=== PATIENT | female | born 1950 | race Caucasian/White ===

== ENCOUNTER → 2019-12-30 19:22 | Outpatient (ROUT) | payer MEDICARE, OTHER, SELFPAY ==
[2019-12-30 19:48] LABS: Add Manual Diff / Slide Review NO; Basophils Absolute Auto 100 /uL (0-100); Basophils Percent Auto 1.2 % (0-2); Eosinophils Absolute Auto 200 /uL (0-450); Eosinophils Percent Auto 2.6 % (2-4); Hematocrit 38.6 % (36-46); Hemoglobin 12.7 g/dL (12.0-16.0); Lymphocytes Absolute Auto 1100 /uL (1100-4500); Lymphocytes Percent Auto 17.7 % (25-40); Mean Corpuscular HGB Conc 32.8 % (30-36); Mean Corpuscular Hemoglobin 30.1 PG (26-34); Mean Corpuscular Volume 91.6 fL (80-100); Monocytes Absolute Auto 700 /uL (0-900); Monocytes Percent Auto 11.3 % (3-14); Neutrophils Absolute Auto 4200 /uL (1500-7000); Neutrophils Percent Auto 67.2 % (50-75); Platelet Count 306 X10^3/uL (150-400); Red Blood Cell Count 4.21 X10^6/uL (4.0-5.2); White Blood Cell Count 6.3 X10^3/uL (4.5-11.0)
[2019-12-30 20:00] LABS: Alanine Aminotransferase 31 IU/L (<35); Albumin Globulin Ratio 1.6 (1.0-2.8); Alkaline Phosphatase 112 U/L (38-126); Aspartate Aminotransferase 33 IU/L (14-36); BUN Creatinine Ratio 20.4 (6-22); Bilirubin Total 0.5 mg/dL (0.2-1.3); Blood Urea Nitrogen 10 mg/dL (7-17); Calcium 9.2 mg/dL (8.4-10.2); Carbon Dioxide 27 mmol/L (22-32); Chloride 108 mmol/L (98-107); Cholesterol 175 mg/dL (140-199); Estimated Glomerular Filt Rate > 60.0 mL/min (>60); Globulin 2.5 g/dL (1.7-4.1); Glucose 89 mg/dL (80-110); HDL Cholesterol 61 mg/dL (40-60); HEMOLYSIS 18 (0-50); LDL Cholesterol Calculated 89 mg/dL (<100); Potassium 4.4 mmol/L (3.4-5.1); Sodium 139 mmol/L (137-145); Total Protein 6.5 g/dL (6.3-8.2); Triglycerides 125 mg/dL (35-150)
[2019-12-30 20:04] LABS: Hemoglobin A1C% w Est Avg Glu 5.8 % (4.0-6.0)
[2019-12-30 20:29] LABS: TSH w/ Reflex to FT4 1.15 uIU/mL (0.47-4.68)
== END ==
PROVIDERS: Visit Provider Internal Medicine
DX: R60.9 Edema, unspecified (principal); E78.2 Mixed hyperlipidemia; E03.9 Hypothyroidism, unspecified; R73.01 Impaired fasting glucose
CPT/HCPCS: 80053; 80061; 83036; 84443; 85025

== ENCOUNTER → 2020-08-02 17:24 | Outpatient (ROUT) | payer MEDICARE, OTHER, SELFPAY ==
[2020-08-02 18:13] LABS: COVID19 -Nasal RAPID POSITIVE (Negative)
== END ==
PROVIDERS: Visit Provider Physician Assistant
DX: U07.1 COVID-19 (principal)
CPT/HCPCS: 87635

== ENCOUNTER → 2020-08-18 11:25 | Outpatient (CLI) | payer MEDICARE, OTHER, SELFPAY ==
--- NOTE | 2020-08-18 | DI.MG.S_ITS ---
BILATERAL DIGITAL SCREENING MAMMOGRAM 3D/2D WITH CAD: 08/18/2020 Comparison is made to exams dated: 09/25/2018 mammogram, 09/10/2017 mammogram, and 07/31/2016 mammogram - [facility]. The tissue of both breasts is predominantly fatty. Current study was also evaluated with a Computer Aided Detection (CAD) system. There are benign calcifications in both breasts. No significant masses, calcifications, or other findings are seen in either breast. There has been no significant interval change. IMPRESSION: BENIGN There is no mammographic evidence of malignancy. A 1 year screening mammogram is recommended. This exam was interpreted at Station ID: [id number]. NOTE: For mammograms, a report in lay terms will be sent to the patient. Approximately 15% of breast malignancies will not be visualized mammographically. In the management of a palpable breast mass, a negative mammogram must not discourage biopsy of a clinically suspicious lesion. Electronically Signed By: Raymond Wright acr/penrad:08/18/2020 13:30:03 letter sent: Normal Exam ACR BI-RADS Category 2: Benign Finding(s) 3342F
== END ==
PROVIDERS: PCP Internal Medicine; Referring Provider Internal Medicine; Visit Provider Internal Medicine
DX: Z12.31 Encounter for screening mammogram for malignant neoplasm of breast (principal)
CPT/HCPCS: 77063; 77067

== ENCOUNTER → 2021-03-08 09:48 | Outpatient (CLI) | payer MEDICARE, OTHER, SELFPAY ==
--- NOTE | 2021-03-08 | DI.RAD.S_ITS ---
PROCEDURE: XR DEXA AXIAL SKELETON INDICATIONS: asymptomatic menopausal state COMPARISON: None. FINDINGS: This blank DEXA report has been sent in error by the PACS system. The correct and complete report will be forthcoming in 1-2 days. Thank you for your patience and understanding. Dictated by: Mica Grier MD, PhD on 03/08/2021 at 15:36 Approved by: Mica Grier MD, PhD on 03/08/2021 at 15:36
== END ==
PROVIDERS: PCP Internal Medicine; Referring Provider Internal Medicine; Visit Provider Internal Medicine
DX: Z78.0 Asymptomatic menopausal state (principal); M85.88 Other specified disorders of bone density and structure, other site
CPT/HCPCS: 77080

== ENCOUNTER → 2021-04-11 10:01 | Outpatient (CLI) | payer MEDICARE, OTHER, SELFPAY ==
[2021-04-11 11:43] LABS: COVID19 -Nasal RAPID Negative (Negative)
== END ==
PROVIDERS: PCP Internal Medicine; Visit Provider Nurse Practitioner Family
DX: Z20.822 Contact with and (suspected) exposure to COVID-19 (principal); Z01.812 Encounter for preprocedural laboratory examination
CPT/HCPCS: 87635; C9803

== ENCOUNTER 2021-04-13 10:01 | Day surgery (SDC) | payer MEDICARE, OTHER, SELFPAY ==
[2021-04-13] VITALS (7 sets, daily range): BP systolic 113–150; BP diastolic 71–83; PULSE 77–88; RESP 14–18; TEMP 36.2–37.2; O2SAT 92–98; BMI 25.8
--- NOTE | 2021-04-13 | PATH_ITS ---
[facility] Accession Number: [id number] . 01 Material submitted: . colon - RANDOM COLON . 02 Diagnosis: Random Colon, Biopsies: Colonic mucosa with no diagnostic abnormality. Negative for active, chronic, and microscopic colitis. Negative for dysplasia and malignancy. . MRV 04/15/2021 1359 Local . 02 Electronically signed: . Francy Coleman MD, Pathologist NPI- [id number] . 01 Gross description: . RANDOM COLON: Received in formalin are multiple fragment(s) of gill, soft tissue measuring 1.4 x 0.3 x 0.1 cm in aggregate submitted entirely in 1 cassette(s) /NOAH 04/14/2021 0448 Local . 02 Pathologist provided ICD-10: Z12.11 . 02 CPT . 013781 Performed at: 01 [facility] [address] [facility] [address] [id number] MD Sammy Hammonds MD Phone: [phone] Performed at: 02 [facility] [address] [place], [place] [id number] MD Francy Coleman MD Phone: [phone]
[2021-04-13] MEDS: SODIUM CHLORIDE 0.9% 1,000 ML 84 ML IV (10:47)
--- NOTE | 2021-04-13 10:54 | PM.HP.1 ---
History of Present Illness History of Present Illness Date Patient Seen: 04/13/21 Chief complaint: SDC Narrative: Loose stools and family history of colon cancer need for colorectal cancer screening and biopsies to rule out microscopic colitis Patient History Medical History (Updated 08/02/20 @ 17:30 by Tessie Gonzalez PA-C) URI (upper respiratory infection) Family & Social History Social History: household members spouse Tobacco & Substance use: Smoking Status Never smoker alcohol intake current alcohol intake frequency 0-2 drinks per day Substance Use Type does not use Meds Home Medications and Allergies Home Medications Medication Instructions Recorded Confirmed Type levothyroxine 100 mcg tablet See Rx Instructions .ROUTE .COMPLEX 04/13/21 04/13/21 History simvastatin 40 mg tablet 40 mg PO BEDTIME 04/13/21 04/13/21 History Allergies Allergy/AdvReac Type Severity Reaction Status Date / Time No Known Drug Allergies Allergy Verified 04/13/21 10:27 Exam Vital Signs (past 8 hours): - 04/13/21 10:34 Temperature 99 F Pulse Rate 88 Respiratory Rate 16 Blood Pressure 141/80 H Pulse Oximetry 95 Oxygen Delivery Method Room Air Oxygen Flow Rate 0 Narrative Exam Narrative: Oropharynx free of lesion Chest clear to auscultation percussion Cardiac exam reveals no S3 or murmur Assessment & Plan Assessment & Plan narrative: Loose stools need for biopsies to rule out microscopic colitis. Also family history of colon cancer in first-degree relative need for screening. Risks benefits and alternatives have been explained. Time Spent With Patient Critical Care time: I spent a total of [] minutes of critical care time on this patient's care today; this time is exclusive of procedural time.
--- NOTE | 2021-04-13 10:55 | PM.OP.COLON ---
Operative Date/Time/Diagnoses Date of procedure: 04/13/21 Pre-op diagnosis: See indication and findings Procedure & Clinicians Study performed: Colonoscopy Indications: Loose stools and family history of colon cancer Surgeon: Aaron Davis Procedure Notes Procedure in detail: After informed consent was obtained the patient was placed in left lateral decubitus position. The video colonoscope was introduced the rectum slowly advanced cecum. On slow withdrawal mucosa was carefully examined. Preparation was good. The scope was removed. The patient tolerated procedure well. Blood loss none Complications none Sedation mac Findings 1. Normal colonoscopy to cecum. Biopsies taken to rule out microscopic colitis We will be in touch regarding biopsies. Her follow-up with a family history of colon cancer 1st degree relative should be 5 years Her issues with loose stool however probably pertain to her sugar free gum use and dairy products use. She should go off both of them though she can use gum became change sugar or NutraSweet. She should call for follow-up if she continues to have issues.
== END 2021-04-13 13:08 | disposition home or self-care (01) ==
PROVIDERS: PCP Internal Medicine; Referring Provider Internal Medicine Gastroenterology; Visit Provider Internal Medicine Gastroenterology
PROC: 0DJD8ZZ Inspection of Lower Intestinal Tract, Via Natural or Artificial Opening Endoscopic (ICD-10-PCS; CPT 45378; principal; 2021-04-13 11:00)
DX: R19.4 Change in bowel habit (principal); Z80.0 Family history of malignant neoplasm of digestive organs; K58.9 Irritable bowel syndrome, unspecified; K21.9 Gastro-esophageal reflux disease without esophagitis; E03.9 Hypothyroidism, unspecified; Z87.820 Personal history of traumatic brain injury
CPT/HCPCS: 45380; J2704

== ENCOUNTER → 2021-08-19 10:56 | Outpatient (CLI) | payer MEDICARE, SELFPAY ==
--- NOTE | 2021-08-19 | DI.MG.S_ITS ---
BILATERAL DIGITAL SCREENING MAMMOGRAM 3D/2D WITH CAD: 08/19/2021 CLINICAL: Routine screening. Family history of breast cancer. Comparison is made to exams dated: 08/18/2020 mammogram - [facility], 09/25/2018 mammogram, and 09/10/2017 mammogram - [facility]. There are scattered fibroglandular elements in both breasts. Current study was also evaluated with a Computer Aided Detection (CAD) system. There are benign calcifications in both breasts. No significant masses, calcifications, or other findings are seen in either breast. There has been no significant interval change. IMPRESSION: BENIGN There is no mammographic evidence of malignancy. A 1 year screening mammogram is recommended. This exam was interpreted at Station ID: [id number]. NOTE: For mammograms, a report in lay terms will be sent to the patient. Approximately 15% of breast malignancies will not be visualized mammographically. In the management of a palpable breast mass, a negative mammogram must not discourage biopsy of a clinically suspicious lesion. Electronically Signed By: Jimbo roberson/ulysses:08/19/2021 15:19:55 letter sent: Normal Exam ACR BI-RADS Category 2: Benign Finding(s) 3342F
== END ==
PROVIDERS: PCP Internal Medicine; Referring Provider Internal Medicine; Visit Provider Internal Medicine
DX: Z12.31 Encounter for screening mammogram for malignant neoplasm of breast (principal); Z80.3 Family history of malignant neoplasm of breast
CPT/HCPCS: 77063; 77067

== ENCOUNTER → 2022-05-02 13:22 | Outpatient (CLI) | payer OTHER, SELFPAY ==
--- NOTE | 2022-05-02 | DI.RAD.S_ITS ---
PROCEDURE: XR CHEST 2V INDICATIONS: PRURITIS TECHNIQUE: 2 views of the chest were acquired. COMPARISON: None. FINDINGS: Surgical changes and devices: None. Lungs and pleura: Lungs are clear. No pleural effusions or pneumothorax. Mediastinum: Mediastinal contours are normal. Heart size is enlarged. Bones and chest wall: No suspicious bony abnormalities. Soft tissues appear unremarkable. IMPRESSION: 1. No acute cardiopulmonary disease. 2. Mild cardiomegaly. Dictated by: Arley Syed [facility] Interpreted: Shoshana Her MD on 05/02/2022 at 13:41 Transcribed by: FRANDY on 05/02/2022 at 13:42 Approved by: Shoshana Her M.D. on 05/02/2022 at 15:39
[2022-05-02 14:25] LABS: Add Manual Diff / Slide Review NO; Basophils Absolute Auto 100 /uL (0-100); Basophils Percent Auto 0.8 % (0-2); Eosinophils Absolute Auto 100 /uL (0-450); Eosinophils Percent Auto 1.6 % (2-4); Hematocrit 37.7 % (36-46); Hemoglobin 12.5 g/dL (12.0-16.0); Lymphocytes Absolute Auto 1200 /uL (1100-4500); Lymphocytes Percent Auto 15.9 % (25-40); Mean Corpuscular HGB Conc 33.1 % (30-36); Mean Corpuscular Volume 90.7 fL (80-100); Monocytes Absolute Auto 600 /uL (0-900); Monocytes Percent Auto 8.6 % (3-14); Neutrophils Absolute Auto 5400 /uL (1500-7000); Neutrophils Percent Auto 73.1 % (50-75); Platelet Count 319 X10^3/uL (150-400); Red Blood Cell Count 4.16 X10^6/uL (4.0-5.2); Red Cell Distribution Width 16.4 % (11.6-14.8); White Blood Cell Count 7.4 X10^3/uL (4.5-11.0)
[2022-05-02 14:43] LABS: Alanine Aminotransferase 30 IU/L (<35); Albumin 4.3 g/dL (3.5-5.0); Albumin Globulin Ratio 1.3 (1.0-2.8); Alkaline Phosphatase 146 U/L (38-126); Aspartate Aminotransferase 25 IU/L (14-36); BUN Creatinine Ratio 14.8 (6-22); Bilirubin Total 0.6 mg/dL (0.2-1.3); Bilirubin Unconjugated 0.6 mg/dL (0.0-1.1); Blood Urea Nitrogen 9 mg/dL (7-17); Estimated Glomerular Filt Rate > 60 mL/min (>60); Globulin 3.3 g/dL (1.7-4.1); HEMOLYSIS < 15 (0-50); Total Protein 7.6 g/dL (6.3-8.2)
== END ==
PROVIDERS: PCP Internal Medicine; Referring Provider Physician Assistant Medical; Visit Provider Physician Assistant Medical
DX: L29.8 Other pruritus (principal); I51.7 Cardiomegaly
CPT/HCPCS: 36415; 71046; 80076; 82565; 84520; 85025

== ENCOUNTER → 2022-08-14 09:03 | Outpatient (CLI) | payer MEDICARE, SELFPAY ==
[2022-08-14 10:54] LABS: Hematocrit 36.6 % (36-46); Mean Corpuscular HGB Conc 32.8 % (30-36); Mean Corpuscular Hemoglobin 29.9 PG (26-34); Mean Corpuscular Volume 91.1 fL (80-100); Platelet Count 289 X10^3/uL (150-400); Red Blood Cell Count 4.01 X10^6/uL (4.0-5.2); Red Cell Distribution Width 16.8 % (11.6-14.8); White Blood Cell Count 5.7 X10^3/uL (4.5-11.0)
[2022-08-14 11:47] LABS: Alanine Aminotransferase 46 IU/L (<35); Albumin Globulin Ratio 1.5 (1.0-2.8); Alkaline Phosphatase 160 U/L (38-126); Aspartate Aminotransferase 34 IU/L (14-36); BUN Creatinine Ratio 21.1 (6-22); Bilirubin Total 0.8 mg/dL (0.2-1.3); Blood Urea Nitrogen 12 mg/dL (7-17); Calcium 9.1 mg/dL (8.4-10.2); Carbon Dioxide 27 mmol/L (22-32); Chloride 104 mmol/L (98-107); Cholesterol 187 mg/dL (140-199); Estimated Glomerular Filt Rate > 60 mL/min (>60); Globulin 2.7 g/dL (1.7-4.1); Glucose 91 mg/dL (80-110); HDL Cholesterol 78 mg/dL (40-60); HEMOLYSIS < 15 (0-50); LDL Cholesterol Calculated 81 mg/dL (<100); Potassium 4.4 mmol/L (3.4-5.1); Sodium 139 mmol/L (137-145); Total Protein 6.7 g/dL (6.3-8.2); Triglycerides 140 mg/dL (35-150)
[2022-08-14 12:07] LABS: Hemoglobin A1C% w Est Avg Glu 5.9 % (4.0-6.0)
[2022-08-14 12:11] LABS: TSH w/ Reflex to FT4 1.29 uIU/mL (0.47-4.68)
== END ==
PROVIDERS: PCP Internal Medicine; Referring Provider Internal Medicine; Visit Provider Internal Medicine
DX: E03.9 Hypothyroidism, unspecified (principal); R73.01 Impaired fasting glucose; E78.2 Mixed hyperlipidemia
CPT/HCPCS: 36415; 80053; 80061; 83036; 84443; 85027

== ENCOUNTER → 2022-09-07 11:01 | Outpatient (CLI) | payer MEDICARE, SELFPAY ==
--- NOTE | 2022-09-07 | DI.MG.S_ITS ---
BILATERAL DIGITAL SCREENING MAMMOGRAM 3D/2D WITH CAD: 09/07/2022 CLINICAL: Routine screening. Family history of breast cancer. Comparison is made to exams dated: 08/19/2021 mammogram, 08/18/2020 mammogram - [facility], and 09/25/2018 mammogram - [facility]. There are scattered areas of fibroglandular density in both breasts (category b / 25%-50% glandular tissue). Current study was also evaluated with a Computer Aided Detection (CAD) system. There are benign calcifications in both breasts. No significant masses, calcifications, or other findings are seen in either breast. There has been no significant interval change. IMPRESSION: BENIGN There is no mammographic evidence of malignancy. A 1 year screening mammogram is recommended. Based on the Tyrer Cuzick model (a risk assessment model) the patient's lifetime risk is 5.1% and her 10 year risk is 4.6%. According to the ACR, ACS, and NCCN guidelines, an annual breast MRI exam along with mammogram is recommended if the patient's lifetime risk is 20% or greater. This exam was interpreted at Station ID: [id number]. NOTE: For mammograms, a report in lay terms will be sent to the patient. Approximately 15% of breast malignancies will not be visualized mammographically. In the management of a palpable breast mass, a negative mammogram must not discourage biopsy of a clinically suspicious lesion. Electronically Signed By: Chance Veliz M.D., jr/ulysses:09/07/2022 15:35:06 letter sent: Normal Exam ACR BI-RADS Category 2: Benign Finding(s) 3342F
== END ==
PROVIDERS: PCP Internal Medicine; Referring Provider Internal Medicine; Visit Provider Internal Medicine
DX: Z12.31 Encounter for screening mammogram for malignant neoplasm of breast (principal); Z80.3 Family history of malignant neoplasm of breast
CPT/HCPCS: 77063; 77067

== ENCOUNTER → 2023-03-06 12:52 | Outpatient (CLI) | payer MEDICARE, SELFPAY ==
[2023-03-06 14:53] LABS: Appearance Urine UA CLEAR; Bilirubin Urine UA NEGATIVE (NEGATIVE); Color Urine UA YELLOW; Glucose Urine UA NEGATIVE (Negative); Ketones Urine UA NEGATIVE (NEGATIVE); Leukocyte Esterase Urine UA NEGATIVE (NEGATIVE); Nitrite Urine UA NEGATIVE (Negative); Occult Blood Urine UA NEGATIVE (Negative); Protein Urine UA NEGATIVE (Negative); Specific Gravity Urine UA <=1.005 (1.000-1.035); Urobilinogen Urine UA 0.2 E.U./dL (0.2)
[2023-03-06 15:03] LABS: pH Urine UA 5.5 (4.5-8.0)
[2023-03-06 15:04] LABS: Bacteria Urine Few (2-10); RBC Urine 0-1/HPF (0-5/HPF); Squamous Epithelial Cell Urine 0-1 /HPF (0-5/HPF); WBC Urine 0-1/HPF (0-5/HPF)
[2023-03-06 15:05] LABS: Culture Indicated Urine Cult Not Indicated
== END ==
PROVIDERS: PCP Internal Medicine; Referring Provider Internal Medicine; Visit Provider Internal Medicine
DX: R39.15 Urgency of urination (principal)
CPT/HCPCS: 81001

== ENCOUNTER → 2023-03-09 13:26 | Outpatient (CLI) | payer MEDICARE, SELFPAY ==
[2023-03-09 15:19] LABS: Influenza A - CEPHEID Flu A NEGATIVE (NEGATIVE); Influenza B - CEPHEID Flu B NEGATIVE (NEGATIVE); Respiratory Syncytial Virus Negative (Negative)
[2023-03-09 16:20] LABS: COVID-19 CEPHEID 4-PLEX PCR Negative (Negative)
== END ==
PROVIDERS: PCP Internal Medicine; Visit Provider Physician Assistant
DX: R50.9 Fever, unspecified (principal)
CPT/HCPCS: 0241U; 87086

== ENCOUNTER → 2023-04-27 09:20 | Outpatient (CLI) | payer MEDICARE, SELFPAY ==
--- NOTE | 2023-04-27 09:20 | DI.US.S_ITS ---
PROCEDURE: US PERIPH VENOUS LOW EXTREM RT INDICATIONS: RIGHT LOWER EXTREMITY EDEMA TECHNIQUE: Real-time imaging, as well as color and pulse Doppler interrogation, were performed of the lower extremity deep veins from the inguinal ligament to the popliteal fossa, with documentation of the visualized calf veins. COMPARISON: None. FINDINGS: There are partially occlusive deep venous thrombi involving the right mid superficial femoral vein extending through the right popliteal vein and right posterior tibial vein. The anterior tibial vein is patent. Other visualized more proximal deep venous vessels are patent. 2 Álvarez cyst noted with 1 measuring 3.7 cm in the 2nd measuring approximately 1.1 cm. IMPRESSION: Partially occlusive deep venous thrombosis involving the right mid superficial femoral vein with extension to the popliteal vein and posterior tibial vein. Findings were relayed to the ordering physician by the it project manager at time of study completion. Dictated by: Guillermo Calderon M.D. on 04/27/2023 at 10:31 Approved by: Guillermo Calderon M.D. on 04/27/2023 at 10:32
[2023-04-27 11:51] LABS: INR 1.1 (0.9-1.3); Prothrombin Time 12.1 SECONDS (10.1-12.7)
[2023-04-27 11:54] LABS: PTT Partial Thromboplastin Tim 27 SECONDS (26-36)
[2023-04-27 11:58] LABS: BUN Creatinine Ratio 16.9 (6-22); Blood Urea Nitrogen 10 mg/dL (7-17); Calcium 8.7 mg/dL (8.4-10.2); Carbon Dioxide 26 mmol/L (22-32); Chloride 104 mmol/L (98-107); Estimated Glomerular Filt Rate > 60 mL/min (>60); Glucose 141 mg/dL (80-110); HEMOLYSIS < 15 (0-50); Potassium 3.5 mmol/L (3.4-5.1); Sodium 139 mmol/L (137-145)
[2023-04-30 22:39] LABS: Cardiolipin Ab IgA <9 APL U/mL (0-11); Cardiolipin Ab IgG <9 GPL U/mL (0-14); Cardiolipin Ab IgM <9 MPL U/mL (0-12); Protein C-Functional 171 % (73-180); Protein S-Functional 66 % (63-140)
[2023-05-01 10:22] LABS: Dilute Russell Viper Venom 39.9 sec (0.0-47.0); Lupus Reflex Interpretation Comment: (.); PTT-LA 36.7 sec (0.0-43.5)
== END ==
PROVIDERS: PCP Internal Medicine; Referring Provider Internal Medicine; Visit Provider Internal Medicine
DX: I82.411 Acute embolism and thrombosis of right femoral vein (principal); I82.431 Acute embolism and thrombosis of right popliteal vein; I82.441 Acute embolism and thrombosis of right tibial vein
CPT/HCPCS: 36415; 80048; 81241; 85300; 85303; 85306; 85598; 85610; 85613; 85730; 86147; 93971

== ENCOUNTER → 2023-05-25 13:18 | Outpatient (CLI) | payer MEDICARE, SELFPAY | PROVIDERS: PCP Internal Medicine; Visit Provider Nurse Practitioner Family | DX: R30.0 Dysuria (principal) | CPT/HCPCS: 87077; 87086; 87186 ==

== ENCOUNTER → 2023-08-09 15:28 | Outpatient (CLI) | payer MEDICARE, SELFPAY ==
--- NOTE | 2023-08-09 15:31 | DI.RAD.S_ITS ---
PROCEDURE: XR CHEST 2V INDICATIONS: shortness of breath TECHNIQUE: 2 views of the chest were acquired. COMPARISON: [facility], CR, XR CHEST 2V, 05/02/2022, 13:34. FINDINGS: Surgical changes and devices: None. Lungs and pleura: Lungs are clear. No pleural effusions or pneumothorax. Mediastinum: Mediastinal contours are normal. Heart size is normal. Bones and chest wall: No suspicious bony abnormalities. Soft tissues appear unremarkable. IMPRESSION: No acute cardiopulmonary abnormality is seen. Dictated by: Yeny Moody M.D. on 08/09/2023 at 15:57 Approved by: Yeny Moody M.D. on 08/09/2023 at 15:57
[2023-08-09 16:46] LABS: Mean Corpuscular HGB Conc 32.6 % (30-36); Mean Corpuscular Hemoglobin 40.9 PG (26-34); Mean Corpuscular Volume 125.1 fL (80-100); Platelet Count 200 X10^3/uL (150-400); Red Blood Cell Count 1.31 X10^6/uL (4.0-5.2); Red Cell Distribution Width 16.9 % (11.6-14.8)
[2023-08-09 17:05] LABS: Hematocrit 16.4 % (36-46); Hemoglobin 5.4 g/dL (12.0-16.0); White Blood Cell Count 1.9 X10^3/uL (4.5-11.0)
[2023-08-09 17:18] LABS: Aspartate Aminotransferase 26 IU/L (14-36); BUN Creatinine Ratio 21.2 (6-22); Blood Urea Nitrogen 11 mg/dL (7-17); Calcium 8.9 mg/dL (8.4-10.2); Carbon Dioxide 28 mmol/L (22-32); Chloride 102 mmol/L (98-107); Cholesterol 137 mg/dL (140-199); Estimated Glomerular Filt Rate > 60 mL/min (>60); Glucose 98 mg/dL (80-110); HDL Cholesterol 36 mg/dL (40-60); HEMOLYSIS < 15 (0-50); LDL Cholesterol Calculated 68 mg/dL (<100); Potassium 3.4 mmol/L (3.4-5.1); Sodium 137 mmol/L (137-145); Triglycerides 164 mg/dL (35-150)
[2023-08-09 17:46] LABS: TSH w/ Reflex to FT4 0.56 uIU/mL (0.47-4.68)
== END ==
PROVIDERS: PCP Internal Medicine; Referring Provider Internal Medicine; Visit Provider Internal Medicine
DX: E03.9 Hypothyroidism, unspecified (principal); R73.01 Impaired fasting glucose; E78.2 Mixed hyperlipidemia; U09.9 Post COVID-19 condition, unspecified; I82.409 Acute embolism and thrombosis of unspecified deep veins of unspecified lower extremity
CPT/HCPCS: 36415; 71046; 80048; 80061; 81240; 84443; 84450; 85027

== ENCOUNTER 2023-08-09 17:36 | Inpatient (IN) | payer OTHER, SELFPAY ==
[2023-08-09] VITALS (8 sets, daily range): BP systolic 128–156; BP diastolic 62–77; PULSE 86–95; RESP 14–18; TEMP 36.6–37.2; O2SAT 95–96; BMI 25.5; BMI 25.6
--- NOTE | 2023-08-09 18:03 | ED.RECABL ---
HPI - Recheck/Abnormal Lab/Rx General Chief Complaint: Recheck/Abnormal Lab/Rx Stated Complaint: red bloo cell issue, sent by md Time Seen by Provider: 08/09/23 17:48 Source: patient Mode of arrival: Ambulatory History of Present Illness HPI narrative: 73-year-old female with previous history of DVT on Eliquis, hypothyroidism presents by private vehicle from home for abnormal labs. Patient states that since [place] she is felt progressively more fatigued and short of breath. She saw her primary care doctor earlier today who ordered labs. These labs were significant for low hemoglobin and low white blood cell count. She was referred to the emergency department for further treatment. Patient denies hematuria, vaginal bleeding, dark tarry stools, bloody bowel movements. Patient has previous remote hysterectomy from uterine prolapse Related Data Home Medications Medication Instructions Recorded Confirmed clobetasol 0.05 % scalp solution 1 applic topical QAM AND QPM 03/06/23 08/09/23 gabapentin 100 mg capsule 100 mg PO BID 03/06/23 08/09/23 Previous Rx's Medication Instructions Recorded simvastatin 40 mg tablet 40 mg PO BEDTIME #90 tabs 06/11/23 fluticasone propionate 50 1 spray intranasal Q12H #16 grams 06/30/23 mcg/actuation nasal spray,suspension (Flonase Allergy Relief) levothyroxine 100 mcg tablet 100 mcg PO DAILY #90 tabs 07/26/23 apixaban 5 mg tablet (Eliquis) 5 mg PO BID #180 tabs 08/09/23 Allergies Allergy/AdvReac Type Severity Reaction Status Date / Time bacitracin Allergy Mild Blister Verified 08/09/23 08:34 [From Polysporin(bacitracin base)] neomycin Allergy Mild Blister Verified 08/09/23 08:34 [From Neosporin ([id number])] polymyxin B Allergy Mild Blister Verified 08/09/23 08:34 [From Polysporin(bacitracin base)] Review of Systems Review of Systems Narrative: Negative except as noted above Patient History Medical History Trigger finger, right ring finger Post-COVID syndrome DVT (deep venous thrombosis) Eczematous dermatitis Overweight Osteopenia Family history of melanoma Personal history of malignant melanoma Family history of colon cancer BPPV (benign paroxysmal positional vertigo) Urinary incontinence Chronic insomnia Irritable bowel syndrome with diarrhea GERD without esophagitis Impaired fasting glucose Acquired hypothyroidism Mixed hyperlipidemia History of traumatic brain injury Actinic keratosis (~1999) Mumps Measles (~1953) Chicken pox (~1951) Tinnitus (~2007) Thyroid nodule (~1980) Skin cancer (~1999) Melanoma (~2018) Surgical History Anesthesia History of varicose vein stripping (~1985) History of thyroidectomy (~1975) History of hysterectomy (~2010) Family History Father Cancer Mother Cancer Brother Cancer Grandfather Diabetes mellitus Grandmother Cancer Social History details: (Juan), four daughters household members: spouse Smoking Status: Never smoker alcohol intake: current Smoking Status: Never smoker alcohol intake frequency: 0-2 drinks per day Substance Use Type: does not use Exam Initial Vital Signs Initial Vital Signs: Vital Signs Temperature 97.9 F 08/09/23 17:50 Pulse Rate 95 H 08/09/23 17:50 Respiratory Rate 16 08/09/23 17:50 Blood Pressure 128/64 08/09/23 17:50 Pulse Oximetry 95 08/09/23 17:50 Oxygen Delivery Method Room Air 08/09/23 17:50 Const: Awake, alert, no acute distress, nontoxic appearing Cardiac: regular rate, regular rhythm RESP: unlabored, clear bilaterally, no wheezing GI: Atraumatic, soft, nontender, nondistended : No hemorrhoids, no gross blood, no melena, normal rectal tone MSK: Atraumatic, full range of motion, pulses equal Skin: Warm, Dry, intact, no rashes Neuro: AO x3, CN II-XII grossly intact, moves all extremities Psych: affect normal, mood normal, not suicidal, not homicidal Course Orders Ordered: ED Orders 08/09/23 18:09 B12 [Vitamin B12] Stat CBC Auto Diff [Complete Blood Count AUTO DIFF] Stat CMP [Comprehensive Metabolic Panel] Stat LDH [Lactate Dehydrogenase] Stat Type and Screen Stat transfuse [Packed Cells] Stat 08/09/23 19:35 CT angio chest PE protocol Stat 08/09/23 20:21 UA Complete [Urinalysis and Microscopic] Stat Urine Culture Stat 08/09/23 22:28 HH [Hemoglobin and Hematocrit] Stat RETIC [Reticulocyte Count, Percent] Stat Vital Signs Vital signs: Vital Signs - 8 hr 08/09/23 17:50 08/09/23 18:43 08/09/23 19:24 Temperature 97.9 F 99 F Pulse Rate 95 H 89 88 Respiratory Rate 16 14 14 Blood Pressure 128/64 137/62 140/64 Pulse Oximetry 95 96 Oxygen Delivery Method Room Air Nasal Cannula Oxygen Flow Rate 2 08/09/23 19:36 08/09/23 20:57 08/09/23 20:59 Temperature 99.0 F 98.0 F 98 F Pulse Rate 90 86 86 Respiratory Rate 14 14 14 Blood Pressure 137/62 143/77 H 146/69 H Pulse Oximetry Oxygen Delivery Method Oxygen Flow Rate MDM - Recheck/Abnormal Lab/Rx Differential Diagnosis Differential diagnosis: Likely other (blood loss anemia, anemia of chronic disease, vitamin deficiency anemia) Lab Data 08/09/23 22:28 08/09/23 18:09 Labs: Lab Results 08/09/23 08/09/23 08/09/23 Range/Units 18:09 20:21 22:28 WBC 2.1 L (4.5-11.0) X10^3/uL RBC 1.37 L (4.0-5.2) X10^6/uL Hgb 5.5 L* 6.9 L* (12.0-16.0) g/dL Hct 17.1 L* 20.3 L* (36-46) % MCV 124.4 H (80-100) fL MCH 40.4 H (26-34) PG MCHC 32.5 (30-36) % RDW 17.0 H (11.6-14.8) % Plt Count 202 (150-400) X10^3/uL Neut % (Auto) Not Reportable Lymph % (Auto) Not Reportable [place] % (Auto) Not Reportable Eos % (Auto) Not Reportable Baso % (Auto) Not Reportable Lymph # (Auto) Not Reportable [place] # (Auto) Not Reportable Baso # (Auto) Not Reportable Total Counted 100 Seg Neutrophils % 29.0 L (38-70) % Band Neutrophils % 4.0 (3-7) % Lymphocytes % (Manual) 59.0 H (25-45) % Monocytes % (Manual) 7.0 (2-11) % Metamyelocytes % 1.0 H (-0) % Neutrophils # (Manual) 693 L (1898-9736) /uL RBC Morphology See below Macrocytosis 3+ H Percent Retic 1.8 (1.1-2.6) % Sodium 138 (137-145) mmol/L Potassium 3.4 (3.4-5.1) mmol/L Chloride 103 (98-107) mmol/L Carbon Dioxide 27 (22-32) mmol/L BUN 11 (7-17) mg/dL Creatinine 0.46 L (0.52-1.04) mg/dL Estimated GFR > 60 (>60) mL/min BUN/Creatinine Ratio 23.9 H (6-22) Glucose 100 (80-110) mg/dL Calcium 8.9 (8.4-10.2) mg/dL Total Bilirubin 0.8 (0.2-1.3) mg/dL AST 25 (14-36) IU/L ALT 24 (<35) IU/L Alkaline Phosphatase 154 H (38-126) U/L Lactate Dehydrogenase 370 H (120-246) U/L Total Protein 7.9 (6.3-8.2) g/dL Albumin 4.2 (3.5-5.0) g/dL Globulin 3.7 (1.7-4.1) g/dL Albumin/Globulin Ratio 1.1 (1.0-2.8) Vitamin B12 532 (239-931) pg/mL Urine Color Yellow Urine Appearance Clear Urine pH 5.5 (4.5-8.0) Ur Specific [place] 1.015 (1.000-1.035) Urine Protein Negative (Negative) Urine Glucose (UA) Negative (Negative) g/dL Urine Ketones Negative (NEGATIVE) Urine Occult Blood Negative (Negative) Urine Nitrate Positive H (Negative) Urine Bilirubin Negative (NEGATIVE) Urine Urobilinogen 0.2 (0.2) E.U./dL Ur Leukocyte Esterase Negative (NEGATIVE) Urine RBC 0-1/hpf (0-5/HPF) Urine WBC 1-5/hpf (0-5/HPF) Ur Squamous Epith Cells 0-1 /hpf (0-5/HPF) Urine Bacteria None seen (None) Ur Culture Indicated? Specimen cultured Vol Urine Centrifuged 10ml (spun) Blood Type A Positive Antibody Screen Negative Crossmatch See Detail MDM Narrative Medical decision making narrative: Patient presenting for abnormal labs. She has been short of breath and fatigued over the last several weeks, found to have hemoglobin less than 7. Hemodynamically stable, no obvious cause of bleed on review of systems, patient denies any gross blood in her urine, stool, or other recent bleeding. Laboratory work significant for hemoglobin 5.5. 2 units of packed red blood cells ordered for transfusion. Nursing reported brief episodes where patient would have drop in her pulse ox to the upper 80s with good waveform. Patient denying shortness of breath or chest pain, however given that she has had a history of DVT and now new recent leukopenia and anemia we will order CT angio. CT angio negative for acute findings, incidental findings of ground-glass nodules in the right lung, uncertain significance. Note also made of left hydronephrosis versus pelvocaliectasis. Patient denies flank pain or urinary symptoms, likely incidental at this time. Repeat H&H only 6.9 after receiving 2 units of packed red blood cells. We will admit the patient for additional transfusion and further hemodynamic monitoring. Patient and has been in agreement at this time. Critical Care Time Critical Care Time Critical Care Time: Yes Total Critical Care Time: 36 Attestation: Anemia requiring transfusion, hemodynamic reassessments, close monitoring. Discharge Plan Departure Patient Disposition: Admitted as Observation Clinical Impression: Profound anemia Qualifiers: Anemia type: unspecified type Qualified Code(s): D64.9 - Anemia, unspecified Leukocytopenia, unspecified Qualifiers: Leukopenia type: unspecified Qualified Code(s): D72.819 - Decreased white blood cell count, unspecified Admit Date/Time: 08/09/23 22:51 Admit Provider: Sedrick Morataya
--- NOTE | 2023-08-09 18:18 | PC.NURSE ---
patient is short of breathe and that her only complaint. She denies n/v/d. she denies black tarry stool or coffee ground emesis.
[2023-08-09 18:27] LABS: Mean Corpuscular HGB Conc 32.5 % (30-36); Mean Corpuscular Hemoglobin 40.4 PG (26-34); Mean Corpuscular Volume 124.4 fL (80-100); Platelet Count 202 X10^3/uL (150-400); Red Blood Cell Count 1.37 X10^6/uL (4.0-5.2); White Blood Cell Count 2.1 X10^3/uL (4.5-11.0)
[2023-08-09 18:28] LABS: Hemoglobin 5.5 g/dL (12.0-16.0)
[2023-08-09 18:29] LABS: Add Manual Diff / Slide Review YES; Hematocrit 17.1 % (36-46)
[2023-08-09 18:44] LABS: Alanine Aminotransferase 24 IU/L (<35); Albumin 4.2 g/dL (3.5-5.0); Albumin Globulin Ratio 1.1 (1.0-2.8); Alkaline Phosphatase 154 U/L (38-126); Aspartate Aminotransferase 25 IU/L (14-36); BUN Creatinine Ratio 23.9 (6-22); Bilirubin Total 0.8 mg/dL (0.2-1.3); Blood Urea Nitrogen 11 mg/dL (7-17); Calcium 8.9 mg/dL (8.4-10.2); Carbon Dioxide 27 mmol/L (22-32); Chloride 103 mmol/L (98-107); Estimated Glomerular Filt Rate > 60 mL/min (>60); Globulin 3.7 g/dL (1.7-4.1); Glucose 100 mg/dL (80-110); HEMOLYSIS < 15 (0-50); Potassium 3.4 mmol/L (3.4-5.1); Sodium 138 mmol/L (137-145); Total Protein 7.9 g/dL (6.3-8.2)
[2023-08-09 18:50] LABS: Neutrophils Absolute Manual 693 /uL (3000-5900); Total Cells Counted 100
[2023-08-09 18:51] LABS: Macrocytosis 3+
--- NOTE | 2023-08-09 19:35 | DI.CT.S_ITS ---
PROCEDURE: CT ANGIO CHEST PE PROTOCOL INDICATIONS: HYPOXIA, DYSPNEA, HX DVT TECHNIQUE: After the administration of intravenous contrast, 2 mm thick sections acquired from the pulmonary apices to the posterior costophrenic angles. 3-dimensional maximum intensity projection (MIP) coronal and sagittal reformats were then acquired through the thorax. For radiation dose reduction, the following was used: automated exposure control, adjustment of mA and/or kV according to patient size. COMPARISON: None. FINDINGS: Image quality: Diagnostic. Pulmonary arteries: Pulmonary arteries are normal in size, and demonstrate no intraluminal filling defects to suggest central pulmonary embolism. Lower Neck: No enlarged lymph nodes. Thyroid: Left thyroid lobe is absent. Right thyroid lobe is unremarkable. Axillae: No enlarged lymph nodes. Chest Wall: Unremarkable. Bones: Unremarkable. Lungs and Pleura: Mild central consolidative nodules and ground-glass of the right lung, in a non dependent distribution. Heart: Heart size is enlarged. No pericardial effusion. Mild coronary calcifications for age. Thoracic Vessels: No aortic aneurysm. Mediastinum and Juliet: No enlarged lymph nodes. Esophagus: No wall thickening. Small hiatal hernia. Upper Abdomen: Possible mild left hydronephrosis. IMPRESSION: No pulmonary embolus. Mild consolidative nodules and ground-glass in the right lung, most consistent with mild infection. This does not have the appearance of COVID pneumonia. Possible mild left hydronephrosis versus pelvocaliectasis. Correlate with left flank pain to exclude an obstructive process such as nephrolithiasis or ureterolithiasis. Dictated by: Lorne Khan M.D. on 08/09/2023 at 20:36 Approved by: Lorne Khan M.D. on 08/09/2023 at 20:43
[2023-08-09 20:30] LABS: Appearance Urine UA CLEAR; Bilirubin Urine UA NEGATIVE (NEGATIVE); Color Urine UA YELLOW; Glucose Urine UA NEGATIVE (Negative); Ketones Urine UA NEGATIVE (NEGATIVE); Leukocyte Esterase Urine UA NEGATIVE (NEGATIVE); Nitrite Urine UA POSITIVE (Negative); Occult Blood Urine UA NEGATIVE (Negative); Protein Urine UA NEGATIVE (Negative); Specific Gravity Urine UA 1.015 (1.000-1.035); Urobilinogen Urine UA 0.2 E.U./dL (0.2)
[2023-08-09 20:32] LABS: pH Urine UA 5.5 (4.5-8.0)
[2023-08-09 20:55] LABS: RBC Urine 0-1/HPF (0-5/HPF); Urine Volume 10mL (spun); WBC Urine 1-5/HPF (0-5/HPF)
[2023-08-09 20:56] LABS: Bacteria Urine None Seen; Culture Indicated Urine Specimen Cultured; Squamous Epithelial Cell Urine 0-1 /HPF (0-5/HPF)
--- NOTE | 2023-08-09 21:55 | PC.NURSE ---
patient walked on pulse ox on RA and was able to ambulate independently 1 lap around the ER approx 230ft. Denied SOB and maintained O2 sat at 94%.
[2023-08-09 22:42] LABS: Hematocrit 20.3 % (36-46); Hemoglobin 6.9 g/dL (12.0-16.0)
[2023-08-09 22:47] LABS: Reticulocyte Count, Percent 1.8 % (1.1-2.6)
[2023-08-09 22:56] LABS: Lactate Dehydrogenase 370 U/L (120-246)
[2023-08-09 23:47] LABS: Vitamin B12 532 pg/mL (239-931)
[2023-08-10] VITALS: BP 139/66; PULSE 89; RESP 17; TEMP 36.2; O2SAT 96
--- NOTE | 2023-08-10 00:05 | PC.NURSE ---
Pt. transported to TELE Rm 224 w/ 3rd unit PRBC transfusing. EDRN unable to complete TAR/END transfusion @ time of transfer.
--- NOTE | 2023-08-10 01:22 | PC.ADMIT ---
Addendum entered by Lottie Amor R.N. 08/10/23 03:52: Patient had Mg and H& H ordered for @ 03:00. CBC, in addition to other labs, to be drawn this morning. Per Dr. Douglass, ok to draw all labs at the same time in the morning. Addendum entered by Lottie Amor R.N. 08/10/23 03:00: 3 units of blood transfused, Dr. Douglass ordered another unit. Called for clarification, he stated to give the 4th unit if H & H is < 7.0. Lab to collect. Original Note: [email or web address] [place] [place] Admission Note: Patient arrived to AC unit from ED @ 00:01 via stretcher. Alert and oriented x 4, cooperative with care. Denies chest pain and dizziness, reports shortness of breath on exertion. Blood transfusing at 150/hr upon admit. Oriented to room and call light, bed in low/locked position, call light within reach and bed alarm on. The patient,Brittany Bryant,73 y/o, was given written information regarding hospital policies, unit procedures and contact persons. Patient's smoking status: Never smoker. Vital Signs - 8 hr 08/09/23 17:50 08/09/23 18:43 08/09/23 19:24 Temperature 97.9 F 99 F Pulse Rate 95 H 89 88 Respiratory Rate 16 14 14 Blood Pressure 128/64 137/62 140/64 Pulse Oximetry 95 96 Oxygen Delivery Method Room Air Nasal Cannula Oxygen Flow Rate 2 08/09/23 19:36 08/09/23 20:57 08/09/23 20:59 Temperature 99.0 F 98.0 F 98 F Pulse Rate 90 86 86 Respiratory Rate 14 14 14 Blood Pressure 137/62 143/77 H 146/69 H Pulse Oximetry Oxygen Delivery Method Oxygen Flow Rate 08/09/23 23:18 08/09/23 23:33 08/09/23 23:36 Temperature 98.5 F 97.9 F Pulse Rate 86 87 Respiratory Rate 18 18 Blood Pressure 156/74 H 143/69 H Pulse Oximetry Oxygen Delivery Method Room Air Oxygen Flow Rate 08/10/23 00:00 Temperature 97.1 F L Pulse Rate 89 Respiratory Rate 17 Blood Pressure 139/66 Pulse Oximetry 96 Oxygen Delivery Method Oxygen Flow Rate 0
[2023-08-10 01:50] VITALS: BP 139/74; PULSE 81; RESP 18; TEMP 36.9
[2023-08-10 01:54] VITALS: BP 139/74; PULSE 81; RESP 18; TEMP 36.9
--- NOTE | 2023-08-10 02:29 | PM.HP.1 ---
History of Present Illness History of Present Illness Date Patient Seen: 08/10/23 Time Patient Seen: 02:02 Chief complaint: red blood cell issue, sent by Narrative: 73 years old female with a past medical history of deep vein thrombosis of the right lower extremity on Eliquis, hypothyroidism, neuropathy, recent COVID infection in June 2023 was sent to the emergency room for severe anemia. Patient has had generalized fatigue with shortness of breath on exertion since her COVID infection and was eventually evaluated by her primary physician earlier in the day. Follow-up labs showed significant low hemoglobin with low white counts following which she was advised to go to the emergency room. Denies any chest pain palpitation dizziness or loss of consciousness. Denies any bleeding either in the stool or urine or vaginal bleeding. No recent history of dark tarry stools. No fever episodes in the last week. Denies any blurred vision diplopia headache or focal neurological deficits. Repeat follow-up labs emergency room revealed a hemoglobin of 6.9. CBC earlier in the day had shown a WBC count of 2.1 with a hemoglobin of 5.5 and a platelet count of 202. Lymphocytes are 59% with 29% neutrophils 3+ macrocytosis. Urine analysis is negative for WBC esterase and blood. Patient was admitted for further evaluation [facility] Medical History Trigger finger, right ring finger Post-COVID syndrome DVT (deep venous thrombosis) Eczematous dermatitis Overweight Osteopenia Family history of melanoma Personal history of malignant melanoma Family history of colon cancer BPPV (benign paroxysmal positional vertigo) Urinary incontinence Chronic insomnia Irritable bowel syndrome with diarrhea GERD without esophagitis Impaired fasting glucose Acquired hypothyroidism Mixed hyperlipidemia History of traumatic brain injury Actinic keratosis (~1999) Mumps Measles (~1953) Chicken pox (~1951) Tinnitus (~2007) Thyroid nodule (~1980) Skin cancer (~1999) Melanoma (~2019) Surgical History Anesthesia History of varicose vein stripping (~1985) History of thyroidectomy (~1975) History of hysterectomy (~2010) Family History Father Cancer Mother Cancer Brother Cancer Grandfather Diabetes mellitus Grandmother Cancer Social History details: (Juan), four daughters household members: spouse Smoking Status: Never smoker alcohol intake: current Meds Home Medications and Allergies Home Medications Medication Instructions Recorded Confirmed Type clobetasol 0.05 % scalp solution 1 applic topical QAM AND QPM 03/06/23 08/10/23 History gabapentin 100 mg capsule 100 mg PO BID 03/06/23 08/10/23 History simvastatin 40 mg tablet 40 mg PO BEDTIME #90 tabs 06/11/23 08/10/23 Rx levothyroxine 100 mcg tablet 100 mcg PO DAILY #90 tabs 07/26/23 08/10/23 Rx apixaban 5 mg tablet (Eliquis) 5 mg PO BID #180 tabs 08/09/23 08/10/23 Rx Allergies Allergy/AdvReac Type Severity Reaction Status Date / Time bacitracin Allergy Mild Blister Verified 08/09/23 08:34 [From Polysporin(bacitracin base)] neomycin Allergy Mild Blister Verified 08/09/23 08:34 [From Neosporin ([id number])] polymyxin B Allergy Mild Blister Verified 08/09/23 08:34 [From Polysporin(bacitracin base)] Review of Systems Review of Systems Narrative: A 12 point review of system is negative unless otherwise stated in the history of present illness Exam Vital Signs (past 8 hours): - 08/09/23 18:43 08/09/23 19:24 08/09/23 19:36 Temperature 99 F 99.0 F Pulse Rate 89 88 90 Respiratory Rate 14 14 14 Blood Pressure 137/62 140/64 137/62 Pulse Oximetry 96 Oxygen Delivery Method Nasal Cannula Oxygen Flow Rate 2 08/09/23 20:57 08/09/23 20:59 08/09/23 23:18 Temperature 98.0 F 98 F 98.5 F Pulse Rate 86 86 86 Respiratory Rate 14 14 18 Blood Pressure 143/77 H 146/69 H 156/74 H Pulse Oximetry Oxygen Delivery Method Oxygen Flow Rate 08/09/23 23:33 08/09/23 23:36 08/10/23 00:00 Temperature 97.9 F 97.1 F L Pulse Rate 87 89 Respiratory Rate 18 17 Blood Pressure 143/69 H 139/66 Pulse Oximetry 96 Oxygen Delivery Method Room Air Oxygen Flow Rate 0 08/10/23 01:50 08/10/23 01:54 Temperature 98.5 F 98.5 F Pulse Rate 81 81 Respiratory Rate 18 18 Blood Pressure 139/74 139/74 Pulse Oximetry Oxygen Delivery Method Oxygen Flow Rate Oxygen Delivery Method Room Air Oxygen Flow Rate 0 Narrative Exam Narrative: Patient is awake alert oriented. Able to give a good history. No acute distress Abdomen is soft nontender Objective Labs 08/09/23 22:28 08/09/23 18:09 Labs: Laboratory Results - last 24 hr 08/09/23 08/09/23 08/09/23 18:09 20:21 22:28 WBC 2.1 L RBC 1.37 L Hgb 5.5 L* 6.9 L* Hct 17.1 L* 20.3 L* MCV 124.4 H MCH 40.4 H MCHC 32.5 RDW 17.0 H Plt Count 202 Neut % (Auto) Not Reportable Lymph % (Auto) Not Reportable [place] % (Auto) Not Reportable Eos % (Auto) Not Reportable Baso % (Auto) Not Reportable Lymph # (Auto) Not Reportable [place] # (Auto) Not Reportable Baso # (Auto) Not Reportable Total Counted 100 Seg Neutrophils % 29.0 L Band Neutrophils % 4.0 Lymphocytes % (Manual) 59.0 H Monocytes % (Manual) 7.0 Metamyelocytes % 1.0 H Neutrophils # (Manual) 693 L RBC Morphology See below Macrocytosis 3+ H Percent Retic 1.8 Sodium 138 Potassium 3.4 Chloride 103 Carbon Dioxide 27 BUN 11 Creatinine 0.46 L Estimated GFR > 60 BUN/Creatinine Ratio 23.9 H Glucose 100 Calcium 8.9 Total Bilirubin 0.8 AST 25 ALT 24 Alkaline Phosphatase 154 H Lactate Dehydrogenase 370 H Total Protein 7.9 Albumin 4.2 Globulin 3.7 Albumin/Globulin Ratio 1.1 Vitamin B12 532 Urine Color Yellow Urine Appearance Clear Urine pH 5.5 Ur Specific [place] 1.015 Urine Protein Negative Urine Glucose (UA) Negative Urine Ketones Negative Urine Occult Blood Negative Urine Nitrate Positive H Urine Bilirubin Negative Urine Urobilinogen 0.2 Ur Leukocyte Esterase Negative Urine RBC 0-1/hpf Urine WBC 1-5/hpf Ur Squamous Epith Cells 0-1 /hpf Urine Bacteria None seen Ur Culture Indicated? Specimen cultured Vol Urine Centrifuged 10ml (spun) Blood Type A Positive Antibody Screen Negative Crossmatch See Detail Assessment & Plan Assessment & Plan narrative: 73 years old female with a past medical history of deep vein thrombosis of the right lower extremity on Eliquis, hypothyroidism, neuropathy, recent COVID infection in June 2023 was sent to the emergency room for severe anemia. Patient has had generalized fatigue with shortness of breath on exertion since her COVID infection and was eventually evaluated by her primary physician earlier in the day. Follow-up labs showed significant low hemoglobin with low white counts following which she was advised to go to the emergency room. Denies any chest pain palpitation dizziness or loss of consciousness. Denies any bleeding either in the stool or urine or vaginal bleeding. No recent history of dark tarry stools. No fever episodes in the last week. Denies any blurred vision diplopia headache or focal neurological deficits. Repeat follow-up labs emergency room revealed a hemoglobin of 6.9. CBC earlier in the day had shown a WBC count of 2.1 with a hemoglobin of 5.5 and a platelet count of 202. Lymphocytes are 59% with 29% neutrophils 3+ macrocytosis. Urine analysis is negative for WBC esterase and blood. Patient was admitted for further evaluation 1. Anemia severe in a patient with a recent COVID infection and a history of deep vein thrombosis on Eliquis. Appears to be macrocytic anemia with an MCV of 124.4. The B12 is 532. CT chest shows groundglass nodules in the right lung with the possible left hydronephrosis versus pelvocaliectasis. Check a serum folate and reticulocyte count. Received 2 units of packed RBCs in the emergency room. Transfuse to keep the hemoglobin above 7. Reports colonoscopy routine but 3 years ago that was negative for any malignancy. may eventually need a referral/evaluation by hematology for possible post-COVID bone marrow suppression versus other causes. There is a family history of melanoma/colon cancer/lymphoma/breast cancer 2. History of deep vein thrombosis of the right lower extremity on Eliquis at home. Check venous Doppler of the lower extremity before resuming the home Eliquis given the drop in hemoglobin. Monitor for now 3. Dyslipidemia resume the home statin 4 Hypothyroidism resume the home levothyroxine and check TSH 5. GERD/GI prophylaxis will be with Protonix 6 CT raising concern for left hydronephrosis versus pelvocaliectasis. Denies any abdominal pain or dysuria or hematuria. Trend renal function and follow-up on renal ultrasound 7 recent COVID infection CODE STATUS is full Patient will be admitted under observation status Plan of care discussed with the care team and reviewed with the patient. Patient was evaluated with the help of video communication device remotely. The location of the provider is [facility]. Time spent is 25 minutes
[2023-08-10] MEDS: diphenhydrAMINE 25 MG TABLET PO (02:49)
[2023-08-10 04:00] VITALS: BP 136/65; PULSE 84; RESP 17; TEMP 36.1; O2SAT 95
[2023-08-10 05:03] LABS: Reticulocyte Count, Percent 1.4 % (1.1-2.6)
[2023-08-10 05:05] LABS: INR 1.3 (0.9-1.3); Prothrombin Time 14.8 SECONDS (9.4-12.5)
[2023-08-10 05:08] LABS: PTT Partial Thromboplastin Tim 34 SECONDS (25.1-36.5)
[2023-08-10 05:09] LABS: Magnesium 1.8 mg/dL (1.6-2.3)
[2023-08-10 05:11] LABS: Alanine Aminotransferase 22 IU/L (<35); Albumin 3.8 g/dL (3.5-5.0); Albumin Globulin Ratio 1.2 (1.0-2.8); Alkaline Phosphatase 138 U/L (38-126); Aspartate Aminotransferase 22 IU/L (14-36); BUN Creatinine Ratio 18.4 (6-22); Bilirubin Total 1.1 mg/dL (0.2-1.3); Blood Urea Nitrogen 7 mg/dL (7-17); Calcium 8.5 mg/dL (8.4-10.2); Carbon Dioxide 26 mmol/L (22-32); Chloride 106 mmol/L (98-107); Estimated Glomerular Filt Rate > 60 mL/min (>60); Globulin 3.3 g/dL (1.7-4.1); Glucose 100 mg/dL (80-110); HEMOLYSIS < 15 (0-50); Phosphorous 3.4 mg/dL (2.8-4.1); Potassium 3.3 mmol/L (3.4-5.1); Sodium 139 mmol/L (137-145); Total Protein 7.1 g/dL (6.3-8.2)
[2023-08-10 05:18] LABS: Hematocrit 23.1 % (36-46); Hemoglobin 7.9 g/dL (12.0-16.0); Mean Corpuscular Hemoglobin 34.4 PG (26-34); Mean Corpuscular Volume 101.1 fL (80-100); Platelet Count 162 X10^3/uL (150-400); Red Blood Cell Count 2.29 X10^6/uL (4.0-5.2); Red Cell Distribution Width 30.6 % (11.6-14.8)
[2023-08-10 05:22] LABS: Add Manual Diff / Slide Review YES; White Blood Cell Count 1.8 X10^3/uL (4.5-11.0)
[2023-08-10 06:05] LABS: Anisocytosis 2+; Neutrophils Absolute Manual 504 /uL (3000-5900); Total Cells Counted 50
[2023-08-10 06:07] LABS: Macrocytosis 2+
[2023-08-10] MEDS: LEVOTHYROXINE 100 MCG TABLET PO (06:07)
[2023-08-10] MEDS: PANTOPRAZOLE DR 40 MG TABLET PO (06:07)
--- NOTE | 2023-08-10 07:45 | DI.US.S_ITS ---
PROCEDURE: US PERIPH VENOUS LOW EXTREM BI INDICATIONS: HISTORY OF RIGHT DEEP VEIN THROMBOSIS. HOSPITALIZATION. TECHNIQUE: Real-time imaging, as well as color and pulse Doppler interrogation, were performed of the deep veins of both legs from the inguinal ligament to the popliteal fossa, with documentation of the visualized calf veins. COMPARISON: None. FINDINGS: Right: The common femoral, femoral, popliteal, and the visualized calf veins are normally compressible, and free of intraluminal thrombus. Color and pulse Doppler demonstrate normal phasic intravascular flow. There is normal augmentation response to distal compression maneuver. Left: The common femoral, femoral, popliteal, and the visualized calf veins are normally compressible, and free of intraluminal thrombus. Color and pulse Doppler demonstrate normal phasic intravascular flow. There is normal augmentation response to distal compression maneuver. The great saphenous veins are not well seen. A noncompressible likely superficial vein is seen at the medial ankle on the right. Right popliteal cyst measuring 5.7 x 2.7 cm. IMPRESSION: No deep venous thrombosis is seen on this exam. However, the great saphenous veins, at the common femoral vein junction are not well seen, correlate with any prior history of thrombus or procedure. Suspected superficial venous thrombus at the medial ankle on the right. Right popliteal cyst. Dictated by: Woody Escalante M.D. on 08/10/2023 at 10:06 Approved by: Woody Escalante M.D. on 08/10/2023 at 10:10
--- NOTE | 2023-08-10 07:46 | DI.US.S_ITS ---
PROCEDURE: US RENAL COMPLETE INDICATIONS: FOLLOW UP CT ?LEFT HYDRONEPHROSIS VS PELVIECTASIS TECHNIQUE: Real-time scanning was performed of the kidneys and bladder, with image documentation. COMPARISON: None. FINDINGS: Kidneys: Kidneys are normal in size. Right kidney measures 12.8 cm long; left kidney measures 11.7 cm long. Right renal cortical thickness is 1.1 cm; left renal cortical thickness is 1.0 cm. Renal cortical echotexture is normal. No hydronephrosis or nephrolithiasis. No suspicious solid mass lesions. There are multiple parapelvic cysts and cortical cysts, all of which have an anechoic appearance. Bladder: Pre-void bladder volume is 257 mL. Post-void residual is 0 mL. Pre-void images demonstrate no intraluminal masses or stones. On pre-void images, bilateral ureteral jets are noted with color Doppler interrogation. (Of note, ureteral jets may not be detectable in up to 25% of cases due to insufficient differences in specific gravity between ureteral and bladder urine). Miscellaneous: No free pelvic fluid. IMPRESSION: 1. No hydronephrosis or postvoid residual. Dictated by: Yeny Moody M.D. on 08/10/2023 at 9:18 Approved by: Yeny Moody M.D. on 08/10/2023 at 9:19
[2023-08-10 08:00] VITALS: BP 142/73; PULSE 81; RESP 19; TEMP 36.2; O2SAT 93
[2023-08-10] MEDS: POTASSIUM CHLORIDE 20 MEQ TAB 40 MEQ PO ×2 (08:09→12:42)
--- NOTE | 2023-08-10 08:16 | PM.HP.1 ---
History of Present Illness History of Present Illness Date Patient Seen: 08/10/23 Chief complaint: red blood cell issue, sent by Narrative: From overnight provider: 73 years old female with a past medical history of deep vein thrombosis of the right lower extremity on Eliquis, hypothyroidism, neuropathy, recent COVID infection in June 2023 was sent to the emergency room for severe anemia. Patient has had generalized fatigue with shortness of breath on exertion since her COVID infection and was eventually evaluated by her primary physician earlier in the day. Follow-up labs showed significant low hemoglobin with low white counts following which she was advised to go to the emergency room. Denies any chest pain palpitation dizziness or loss of consciousness. Denies any bleeding either in the stool or urine or vaginal bleeding. No recent history of dark tarry stools. No fever episodes in the last week. Denies any blurred vision diplopia headache or focal neurological deficits. Repeat follow-up labs emergency room revealed a hemoglobin of 6.9. CBC earlier in the day had shown a WBC count of 2.1 with a hemoglobin of 5.5 and a platelet count of 202. Lymphocytes are 59% with 29% neutrophils 3+ macrocytosis. Urine analysis is negative for WBC esterase and blood. Patient was admitted for further evaluation [facility] Medical History Trigger finger, right ring finger Post-COVID syndrome DVT (deep venous thrombosis) Eczematous dermatitis Overweight Osteopenia Family history of melanoma Personal history of malignant melanoma Family history of colon cancer BPPV (benign paroxysmal positional vertigo) Urinary incontinence Chronic insomnia Irritable bowel syndrome with diarrhea GERD without esophagitis Impaired fasting glucose Acquired hypothyroidism Mixed hyperlipidemia History of traumatic brain injury Actinic keratosis (~1999) Mumps Measles (~1953) Chicken pox (~1951) Tinnitus (~2007) Thyroid nodule (~1980) Skin cancer (~1999) Melanoma (~2018) Surgical History Anesthesia History of varicose vein stripping (~1985) History of thyroidectomy (~1975) History of hysterectomy (~2010) Family History Father Cancer Mother Cancer Brother Cancer Grandfather Diabetes mellitus Grandmother Cancer Social History details: (Juan), four daughters household members: spouse Smoking Status: Never smoker alcohol intake: current Meds Home Medications and Allergies Home Medications Medication Instructions Recorded Confirmed Type clobetasol 0.05 % scalp solution 1 applic topical QAM AND QPM 03/06/23 08/10/23 History gabapentin 100 mg capsule 100 mg PO BID 03/06/23 08/10/23 History simvastatin 40 mg tablet 40 mg PO BEDTIME #90 tabs 06/11/23 08/10/23 Rx levothyroxine 100 mcg tablet 100 mcg PO DAILY #90 tabs 07/26/23 08/10/23 Rx apixaban 5 mg tablet (Eliquis) 5 mg PO BID #180 tabs 08/09/23 08/10/23 Rx Allergies Allergy/AdvReac Type Severity Reaction Status Date / Time bacitracin Allergy Mild Blister Verified 08/09/23 08:34 [From Polysporin(bacitracin base)] neomycin Allergy Mild Blister Verified 08/09/23 08:34 [From Neosporin ([id number])] polymyxin B Allergy Mild Blister Verified 08/09/23 08:34 [From Polysporin(bacitracin base)] Review of Systems Review of Systems Narrative: A 12 point review of system is negative unless otherwise stated in the history of present illness Exam Vital Signs (past 8 hours): - 08/10/23 01:50 08/10/23 01:54 08/10/23 04:00 Temperature 98.5 F 98.5 F 97.0 F L Pulse Rate 81 81 84 Respiratory Rate 18 18 17 Blood Pressure 139/74 139/74 136/65 Pulse Oximetry 95 Oxygen Flow Rate 0 Oxygen Delivery Method Room Air Oxygen Flow Rate 0 Narrative Exam Narrative: Patient is awake alert oriented. Able to give a good history. No acute distress Abdomen is soft nontender Objective Labs 08/10/23 04:45 08/10/23 04:45 Labs: Laboratory Results - last 24 hr 08/09/23 08/09/23 08/09/23 18:09 20:21 22:28 WBC 2.1 L RBC 1.37 L Hgb 5.5 L* 6.9 L* Hct 17.1 L* 20.3 L* MCV 124.4 H MCH 40.4 H MCHC 32.5 RDW 17.0 H Plt Count 202 Neut % (Auto) Not Reportable Lymph % (Auto) Not Reportable [place] % (Auto) Not Reportable Eos % (Auto) Not Reportable Baso % (Auto) Not Reportable Lymph # (Auto) Not Reportable [place] # (Auto) Not Reportable Baso # (Auto) Not Reportable Total Counted 100 Seg Neutrophils % 29.0 L Band Neutrophils % 4.0 Lymphocytes % (Manual) 59.0 H Atypical Lymphs % Monocytes % (Manual) 7.0 Metamyelocytes % 1.0 H Neutrophils # (Manual) 693 L RBC Morphology See below Anisocytosis Macrocytosis 3+ H Percent Retic 1.8 PT INR APTT Sodium 138 Potassium 3.4 Chloride 103 Carbon Dioxide 27 BUN 11 Creatinine 0.46 L Estimated GFR > 60 BUN/Creatinine Ratio 23.9 H Glucose 100 Calcium 8.9 Phosphorus Magnesium Total Bilirubin 0.8 AST 25 ALT 24 Alkaline Phosphatase 154 H Lactate Dehydrogenase 370 H Total Protein 7.9 Albumin 4.2 Globulin 3.7 Albumin/Globulin Ratio 1.1 Vitamin B12 532 Urine Color Yellow Urine Appearance Clear Urine pH 5.5 Ur Specific [place] 1.015 Urine Protein Negative Urine Glucose (UA) Negative Urine Ketones Negative Urine Occult Blood Negative Urine Nitrate Positive H Urine Bilirubin Negative Urine Urobilinogen 0.2 Ur Leukocyte Esterase Negative Urine RBC 0-1/hpf Urine WBC 1-5/hpf Ur Squamous Epith Cells 0-1 /hpf Urine Bacteria None seen Ur Culture Indicated? Specimen cultured Vol Urine Centrifuged 10ml (spun) Blood Type A Positive Antibody Screen Negative Crossmatch See Detail 08/10/23 08/10/23 04:25 04:45 WBC 1.8 L* RBC 2.29 L Hgb 7.9 L Hct 23.1 L MCV 101.1 H D MCH 34.4 H MCHC 34.0 RDW 30.6 H Plt Count 162 Neut % (Auto) Not Reportable Lymph % (Auto) Not Reportable [place] % (Auto) Not Reportable Eos % (Auto) Not Reportable Baso % (Auto) Not Reportable Lymph # (Auto) Not Reportable [place] # (Auto) Not Reportable Baso # (Auto) Not Reportable Total Counted 50 Seg Neutrophils % 24.0 L Band Neutrophils % 4.0 Lymphocytes % (Manual) 60.0 H Atypical Lymphs % 4.0 H Monocytes % (Manual) 6.0 Metamyelocytes % 2.0 H Neutrophils # (Manual) 504 L RBC Morphology See below Anisocytosis 2+ H Macrocytosis 2+ H Percent Retic 1.4 PT 14.8 H INR 1.3 APTT 34 Sodium 139 Potassium 3.3 L Chloride 106 Carbon Dioxide 26 BUN 7 Creatinine 0.38 L Estimated GFR > 60 BUN/Creatinine Ratio 18.4 Glucose 100 Calcium 8.5 Phosphorus 3.4 Magnesium 1.8 Total Bilirubin 1.1 AST 22 ALT 22 Alkaline Phosphatase 138 H Lactate Dehydrogenase Total Protein 7.1 Albumin 3.8 Globulin 3.3 Albumin/Globulin Ratio 1.2 Vitamin B12 Urine Color Urine Appearance Urine pH Ur Specific [place] Urine Protein Urine Glucose (UA) Urine Ketones Urine Occult Blood Urine Nitrate Urine Bilirubin Urine Urobilinogen Ur Leukocyte Esterase Urine RBC Urine WBC Ur Squamous Epith Cells Urine Bacteria Ur Culture Indicated? Vol Urine Centrifuged Blood Type Antibody Screen Crossmatch Assessment & Plan Assessment & Plan narrative: 1. Anemia severe in a patient with a recent COVID infection and a history of deep vein thrombosis on Eliquis. Appears to be macrocytic anemia with an MCV of 124.4. The B12 is 532. CT chest shows groundglass nodules in the right lung with the possible left hydronephrosis versus pelvocaliectasis. Check a serum folate and reticulocyte count. Received 2 units of packed RBCs in the emergency room. Transfuse to keep the hemoglobin above 7. Reports colonoscopy routine but 3 years ago that was negative for any malignancy. may eventually need a referral/evaluation by hematology for possible post-COVID bone marrow suppression versus other causes. There is a family history of melanoma/colon cancer/lymphoma/breast cancer 2. History of deep vein thrombosis of the right lower extremity on Eliquis at home. Check venous Doppler of the lower extremity before resuming the home Eliquis given the drop in hemoglobin. Monitor for now 3. Dyslipidemia resume the home statin 4 Hypothyroidism resume the home levothyroxine and check TSH 5. GERD/GI prophylaxis will be with Protonix 6 CT raising concern for left hydronephrosis versus pelvocaliectasis. Denies any abdominal pain or dysuria or hematuria. Trend renal function and follow-up on renal ultrasound 7 recent COVID infection CODE STATUS is full Patient will be admitted under observation status
[2023-08-10 08:29] LABS: C-Reactive Protein Quant 3.4 mg/dL (<1.0)
[2023-08-10 08:30] LABS: Erythrocyte Sedimentation Rate > 140 MM/HR (0-20)
[2023-08-10] MEDS: GABAPENTIN 100 MG CAPSULE PO (08:47)
[2023-08-10 09:10] LABS: Monotest Negative (Negative)
[2023-08-10 09:31] LABS: Folate 6.9 ng/mL (2.76-20.0)
[2023-08-10 09:44] LABS: Ferritin 525 ng/mL (11-264)
--- NOTE | 2023-08-10 11:50 | PM.DS.1 ---
History of Present Illness History of Present Illness Chief complaint: red blood cell issue, sent by Narrative: 73 years old female with a past medical history of deep vein thrombosis of the right lower extremity on Eliquis, hypothyroidism, neuropathy, recent COVID infection in June 2023 was sent to the emergency room for severe anemia. Patient has had generalized fatigue with shortness of breath on exertion since her COVID infection and was eventually evaluated by her primary physician earlier in the day. Follow-up labs showed significant low hemoglobin with low white counts following which she was advised to go to the emergency room. Denies any chest pain palpitation dizziness or loss of consciousness. Denies any bleeding either in the stool or urine or vaginal bleeding. No recent history of dark tarry stools. No fever episodes in the last week. Denies any blurred vision diplopia headache or focal neurological deficits. Repeat follow-up labs emergency room revealed a hemoglobin of 6.9. CBC earlier in the day had shown a WBC count of 2.1 with a hemoglobin of 5.5 and a platelet count of 202. Lymphocytes are 59% with 29% neutrophils 3+ macrocytosis. Urine analysis is negative for WBC esterase and blood. Patient was admitted for further evaluation Discharge Providers Provider Date of admission: 08/10/23 02:00 Discharge Date: 08/10/23 Primary care physician: Grabiel Montoya MD Discharge provider: Sony Jackson DO Summary Hospital Course Discharge Diagnosis: 1. Anemia severe in a patient with a recent COVID infection and a history of deep vein thrombosis on Eliquis. Appears to be macrocytic anemia with an MCV of 124.4. The B12 is [address] chest shows groundglass nodules in the right lung with the possible left hydronephrosis versus pelvocaliectasis. Check a serum folate and reticulocyte count. Received 2 units of packed RBCs Transfuse to keep the hemoglobin above 7. Reports colonoscopy routine but 3 years ago that was negative for any malignancy. may eventually need a referral/evaluation by hematology for possible post-COVID bone marrow suppression versus other causes. There is a family history of melanoma/colon cancer/lymphoma/breast cancer 2. History of deep vein thrombosis of the right lower extremity on Eliquis at home. DVT US in bilateral LE's without DVT but possible superficial medial R ankle clot. 3. Dyslipidemia resume the home statin 4. Hypothyroidism resume the home levothyroxine. TSH normal. 5. GERD/GI prophylaxis will be with Protonix 6. CT raising concern for left hydronephrosis versus pelvocaliectasis. Denies any abdominal pain or dysuria or hematuria. Follow-up renal US without hydronephrosis 7. recent COVID infection. Repeat PCR panel negative. Hospital Course: Admitted for SOB and fatigue. Found to have anemia and leukopenia with Hgb 5.5 and WBC 1.9 and ANC 504. Numerous labs sent for testing including monospot, Rohan, retic count, LDH, iron panel, ferritin, peripheral smear, ANCA, JUMANA, CH50, CRP and ESR. Patient received 2 units of PRBCs and Hgb improved to 7.9. Patient felt alot better. Retic count, monospot, rohan returned normal. CRP only 3.4 but ESR high at >140. LDH 370. Dr. Montoya patient's PCP to follow-up on the rest of labs and possibly refer to hematology. CBC ordered in 1 week for patient to get done before PCP follow-up. Etiology still unclear but most likely diagnosis of exclusion is COVID-related bone marrow suppression. May need to pursue GI workup as patient recently put on eliquis for DVT, however not macrocytic and no melena or hematochezia seen. DVT US done which was negative. Eliquis was resumed. Exam Vital Signs (past 8 hours): - 08/10/23 04:00 08/10/23 07:00 08/10/23 07:00 Temperature 97.0 F L Pulse Rate 84 Respiratory Rate 17 Blood Pressure 136/65 Pulse Oximetry 95 Oxygen Delivery Method Room Air Room Air Oxygen Flow Rate 0 08/10/23 08:00 Temperature 97.2 F L Pulse Rate 81 Respiratory Rate 19 Blood Pressure 142/73 H Pulse Oximetry 93 Oxygen Delivery Method Oxygen Flow Rate 0 Oxygen Delivery Method Room Air Oxygen Flow Rate 0 Narrative Exam Narrative: Patient is awake alert oriented. Able to give a good history. No acute distress Abdomen is soft nontender Objective Labs 08/10/23 04:45 08/10/23 04:45 Labs: Laboratory Results - last 24 hr 08/09/23 08/09/23 08/09/23 18:09 20:21 22:28 WBC 2.1 L RBC 1.37 L Hgb 5.5 L* 6.9 L* Hct 17.1 L* 20.3 L* MCV 124.4 H MCH 40.4 H MCHC 32.5 RDW 17.0 H Plt Count 202 Neut % (Auto) Not Reportable Lymph % (Auto) Not Reportable [place] % (Auto) Not Reportable Eos % (Auto) Not Reportable Baso % (Auto) Not Reportable Lymph # (Auto) Not Reportable [place] # (Auto) Not Reportable Baso # (Auto) Not Reportable Total Counted 100 Seg Neutrophils % 29.0 L Band Neutrophils % 4.0 Lymphocytes % (Manual) 59.0 H Atypical Lymphs % Monocytes % (Manual) 7.0 Metamyelocytes % 1.0 H Neutrophils # (Manual) 693 L RBC Morphology See below Anisocytosis Macrocytosis 3+ H ESR Percent Retic 1.8 PT INR APTT Sodium 138 Potassium 3.4 Chloride 103 Carbon Dioxide 27 BUN 11 Creatinine 0.46 L Estimated GFR > 60 BUN/Creatinine Ratio 23.9 H Glucose 100 Calcium 8.9 Phosphorus Magnesium Ferritin Total Bilirubin 0.8 AST 25 ALT 24 Alkaline Phosphatase 154 H Lactate Dehydrogenase 370 H C-Reactive Protein Total Protein 7.9 Albumin 4.2 Globulin 3.7 Albumin/Globulin Ratio 1.1 Vitamin B12 532 Folate Urine Color Yellow Urine Appearance Clear Urine pH 5.5 Ur Specific [place] 1.015 Urine Protein Negative Urine Glucose (UA) Negative Urine Ketones Negative Urine Occult Blood Negative Urine Nitrate Positive H Urine Bilirubin Negative Urine Urobilinogen 0.2 Ur Leukocyte Esterase Negative Urine RBC 0-1/hpf Urine WBC 1-5/hpf Ur Squamous Epith Cells 0-1 /hpf Urine Bacteria None seen Ur Culture Indicated? Specimen cultured Vol Urine Centrifuged 10ml (spun) Monoscreen Blood Type A Positive Antibody Screen Negative Direct Antiglob Test Crossmatch See Detail 08/10/23 08/10/23 08/10/23 04:25 04:45 08:35 WBC 1.8 L* RBC 2.29 L Hgb 7.9 L Hct 23.1 L MCV 101.1 H D MCH 34.4 H MCHC 34.0 RDW 30.6 H Plt Count 162 Neut % (Auto) Not Reportable Lymph % (Auto) Not Reportable [place] % (Auto) Not Reportable Eos % (Auto) Not Reportable Baso % (Auto) Not Reportable Lymph # (Auto) Not Reportable [place] # (Auto) Not Reportable Baso # (Auto) Not Reportable Total Counted 50 Seg Neutrophils % 24.0 L Band Neutrophils % 4.0 Lymphocytes % (Manual) 60.0 H Atypical Lymphs % 4.0 H Monocytes % (Manual) 6.0 Metamyelocytes % 2.0 H Neutrophils # (Manual) 504 L RBC Morphology See below Anisocytosis 2+ H Macrocytosis 2+ H ESR > 140 H Percent Retic 1.4 PT 14.8 H INR 1.3 APTT 34 Sodium 139 Potassium 3.3 L Chloride 106 Carbon Dioxide 26 BUN 7 Creatinine 0.38 L Estimated GFR > 60 BUN/Creatinine Ratio 18.4 Glucose 100 Calcium 8.5 Phosphorus 3.4 Magnesium 1.8 Ferritin 525 H Total Bilirubin 1.1 AST 22 ALT 22 Alkaline Phosphatase 138 H Lactate Dehydrogenase C-Reactive Protein 3.4 H Total Protein 7.1 Albumin 3.8 Globulin 3.3 Albumin/Globulin Ratio 1.2 Vitamin B12 Folate 6.9 Urine Color Urine Appearance Urine pH Ur Specific [place] Urine Protein Urine Glucose (UA) Urine Ketones Urine Occult Blood Urine Nitrate Urine Bilirubin Urine Urobilinogen Ur Leukocyte Esterase Urine RBC Urine WBC Ur Squamous Epith Cells Urine Bacteria Ur Culture Indicated? Vol Urine Centrifuged Monoscreen Negative Blood Type Antibody Screen Direct Antiglob Test Negative Crossmatch [facility] Medical History Trigger finger, right ring finger Post-COVID syndrome DVT (deep venous thrombosis) Eczematous dermatitis Overweight Osteopenia Family history of melanoma Personal history of malignant melanoma Family history of colon cancer BPPV (benign paroxysmal positional vertigo) Urinary incontinence Chronic insomnia Irritable bowel syndrome with diarrhea GERD without esophagitis Impaired fasting glucose Acquired hypothyroidism Mixed hyperlipidemia History of traumatic brain injury Actinic keratosis (~1999) Mumps Measles (~1953) Chicken pox (~1951) Tinnitus (~2007) Thyroid nodule (~1980) Skin cancer (~1999) Melanoma (~2019) Surgical History Anesthesia History of varicose vein stripping (~1985) History of thyroidectomy (~1975) History of hysterectomy (~2010) Family History Father Cancer Mother Cancer Brother Cancer Grandfather Diabetes mellitus Grandmother Cancer Social History details: (Juan), four daughters household members: spouse Smoking Status: Never smoker alcohol intake: current Discharge Plan Discharge Plan Patient Disposition: Home Provider Discharge Comment: Please get a blood test in 1 week and follow-up with Dr. Montoya to decide next steps for your anemia. He will also follow-up on the labs that are pending. Discharge orders & Medications Prescriptions: Continued simvastatin 40 mg tablet 40 mg PO BEDTIME Qty: 90 3RF levothyroxine 100 mcg tablet 100 mcg PO DAILY Qty: 90 3RF clobetasol 0.05 % solution 1 applic topical QAM AND QPM gabapentin 100 mg capsule 100 mg PO BID Eliquis 5 mg tablet 5 mg PO BID Qty: 180 1RF Follow up/Referrals: Grabiel Montoya MD [Primary Care Provider] - 1 Week (*Appt on with at 11:45am. Labs ordered by Please have labs done before appt. [phone]) Other Ambulatory Orders: Complete Blood Count AUTO DIFF (Urgent) Timeframe: 1 Week Facility: [facility] - Location: Laboratory Ordered By: Sony Jackson Diet/Activity/Treatments Diet: Diet as Tolerated Visit Report/Discharge Packet Stand Alone Forms: Patient Portal/API, Stroke Signs & Symptoms Discharge Data Primary Care Provider: Grabiel Montoya V
[2023-08-10 12:00] VITALS: BP 135/71; PULSE 93; RESP 20; TEMP 36.7; O2SAT 91
[2023-08-10 12:09] LABS: Adenovirus Not Detected (Not Detect); B. parapertussis Not Detected (Not Detecte); Bordetella pertussis Not Detected (Not Detect); Chlamydophila pneumoniae Not Detected (Not Detect); Coronavirus 229E Not Detected (Not Detect); Coronavirus HKU1 Not Detected (Not Detect); Coronavirus NL 63 Not Detected (Not Detect); Coronavirus OC43 Not Detected (Not Detect); Human Metapneumovirus Not Detected (Not Detect); Human Rhinovirus/Enterovirus Not Detected (Not Detect); Influenza A Not Detected (Not Detect); Influenza B Not Detected (Not Detect); Mycoplasma pneumoniae Not Detected (Not Detect); Parainfluenza Virus 1 Not Detected (Not Detect); Parainfluenza Virus 2 Not Detected (Not Detect); Parainfluenza Virus 3 Not Detected (Not Detect); Parainfluenza Virus 4 Not Detected (Not Detect); Respiratory Syncytial Virus Not Detected (Not Detect); SARS- CoV-2 Not Detected (Not Detecte)
--- NOTE | 2023-08-10 12:10 | CM.DANOTE ---
Initial DCP Assessment Note Reviewed EMR and team rounds for pt's medical status and initial anticipated d/c needs. Met at bedside with pt and her dtr to introduce self and role. Pt states that she's feeling much better today since having the blood transfusions. Plan is to d/c back home today, spouse will transport, and she has 3-daughters that are arriving from out of town to assist w/her care and household needs. No anticipated d/c needs identified at this time. Payor: [employer] Medicare Adv PCP: Dr. Montoya Pt is a 73 year-old F who presented to the ED last evening after seeing her PCP and having labs that showed low hemoglobin and low white blood count. She states that she's been progressively more SOB and weak since she had Covid at [facility]. Pt was given 2-units of blood in the ED with little improvement, so was admitted for further transfusion and monitoring. Discharge Planning/Care Management CM Discharge Assessment Start: 08/10/23 11:55 Freq: Status: Active Protocol: Document 08/10/23 11:55 DPL (Rec: 08/10/23 12:10 DPL [id number]) Discharge Planning Assessment Assigned Counter Pocket Trimmer JAVON Mcallister Advance Directives? Yes Advance Directives on File No History Provided By Patient,Medical Record Expected Length of Stay 2 Has Patient been admitted in last 30 No days? Prior Living Arrangements House Household Members spouse Type of transporation used prior to Drives own vehicle admit Independent with ADL's Yes Is patient alert and oriented? Yes Caregiver for Another No Comment No d/c needs are identified at this time. Barriers to Discharge No Discharge Plan Home Transportation Arrangement Spouse Referrals Initiated None needed Whiteboard Updated in Patient Room with Yes name and ext. # of Counter Pocket Trimmer Review Status In Process Please Provide Date Initial DC 08/10/23 Assessment Was Performed
--- NOTE | 2023-08-10 12:38 | PC.NURSE ---
pt for discharge; telemetry and iv's removed; Dr Jackson spoke w/ pt and at length; written and verbal discharge instructions given and pt and verbalized understanding; will discharge to private vehicle via w/c; all belongings gathered to be sent w/ pt
[2023-08-15 03:37] LABS: Complement Total CH50 > 60 U/mL (>41)
[2023-08-15 12:52] LABS: Antimyeloperoxidase Antibodies <0.2 units (0.0-0.9); Antiproteinase 3 Antibodies <0.2 units (0.0-0.9); Cytoplasmic C-ANCA <1:20 titer (Neg:<1:20); Perinuclear P-ANCA <1:20 titer (Neg:<1:20)
[2023-08-15 21:49] LABS: ANA Screen, IFA Negative (.)
== END 2023-08-10 13:09 | disposition home or self-care (01) | DRG 951 ==
LOC: ED 18:59 → AC 22:59
PROVIDERS: Student in an Organized Health Care Education/Training Program; Admitting Provider Internal Medicine; Emergency Provider Emergency Medicine; PCP Internal Medicine; Visit Provider Internal Medicine
DX: U09.9 Post COVID-19 condition, unspecified (principal); I82.409 Acute embolism and thrombosis of unspecified deep veins of unspecified lower extremity; D75.89 Other specified diseases of blood and blood-forming organs; D53.9 Nutritional anemia, unspecified; E78.5 Hyperlipidemia, unspecified; E03.9 Hypothyroidism, unspecified; K21.9 Gastro-esophageal reflux disease without esophagitis; Z86.718 Personal history of other venous thrombosis and embolism; Z79.01 Long term (current) use of anticoagulants; E78.2 Mixed hyperlipidemia; R73.01 Impaired fasting glucose
CPT/HCPCS: 36415; 36430; 71046; 71275; 76770; 80048; 80053; 80061; 81001; 81240; 82607; 82728; 82746; 83615; 83735; 84100; 84443; 84450; 85007; 85014; 85018; 85025; 85027; 85045; 85610; 85651; 85730; 86038; 86140; 86162; 86256; 86318; 86850; 86880; 86900; 86901; 87077; 87086; 87186; 87633; 93005; 93970; 99285; 99291; P9016

== ENCOUNTER → 2023-08-15 09:05 | Outpatient (CLI) | payer OTHER, SELFPAY ==
[2023-08-09 23:33] VITALS: BMI 25.6
[2023-08-15 09:45] LABS: Hematocrit 24.8 % (36-46); Hemoglobin 8.4 g/dL (12.0-16.0); Mean Corpuscular HGB Conc 33.8 % (30-36); Mean Corpuscular Hemoglobin 35.5 PG (26-34); Mean Corpuscular Volume 105.1 fL (80-100); Platelet Count 187 X10^3/uL (150-400); Red Blood Cell Count 2.36 X10^6/uL (4.0-5.2)
[2023-08-15 10:07] LABS: Add Manual Diff / Slide Review YES; White Blood Cell Count 1.6 X10^3/uL (4.5-11.0)
[2023-08-15 10:23] LABS: Neutrophils Absolute Manual 576 /uL (3000-5900); Total Cells Counted 50
[2023-08-15 10:24] LABS: Anisocytosis 2+; Macrocytosis 2+
== END ==
PROVIDERS: PCP Internal Medicine; Referring Provider Student in an Organized Health Care Education/Training Program; Visit Provider Student in an Organized Health Care Education/Training Program
DX: D72.819 Decreased white blood cell count, unspecified (principal); D64.9 Anemia, unspecified
CPT/HCPCS: 36415; 85007; 85025

== ENCOUNTER → 2023-08-16 12:25 | Outpatient (CLI) | payer OTHER, SELFPAY ==
[2023-08-09 23:33] VITALS: BMI 25.6
[2023-08-20 16:38] LABS: Albumin 3.3 g/dL (2.9-4.4); Alpha-1-Globulin 0.2 g/dL (0.0-0.4); Globulin Total 3.2 g/dL (2.2-3.9); Immunoglobulin A, Serum 226 mg/dL (64-422); Immunoglobulin G,Serum 1045 mg/dL (586-1602); Immunoglobulin M, Serum 48 mg/dL (26-217); Protein, Total 6.5 g/dL (6.0-8.5)
[2023-08-21 13:10] LABS: Alpha-1 Globulin, Ur 6.5 % (.); Gamma Globulin, Ur 14.7 % (.); M-Spike % Not Observed % (Not Observed); Urine Total Protein 7.9 mg/dL (Not Estab.)
[2023-08-22 14:25] LABS: Beta-2-Microglobulin 1.4 mg/L (0.6-2.4)
== END ==
PROVIDERS: PCP Internal Medicine; Referring Provider Internal Medicine; Visit Provider Internal Medicine
DX: D72.819 Decreased white blood cell count, unspecified (principal); D64.9 Anemia, unspecified
CPT/HCPCS: 36415; 82232; 82784; 84155; 84156; 84165; 84166; 86334; 86335

== ENCOUNTER 2023-08-24 12:26 | Inpatient (IN) | payer OTHER, SELFPAY ==
[2023-08-09 23:33] VITALS: BMI 25.6
[2023-08-24] VITALS (17 sets, daily range): BP systolic 113–155; BP diastolic 52–71; PULSE 88–114; RESP 17–27; TEMP 37.2–38.4; O2SAT 86–97; BMI 25.5; BMI 25.4
--- NOTE | 2023-08-24 12:44 | DI.RAD.S_ITS ---
PROCEDURE: XR CHEST 1V INDICATIONS: suspected sepsis TECHNIQUE: One view of the chest was acquired. COMPARISON: [facility], CR, XR CHEST 2V, 08/09/2023, 15:45. [facility], CR, XR CHEST 2V, 05/02/2022, 13:34. FINDINGS: Surgical changes and devices: None. Lungs and pleura: Lungs are abnormal with patchy bilateral left greater than right pneumonia. No pleural effusions or pneumothorax. Mediastinum: Mediastinal contours appear normal. Heart size is normal. Bones and chest wall: No suspicious bony lesions. Overlying soft tissues appear unremarkable. IMPRESSION: Patchy bilateral left greater than right pneumonia without visualized pleural effusion. Dictated by: Albert Yip M.D. on 08/24/2023 at 13:45 Approved by: Albert Yip M.D. on 08/24/2023 at 13:46
--- NOTE | 2023-08-24 12:56 | ED.WEAKNESS ---
HPI - Weakness General Chief complaint: Weakness Stated complaint: LETHARGIC, WEAKNESS Time Seen by Provider: 08/24/23 12:47 Source: patient Mode of arrival: Wheelchair History of Present Illness HPI Narrative: Patient here with . Patient states has fever dry cough weakness fatigue for the past 2 or 3 days. Patient discharged from this hospital August 15 for DVT leukopenia. Patient is just starting to see Hematology Oncology with [facility] for abnormal blood work. No diagnosis. Patient is trying to get bone marrow biopsy with [facility]. Patient is on Eliquis for DVT. Has had nausea and vomiting as well. Related Data Home Medications Medication Instructions Recorded Confirmed clobetasol 0.05 % scalp solution 1 applic topical QAM AND QPM 03/06/23 09/03/23 amoxicillin 875 mg-potassium 1 tab PO BID 09/03/23 09/03/23 clavulanate 125 mg tablet apixaban 5 mg tablet (Eliquis) 5 mg PO BID 09/03/23 09/03/23 doxycycline hyclate 100 mg tablet 100 mg PO BID 09/03/23 09/03/23 Previous Rx's Medication Instructions Recorded simvastatin 40 mg tablet 40 mg PO BEDTIME #90 tabs 06/11/23 levothyroxine 100 mcg tablet 100 mcg PO DAILY #90 tabs 07/26/23 gabapentin 100 mg capsule 100 mg PO BID #180 caps 08/21/23 Allergies Allergy/AdvReac Type Severity Reaction Status Date / Time bacitracin Allergy Mild Blister Verified 09/03/23 07:50 [From Polysporin(bacitracin base)] neomycin Allergy Mild Blister Verified 09/03/23 07:50 [From Neosporin ([id number])] polymyxin B Allergy Mild Blister Verified 09/03/23 07:50 [From Polysporin(bacitracin base)] Review of Systems Review of Systems Narrative: GENERAL: Positive chills, fatigue, malaise, fever, sweats. HEENT: negative sinus pain, ear pain, sore throat RESPIRATORY: negative dyspnea, positive cough CARDIOVASCULAR: negative chest pain, palpitations GASTROINTESTINAL: negative nausea, vomiting, abdominal pain : negative dysuria, frequency, hematuria MUSCULOSKELETAL: negative muscle or bony pain SKIN: negative rash, skin lesions NEUROLOGIC: negative weakness, numbness ROS Unobtainable: All systems reviewed & are unremarkable except as noted in HPI and below Patient History Medical History (Updated 09/03/23 @ 10:52 by Grabiel Montoya MD) Acute hypoxic respiratory failure Acute myelogenous leukemia Trigger finger, right ring finger Post-COVID syndrome DVT (deep venous thrombosis) Eczematous dermatitis Overweight Osteopenia Family history of melanoma Personal history of malignant melanoma Family history of colon cancer BPPV (benign paroxysmal positional vertigo) Urinary incontinence Chronic insomnia Irritable bowel syndrome with diarrhea GERD without esophagitis Impaired fasting glucose Acquired hypothyroidism Mixed hyperlipidemia History of traumatic brain injury Actinic keratosis (~1999) Mumps Measles (~1953) Chicken pox (~1951) Tinnitus (~2007) Thyroid nodule (~1980) Skin cancer (~1999) Melanoma (~2018) Surgical History Anesthesia History of varicose vein stripping (~1985) History of thyroidectomy (~1975) History of hysterectomy (~2010) Family History Father Cancer Mother Cancer Brother Cancer Grandfather Diabetes mellitus Grandmother Cancer Social History details: (Juan), four daughters household members: spouse Smoking Status: Never smoker alcohol intake: current Smoking Status: Never smoker alcohol intake frequency: 0-2 drinks per day Substance Use Type: does not use Exam Narrative Exam Narrative: GENERAL: in no distress, not toxic not dyspneic HEAD: Normocephalic. EYES: Pupils equal round ENT: Mucous membranes moist. NECK: Trachea midline. CARDIOVASCULAR: Tachycardia Regular rate and rhythm RESPIRATORY: Clear to auscultation. Breath sounds equal bilaterally. No wheezes, rales, or rhonchi. GASTROINTESTINAL: Abdomen soft, non-tender EXTREMITIES: No gross deformities. BACK: No flank tenderness. NEURO: AOx4. SKIN: Warm and dry PSYCH: Not anxious, is cooperative Initial Vital Signs Initial Vital Signs: Vital Signs Temperature 100.7 F H 08/24/23 12:41 Pulse Rate 114 H 08/24/23 12:41 Respiratory Rate 22 08/24/23 12:41 Blood Pressure 155/70 H 08/24/23 12:41 Pulse Oximetry 86 L 08/24/23 12:41 Oxygen Delivery Method Room Air 08/24/23 12:41 Course Orders Ordered: Discontinued Medications Acetaminophen (Acetaminophen 325 Mg Tablet) 975 mg PO NOW ONE Stop: 08/24/23 12:55 Last Admin: 08/24/23 13:11 Dose: 975 mg Documented By: DARBY Acetaminophen (Acetaminophen 325 Mg Tablet) 650 mg PO Q6H PRN PRN Reason: Fever/Mild Pain (1-3) Last Admin: 08/26/23 23:47 Dose: 650 mg Documented By: Admin: 08/26/23 15:36 Dose: 650 mg Documented By: Admin: 08/26/23 03:45 Dose: 650 mg Documented By: Admin: 08/25/23 19:48 Dose: 650 mg Documented By: Admin: 08/25/23 08:25 Dose: 650 mg Documented By: Admin: 08/24/23 20:15 Dose: 650 mg Documented By: SR Al Hydrox/Mg Hydrox/Simethicone (Mag Hydrox/Alum/Simeth 30 Ml Udc) 30 ml PO Q6HR PRN PRN Reason: Dyspepsia Atorvastatin Calcium (Atorvastatin 20 Mg Tablet) 20 mg PO BEDTIME COY Last Admin: 08/26/23 20:49 Dose: 20 mg Documented By: Admin: 08/25/23 20:52 Dose: 20 mg Documented By: Admin: 08/24/23 20:15 Dose: 20 mg Documented By: SR Benzocaine (Benzocaine/Menthol 1 Thor Pkt) 1 each PO Q1HR PRN PRN Reason: Cough Last Admin: 08/25/23 21:21 Dose: 1 each Documented By: FELIX Benzonatate (Benzonatate 100 Mg Capsule) 100 mg PO TID PRN PRN Reason: Cough Last Admin: 08/26/23 05:17 Dose: 100 mg Documented By: Admin: 08/25/23 09:21 Dose: 100 mg Documented By: SANTANA Diphenhydramine HCl (Diphenhydramine 25 Mg Tablet) 25 mg PO BEDTIME PRN PRN Reason: Insomnia Last Admin: 08/25/23 21:21 Dose: 25 mg Documented By: Admin: 08/24/23 21:08 Dose: 25 mg Documented By: SR Diphenhydramine HCl (Diphenhydramine 25 Mg Tablet) 50 mg PO BEDTIME PRN PRN Reason: Insomnia Last Admin: 08/26/23 20:49 Dose: 50 mg Documented By: Admin: 08/25/23 23:13 Dose: 25 mg Documented By: FELIX Diphenoxylate HCl/Atropine (Diphenoxylate/Atrop 2.5/0.025 Tablet) 1 each PO PRN PRN PRN Reason: Diarrhea Last Admin: 08/27/23 10:19 Dose: 1 each Documented By: RIN Gabapentin (Gabapentin 100 Mg Capsule) 100 mg PO BID [facility] Last Admin: 08/27/23 10:19 Dose: 100 mg Documented By: Admin: 08/26/23 20:49 Dose: 100 mg Documented By: Admin: 08/26/23 10:24 Dose: 100 mg Documented By: Admin: 08/25/23 20:53 Dose: 100 mg Documented By: Admin: 08/25/23 08:25 Dose: 100 mg Documented By: Admin: 08/24/23 20:15 Dose: 100 mg Documented By: SR Sodium Chloride (Normal Saline 0.9%) 1,000 mls @ 1,000 mls/hr IV BOLUS ONE Stop: 08/24/23 13:43 Last Infusion: 08/24/23 14:42 Dose: Infused Documented By: Admin: 08/24/23 13:11 Dose: 1,000 mls/hr Documented By: SPF Cefepime HCl 2 gm/ Sodium (Chloride) 100 mls @ 200 mls/hr IV NOW ONE Stop: 08/24/23 14:22 Last Infusion: 08/24/23 15:29 Dose: Infused Documented By: Admin: 08/24/23 14:54 Dose: 200 mls/hr Documented By: SPF Vancomycin HCl (Vancomycin) 1,250 mg in 250 mls @ 250 mls/hr IV NOW ONE Stop: 08/24/23 15:44 Last Admin: 08/24/23 16:51 Dose: 250 mls/hr Documented By: SANTANA Dextrose/Sodium Chloride (Dextrose 5%-0.9% Ns) 1,000 mls @ 50 mls/hr IV CONT COY Last Admin: 08/26/23 17:07 Dose: 50 mls/hr Documented By: Infusion: 08/26/23 17:07 Dose: Infused Documented By: Admin: 08/25/23 22:38 Dose: 50 mls/hr Documented By: Infusion: 08/25/23 22:38 Dose: Infused Documented By: Admin: 08/25/23 05:57 Dose: 50 mls/hr Documented By: Infusion: 08/25/23 05:57 Dose: Infused Documented By: Admin: 08/24/23 16:51 Dose: 50 mls/hr Documented By: SANTANA Cefepime HCl 2 gm/ Sodium (Chloride) 100 mls @ 200 mls/hr IV Q12H [facility] Last Infusion: 08/27/23 05:22 Dose: Infused Documented By: Admin: 08/27/23 03:22 Dose: 200 mls/hr Documented By: Infusion: 08/26/23 21:51 Dose: Infused Documented By: Admin: 08/26/23 15:33 Dose: 200 mls/hr Documented By: Infusion: 08/26/23 03:41 Dose: Infused Documented By: Admin: 08/26/23 03:00 Dose: 200 mls/hr Documented By: Infusion: 08/25/23 16:41 Dose: Infused Documented By: Admin: 08/25/23 15:51 Dose: 200 mls/hr Documented By: Infusion: 08/25/23 02:47 Dose: Infused Documented By: Admin: 08/25/23 02:17 Dose: 200 mls/hr Documented By: Vancomycin HCl (Vancomycin) 750 mg in 150 mls @ 150 mls/hr IV Q8H [facility] Last Admin: 08/26/23 09:55 Dose: 150 mls/hr Documented By: Infusion: 08/26/23 02:18 Dose: Infused Documented By: Admin: 08/26/23 00:45 Dose: 150 mls/hr Documented By: Infusion: 08/25/23 20:55 Dose: Infused Documented By: Admin: 08/25/23 17:28 Dose: 150 mls/hr Documented By: Infusion: 08/25/23 09:25 Dose: Infused Documented By: Admin: 08/25/23 08:25 Dose: 150 mls/hr Documented By: Infusion: 08/25/23 01:38 Dose: Infused Documented By: Admin: 08/25/23 00:38 Dose: 150 mls/hr Documented By: SR Magnesium Sulfate (Magnesium Sulfate) 2 gm in 50 mls @ 25 mls/hr IV NOW ONE Stop: 08/25/23 11:39 Last Infusion: 08/25/23 17:51 Dose: Infused Documented By: SANTANA Co-signed By: JOEY Admin: 08/25/23 15:51 Dose: 25 mls/hr Documented By: ARTHURW Co-signed By: KINGS Vancomycin HCl (Vancomycin) 1,250 mg in 250 mls @ 250 mls/hr IV Q8H [facility] Last Admin: 08/27/23 10:18 Dose: 250 mls/hr Documented By: Infusion: 08/27/23 03:24 Dose: Infused Documented By: Admin: 08/26/23 23:48 Dose: 250 mls/hr Documented By: Infusion: 08/26/23 21:51 Dose: Infused Documented By: Admin: 08/26/23 17:11 Dose: 250 mls/hr Documented By: MAYITO Levothyroxine Sodium (Levothyroxine 100 Mcg Tablet) 100 mcg PO DAILY@0600 [facility] Last Admin: 08/27/23 05:21 Dose: 100 mcg Documented By: Admin: 08/26/23 05:17 Dose: 100 mcg Documented By: Admin: 08/25/23 05:53 Dose: 100 mcg Documented By: Naloxone HCl (Naloxone 0.4 Mg/Ml Vial) 0.2 mg IV Q2MIN PRN PRN Reason: Opiate Reversal Ondansetron HCl (Ondansetron 4 Mg/2 Ml Inj) 4 mg IV NOW PRN PRN Reason: Nausea And Vomiting Last Admin: 08/24/23 13:11 Dose: 4 mg Documented By: SPF Ondansetron HCl (Ondansetron 4 Mg Odt) 4 mg SL NOW PRN PRN Reason: Nausea And Vomiting Ondansetron HCl (Ondansetron 4 Mg/2 Ml Inj) 4 mg IV Q4HR PRN PRN Reason: Nausea And Vomiting Last Admin: 08/25/23 19:42 Dose: 4 mg Documented By: Admin: 08/25/23 15:51 Dose: 4 mg Documented By: SANTANA Potassium Chloride (Potassium Chloride 20 Meq Tab) 40 meq PO NOW ONE Stop: 08/24/23 17:13 Last Admin: 08/24/23 17:38 Dose: 40 meq Documented By: SANTANA Potassium Chloride (Potassium Chloride 20 Meq Tab) 40 meq PO TIDWM [facility] Stop: 08/25/23 17:01 Last Admin: 08/25/23 17:29 Dose: 40 meq Documented By: Admin: 08/25/23 11:41 Dose: 40 meq Documented By: SANTANA Potassium Chloride (Potassium Chloride 20 Meq Tab) 40 meq PO NOW ONE Stop: 08/26/23 14:33 Last Admin: 08/26/23 15:34 Dose: 40 meq Documented By: MAYITO Potassium Chloride (Potassium Chloride 20 Meq Tab) 40 meq PO NOW ONE Stop: 08/27/23 07:31 Last Admin: 08/27/23 10:18 Dose: 40 meq Documented By: RIN Sodium Chloride (Sodium Chloride 0.9% Flush) 10 ml IV PRN PRN PRN Reason: Flush Sodium Chloride (Sodium Chloride 0.9% Flush) 10 ml IV BID [facility] Last Admin: 08/27/23 10:19 Dose: 10 ml Documented By: Admin: 08/26/23 23:03 Dose: 10 ml Documented By: Admin: 08/26/23 10:24 Dose: Not Given Documented By: Admin: 08/25/23 19:48 Dose: 10 ml Documented By: FELIX Vancomycin HCl (Vancomycin Trough) 1 request [facility]30 ONE Stop: 08/25/23 16:31 Last Admin: 08/25/23 17:27 Dose: Not Given Documented By: SANTANA Vancomycin HCl (Vancomycin Peak) 1 request MIS 1900 ONE Stop: 08/25/23 19:01 Last Admin: 08/25/23 19:42 Dose: 1 request Documented By: FELIX Vancomycin HCl (Vancomycin Trough) 1 request MIS 1630 [facility] Stop: 08/27/23 16:31 Vancomycin HCl (Vancomycin Peak) 1 request MIS 190 [facility] Stop: 08/27/23 19:01 Vital Signs Vital signs: Vital Signs - 8 hr 08/24/23 12:41 08/24/23 12:46 08/24/23 13:00 Temperature 100.7 F H Pulse Rate 114 H 109 H Respiratory Rate 22 20 Blood Pressure 155/70 H 147/69 H Pulse Oximetry 86 L 91 Oxygen Delivery Method Room Air Oxygen Flow Rate 08/24/23 13:00 08/24/23 13:11 08/24/23 13:23 Temperature 100.7 F H Pulse Rate 109 H Respiratory Rate 25 H 22 Blood Pressure Pulse Oximetry 89 L 94 Oxygen Delivery Method Nasal Cannula Oxygen Flow Rate 3 08/24/23 13:30 08/24/23 13:30 08/24/23 14:00 Temperature 101.0 F H Pulse Rate 105 H Respiratory Rate 26 H Blood Pressure 151/71 H Pulse Oximetry 92 Oxygen Delivery Method Oxygen Flow Rate MDM - Weakness Lab Data 08/27/23 05:18 08/27/23 05:18 Labs: Lab Results 08/24/23 08/24/23 Range/Units 12:50 13:11 WBC 3.5 L (4.5-11.0) X10^3/uL RBC 2.24 L (4.0-5.2) X10^6/uL Hgb 7.8 L (12.0-16.0) g/dL Hct 23.3 L (36-46) % MCV 103.9 H (80-100) fL MCH 34.8 H (26-34) PG MCHC 33.5 (30-36) % RDW 29.1 H (11.6-14.8) % Plt Count 193 (150-400) X10^3/uL Neut % (Auto) Not Reportable Lymph % (Auto) Not Reportable [place] % (Auto) Not Reportable Eos % (Auto) Not Reportable Baso % (Auto) Not Reportable Lymph # (Auto) Not Reportable [place] # (Auto) Not Reportable Baso # (Auto) Not Reportable Total Counted 100 Seg Neutrophils % 49.0 (38-70) % Band Neutrophils % 12.0 H (3-7) % Lymphocytes % (Manual) 22.0 L (25-45) % Monocytes % (Manual) 15.0 H (2-11) % Metamyelocytes % 2.0 H (-0) % Neutrophils # (Manual) 2135 L (0860-4094) /uL RBC Morphology See below Anisocytosis 2+ H Macrocytosis 1+ H PT 20.5 H (9.4-12.5) SECONDS INR 1.8 H (0.9-1.3) APTT 36 (25.1-36.5) SECONDS Sodium 135 L (137-145) mmol/L Potassium 2.8 L (3.4-5.1) mmol/L Chloride 98 (98-107) mmol/L Carbon Dioxide 28 (22-32) mmol/L BUN 7 (7-17) mg/dL Creatinine 0.45 L (0.52-1.04) mg/dL Estimated GFR > 60 (>60) mL/min BUN/Creatinine Ratio 15.6 (6-22) Glucose 129 H (80-110) mg/dL Lactate 0.8 (0.7-2.1) mmol/L Calcium 8.6 (8.4-10.2) mg/dL Total Bilirubin 1.5 H (0.2-1.3) mg/dL AST 71 H (14-36) IU/L ALT 82 H (<35) IU/L Alkaline Phosphatase 246 H (38-126) U/L Total Protein 7.9 (6.3-8.2) g/dL Albumin 4.1 (3.5-5.0) g/dL Globulin 3.8 (1.7-4.1) g/dL Albumin/Globulin Ratio 1.1 (1.0-2.8) Lipase 36 (23-300) U/L Procalcitonin 1.65 H (<0.5) ng/mL Chlamy pneumoniae PCR Not detected (Not Detect) Adenovirus (PCR) Not detected (Not Detect) B.parapertussis DNA PCR Not detected (Not Detecte) Coronavirus OC43 (PCR) Not detected (Not Detect) Coronavirus HKU1 (PCR) Not detected (Not Detect) Coronavirus 229E (PCR) Not detected (Not Detect) SARS-CoV-2 (PCR) Not detected (Not Detecte) Coronavirus NL63 (PCR) Not detected (Not Detect) Human Metapneumovir PCR Not detected (Not Detect) Influenza Type A (PCR) Not detected (Not Detect) Influenza Type B (PCR) Not detected (Not Detect) M. pneumoniae (PCR) Not detected (Not Detect) Parainfluenza 1 (PCR) Not detected (Not Detect) Parainfluenza 2 (PCR) Not detected (Not Detect) Parainfluenza 3 (PCR) Not detected (Not Detect) Parainfluenza 4 (PCR) Not detected (Not Detect) RSV (PCR) Not detected (Not Detect) Entero/Rhino (PCR) Not detected (Not Detect) Blood Type A Positive Antibody Screen Negative Crossmatch See Detail Imaging Data Chest x-ray: Radiologist Impression: [facility] [id number] [place] [id number] XRay Report Signed Patient: Brittany Bryant MR#: [id number] : 1950 Acct:[id number] Age/Sex: 73 / F Date of Service: 08/24/23 Loc: ED Accession Number: [id number] Procedure: XR chest 1V Ordering Provider: Shahab Sin MD PROCEDURE: XR CHEST 1V INDICATIONS: suspected sepsis TECHNIQUE: One view of the chest was acquired. COMPARISON: [facility], CR, XR CHEST 2V, 08/09/2023, 15:45. [facility], CR, XR CHEST 2V, 05/02/2022, 13:34. FINDINGS: Surgical changes and devices: None. Lungs and pleura: Lungs are abnormal with patchy bilateral left greater than right pneumonia. No pleural effusions or pneumothorax. Mediastinum: Mediastinal contours appear normal. Heart size is normal. Bones and chest wall: No suspicious bony lesions. Overlying soft tissues appear unremarkable. IMPRESSION: Patchy bilateral left greater than right pneumonia without visualized pleural effusion. Dictated by: Albert Yip M.D. on 08/24/2023 at 13:45 Approved by: Albert Yip M.D. on 08/24/2023 at 13:46 [facility] Narrative Medical decision making narrative: Patient here with . Patient states has fever dry cough weakness fatigue for the past 2 or 3 days. Patient discharged from this hospital August 15 for DVT leukopenia. Patient is just starting to see Hematology Oncology with [facility] for abnormal blood work. No diagnosis. Patient is trying to get bone marrow biopsy with [facility]. Patient is on Eliquis for DVT. Has had nausea and vomiting as well. After history and exam CBC CMP lactic acid procalcitonin respiratory panel urinalysis chest x-ray normal saline Tylenol [facility] CC: Fever weakness Complicating co-morbidities: History of leukopenia Data collected from: Patient and Medical records reviewed: Recent discharge from this hospital Differential considered: Includes but not limited to sepsis pneumonia COVID influenza RSV Exam documented above, pertinent findings include: Fever Lab Test results independently reviewed as above. Pertinent findings: WBC 3.5 hemoglobin 7.8 platelets 193 bands at 12.0 INR 1.8 sodium 135 potassium 2.8 glucose 129 AST 71 ALT 82 procalcitonin 1.65 lactic acid 0.8 Respiratory panel negative Independently reviewed EKG sinus tachycardia rate [address] elevation or depression. There is prolonged QT at 526 Imaging studies independently reviewed: Chest x-ray patchy bilateral [id number]-right pneumonia Consultations: 2:[address] Moffett, hospitalist, who will admit patient. He would like vancomycin and cefepime Treatments: Tylenol normal saline vancomycin cefepime Re-evaluations: Updated patient and family results and understand need for admission Discussion: Appropriate for admission for IV antibiotics for pneumonia. Patient agrees and understands. Patient was just admitted here for DVT. Diagnosis: Pneumonia Discharge Plan Departure Patient Disposition: Admitted As Inpatient Clinical Impression: Pneumonia Qualifiers: Pneumonia type: due to unspecified organism Laterality: bilateral Lung location: unspecified part of lung Qualified Code(s): J18.9 - Pneumonia, unspecified organism Leukocytopenia, unspecified Qualifiers: Leukopenia type: neutropenia Neutropenia type: unspecified Qualified Code(s): D70.9 - Neutropenia, unspecified Admit Date/Time: 08/24/23 14:17 Admit Provider: Kwan Moffett
[2023-08-24] MEDS: ACETAMINOPHEN 325 MG TABLET 975 MG PO (13:11)
[2023-08-24] MEDS: SODIUM CHLORIDE 0.9% 1,000 ML 1000 ML IV (13:11)
[2023-08-24] MEDS: ONDANSETRON 4 MG/2 ML INJ IV (13:11)
[2023-08-24 13:18] LABS: Add Manual Diff / Slide Review YES; Hematocrit 23.3 % (36-46); Hemoglobin 7.8 g/dL (12.0-16.0); Mean Corpuscular HGB Conc 33.5 % (30-36); Mean Corpuscular Hemoglobin 34.8 PG (26-34); Mean Corpuscular Volume 103.9 fL (80-100); Platelet Count 193 X10^3/uL (150-400); Red Blood Cell Count 2.24 X10^6/uL (4.0-5.2); Red Cell Distribution Width 29.1 % (11.6-14.8); White Blood Cell Count 3.5 X10^3/uL (4.5-11.0)
[2023-08-24 13:21] LABS: INR 1.8 (0.9-1.3); Prothrombin Time 20.5 SECONDS (9.4-12.5)
[2023-08-24 13:24] LABS: PTT Partial Thromboplastin Tim 36 SECONDS (25.1-36.5)
[2023-08-24 13:25] LABS: Lactate (Lactic Acid) 0.8 mmol/L (0.7-2.1)
[2023-08-24 13:27] LABS: Alanine Aminotransferase 82 IU/L (<35); Albumin 4.1 g/dL (3.5-5.0); Albumin Globulin Ratio 1.1 (1.0-2.8); Alkaline Phosphatase 246 U/L (38-126); Aspartate Aminotransferase 71 IU/L (14-36); BUN Creatinine Ratio 15.6 (6-22); Bilirubin Total 1.5 mg/dL (0.2-1.3); Blood Urea Nitrogen 7 mg/dL (7-17); Calcium 8.6 mg/dL (8.4-10.2); Carbon Dioxide 28 mmol/L (22-32); Chloride 98 mmol/L (98-107); Estimated Glomerular Filt Rate > 60 mL/min (>60); Globulin 3.8 g/dL (1.7-4.1); Glucose 129 mg/dL (80-110); HEMOLYSIS < 15 (0-50); Lipase 36 U/L (23-300); Potassium 2.8 mmol/L (3.4-5.1); Sodium 135 mmol/L (137-145); Total Protein 7.9 g/dL (6.3-8.2)
[2023-08-24 13:43] LABS: Procalcitonin 1.65 ng/mL (<0.5)
--- NOTE | 2023-08-24 13:56 | PC.NURSE ---
Pt reports worsening fatigue, SOB with exertion and dizziness which is worse with movement. Pt denies using oxygen or respiratory equipment at home. Pt's o2 is 86% room air during triage and placed on 2L NC, o2 increased to 92%. Pt's o2 sustained for aproximately 15minutes, but pt required increasing oxygen to 4L NC. Provider notified. Pt reports no diagnosis yet at she is following up with hematology after receiving 3L of blood products last week. She has no noticeable bleeding.
[2023-08-24 14:09] LABS: Anisocytosis 2+; Macrocytosis 1+
[2023-08-24 14:15] LABS: Neutrophils Absolute Manual 2135 /uL (3000-5900); Total Cells Counted 100
[2023-08-24 14:17] LABS: Adenovirus Not Detected (Not Detect); B. parapertussis Not Detected (Not Detecte); Bordetella pertussis Not Detected (Not Detect); Chlamydophila pneumoniae Not Detected (Not Detect); Coronavirus 229E Not Detected (Not Detect); Coronavirus HKU1 Not Detected (Not Detect); Coronavirus NL 63 Not Detected (Not Detect); Coronavirus OC43 Not Detected (Not Detect); Human Metapneumovirus Not Detected (Not Detect); Human Rhinovirus/Enterovirus Not Detected (Not Detect); Influenza A Not Detected (Not Detect); Influenza B Not Detected (Not Detect); Mycoplasma pneumoniae Not Detected (Not Detect); Parainfluenza Virus 1 Not Detected (Not Detect); Parainfluenza Virus 2 Not Detected (Not Detect); Parainfluenza Virus 3 Not Detected (Not Detect); Parainfluenza Virus 4 Not Detected (Not Detect); Respiratory Syncytial Virus Not Detected (Not Detect); SARS- CoV-2 Not Detected (Not Detecte)
--- NOTE | 2023-08-24 14:42 | PM.HP.1 ---
History of Present Illness History of Present Illness Date Patient Seen: 08/24/23 Time Patient Seen: 14:51 Chief complaint: LETHARGIC, WEAKNESS Narrative: The patient is a 73-year-old female recently discharged from the hospital. She presents to the emergency department today with 2-3 day history of a dry cough, progressive weakness and fatigue. The patient was discharged on August 10 at which time she was admitted for dyspnea and fatigue and found to be profoundly anemic and leukopenic. She was transfused with 2 units of red cells and felt much better. She would extensive workup including peripheral smear, reticulocyte count, iron panel, [place], and Monospot which were all unremarkable. The etiology of her pancytopenia was unclear but was felt possible that this may be a post COVID bone marrow suppression. The patient is on Eliquis for DVT. There is no report of clinical evidence of GI bleeding. Notes from a GI consultation and August 16 reviewed. The indication was for worsening diarrhea. Notes do not indicate any discussion regarding her anemia. She primarily notes that she has felt poorly for 2-3 days with a cough, some dyspnea, fevers, and fatigue. No rigors. Her cough has not been productive. No specific pain. She is chronic diarrhea. She had a panel blood drawn by Hematology at [facility] 2 days ago which is all pending and the plan is to schedule a bone marrow biopsy for sometime in the next 1-2 weeks and [place]. She has had some nasal symptoms but has a negative respiratory PCR today. She denies any rectal bleeding. [facility] Medical History Trigger finger, right ring finger Post-COVID syndrome DVT (deep venous thrombosis) Eczematous dermatitis Overweight Osteopenia Family history of melanoma Personal history of malignant melanoma Family history of colon cancer BPPV (benign paroxysmal positional vertigo) Urinary incontinence Chronic insomnia Irritable bowel syndrome with diarrhea GERD without esophagitis Impaired fasting glucose Acquired hypothyroidism Mixed hyperlipidemia History of traumatic brain injury Actinic keratosis (~1999) Mumps Measles (~1953) Chicken pox (~1951) Tinnitus (~2007) Thyroid nodule (~1980) Skin cancer (~1999) Melanoma (~2019) Surgical History Anesthesia History of varicose vein stripping (~1985) History of thyroidectomy (~1975) History of hysterectomy (~2010) Family History Father Cancer Mother Cancer Brother Cancer Grandfather Diabetes mellitus Grandmother Cancer Social History details: (Juan), four daughters household members: spouse Smoking Status: Never smoker alcohol intake: current Meds Home Medications and Allergies Home Medications Medication Instructions Recorded Confirmed Type clobetasol 0.05 % scalp solution 1 applic topical QAM AND QPM 03/06/23 08/24/23 History simvastatin 40 mg tablet 40 mg PO BEDTIME #90 tabs 06/11/23 08/24/23 Rx levothyroxine 100 mcg tablet 100 mcg PO DAILY #90 tabs 07/26/23 08/24/23 Rx gabapentin 100 mg capsule 100 mg PO BID #180 caps 08/21/23 08/24/23 Rx Allergies Allergy/AdvReac Type Severity Reaction Status Date / Time bacitracin Allergy Mild Blister Verified 08/24/23 12:44 [From Polysporin(bacitracin base)] neomycin Allergy Mild Blister Verified 08/24/23 12:44 [From Neosporin ([id number])] polymyxin B Allergy Mild Blister Verified 08/24/23 12:44 [From Polysporin(bacitracin base)] Review of Systems Review of Systems Narrative: All else reviewed and otherwise unremarkable except as noted on the history and physical. Exam Vital Signs (past 8 hours): - 08/24/23 12:41 08/24/23 12:46 08/24/23 13:00 Temperature 100.7 F H Pulse Rate 114 H 109 H Respiratory Rate 22 20 Blood Pressure 155/70 H 147/69 H Pulse Oximetry 86 L 91 Oxygen Delivery Method Room Air Oxygen Flow Rate 08/24/23 13:00 08/24/23 13:11 08/24/23 13:23 Temperature 100.7 F H Pulse Rate 109 H Respiratory Rate 25 H 22 Blood Pressure Pulse Oximetry 89 L 94 Oxygen Delivery Method Nasal Cannula Oxygen Flow Rate 3 08/24/23 13:30 08/24/23 13:30 08/24/23 13:45 Temperature Pulse Rate 105 H 104 H Respiratory Rate 26 H 24 Blood Pressure 151/71 H Pulse Oximetry 92 92 Oxygen Delivery Method Oxygen Flow Rate 08/24/23 14:00 08/24/23 14:00 08/24/23 14:00 Temperature 101.0 F H Pulse Rate 101 H Respiratory Rate 23 Blood Pressure 113/52 L Pulse Oximetry 92 Oxygen Delivery Method Nasal Cannula Oxygen Flow Rate 4 08/24/23 14:15 Temperature Pulse Rate 97 H Respiratory Rate 23 Blood Pressure Pulse Oximetry 95 Oxygen Delivery Method Nasal Cannula Oxygen Flow Rate 4 Oxygen Delivery Method Nasal Cannula Oxygen Flow Rate 4 Narrative Exam Narrative: Alert oriented x3, normal speech, somewhat lethargic, no distress. Normocephalic skull, anicteric sclerae EOMI, symmetric pupils. Oropharynx is unremarkable, no droop. Neck is supple, midline trachea. No adenopathy. Lungs are clear with good air movement, normal rate and effort. Heart is regular without murmur. Abdomen is soft, non tender. Extremities are free of edema, good pedal pulses. Skin is free of rash or lesions, no petechiae. She moves arms and legs normally. Joints are not swollen or deformed. Objective Imaging Chest x-ray: Radiologist's impression: Patchy bilateral left greater than right pneumonia without visualized pleural effusion. Labs 08/24/23 12:50 08/24/23 12:50 Labs: Laboratory Results - last 24 hr 08/24/23 08/24/23 12:50 13:11 WBC 3.5 L RBC 2.24 L Hgb 7.8 L Hct 23.3 L MCV 103.9 H MCH 34.8 H MCHC 33.5 RDW 29.1 H Plt Count 193 Neut % (Auto) Not Reportable Lymph % (Auto) Not Reportable [place] % (Auto) Not Reportable Eos % (Auto) Not Reportable Baso % (Auto) Not Reportable Lymph # (Auto) Not Reportable [place] # (Auto) Not Reportable Baso # (Auto) Not Reportable Total Counted 100 Seg Neutrophils % 49.0 Band Neutrophils % 12.0 H Lymphocytes % (Manual) 22.0 L Monocytes % (Manual) 15.0 H Metamyelocytes % 2.0 H Neutrophils # (Manual) 2135 L RBC Morphology See below Anisocytosis 2+ H Macrocytosis 1+ H PT 20.5 H INR 1.8 H APTT 36 Sodium 135 L Potassium 2.8 L Chloride 98 Carbon Dioxide 28 BUN 7 Creatinine 0.45 L Estimated GFR > 60 BUN/Creatinine Ratio 15.6 Glucose 129 H Lactate 0.8 Calcium 8.6 Total Bilirubin 1.5 H AST 71 H ALT 82 H Alkaline Phosphatase 246 H Total Protein 7.9 Albumin 4.1 Globulin 3.8 Albumin/Globulin Ratio 1.1 Lipase 36 Procalcitonin 1.65 H Chlamy pneumoniae PCR Not detected Adenovirus (PCR) Not detected B.parapertussis DNA PCR Not detected Coronavirus OC43 (PCR) Not detected Coronavirus HKU1 (PCR) Not detected Coronavirus 229E (PCR) Not detected SARS-CoV-2 (PCR) Not detected Coronavirus NL63 (PCR) Not detected Human Metapneumovir PCR Not detected Influenza Type A (PCR) Not detected Influenza Type B (PCR) Not detected M. pneumoniae (PCR) Not detected Parainfluenza 1 (PCR) Not detected Parainfluenza 2 (PCR) Not detected Parainfluenza 3 (PCR) Not detected Parainfluenza 4 (PCR) Not detected RSV (PCR) Not detected Entero/Rhino (PCR) Not detected Blood Type A Positive Antibody Screen Negative Assessment & Plan Assessment & Plan narrative: 1. Pneumonia (recent hospitalization), present on admission and active. 2. Anemia and leukopenia, present on admission and active. 3. History of deep vein thrombosis of the right lower extremity on Eliquis at home. present on admission and active. - DVT US in bilateral LE's without DVT but possible superficial medial R ankle clot. 4. Dyslipidemia, present on admission and active. Resume the home statin 5. Hypothyroidism, present on admission and active. Resume the home levothyroxine. TSH was recently normal. 6. CT raising concern for left hydronephrosis versus pelvocaliectasis. Denies any abdominal pain or dysuria or hematuria. Follow-up renal US without hydronephrosis 7. recent COVID infection. Repeat PCR panel negative. 8. Possible urine tract infection today based on dip, culture pending. Plan: -Broad-spectrum antibiotics with cefepime and vancomycin, nasal MRSA swab -IV fluids -Trend H&H, blood transfusion if needed based on threshold. -Urine culture. -Wean oxygen as able. -replete potassium, chronic diarrhea. -No further workup for anemia as this is in progress with Hematology. -Her leukopenia likely does relate to her current acquisition pneumonia. -She is full resuscitation, confirmed today. Her is her proxy decision maker. Time Spent With Patient Time with patient: 30 to 49 minutes with 50% spent counseling/coordinating care Quality MIPS - Admit I confirm the patient?s Advance Care Plan is present, Code status is documented, Surrogate decision maker is in patient?s record [If Yes, STOP here]: Yes The patient?s Advance Care plan is not present because I confirmed today that the patient does not wish or was not able to name a surrogate decision maker or provide an Advance Care Plan.: Yes
[2023-08-24] MEDS: CEFEPIME 2 GM in SODIUM CHLORIDE 0.9% 100 ML IV (14:54)
--- NOTE | 2023-08-24 15:50 | OT.IPNOTE ---
Attempted OT eval and pt insistent that she is able to do her ADL needs and not wanting any OT services at this time. Therefore discharge OT eval.
[2023-08-24] MEDS: DEXTROSE 5%-0.9% NS 1,000 ML 50 ML IV (16:51)
[2023-08-24] MEDS: VANCOMYCIN 1,250 MG/250 ML PIGGYBACK 250 MG IV (16:51)
[2023-08-24 17:09] LABS: Appearance Urine UA CLEAR; Bilirubin Urine UA NEGATIVE (NEGATIVE); Color Urine UA YELLOW; Glucose Urine UA NEGATIVE (Negative); Ketones Urine UA 3+ (NEGATIVE); Leukocyte Esterase Urine UA NEGATIVE (NEGATIVE); Nitrite Urine UA POSITIVE (Negative); Occult Blood Urine UA TRACE-INTACT (Negative); Protein Urine UA 2+ (Negative)
[2023-08-24 17:16] LABS: Bacteria Urine Many (>30); Culture Indicated Urine Specimen Cultured; RBC Urine 0-1/HPF (0-5/HPF); Squamous Epithelial Cell Urine 0-1 /HPF (0-5/HPF); Urine Volume 10mL (spun); WBC Urine 1-5/HPF (0-5/HPF)
[2023-08-24] MEDS: POTASSIUM CHLORIDE 20 MEQ TAB 40 MEQ PO (17:38)
[2023-08-24] MEDS: ACETAMINOPHEN 325 MG TABLET 650 MG PO (20:15)
[2023-08-24] MEDS: ATORVASTATIN 20 MG TABLET PO (20:15)
[2023-08-24] MEDS: GABAPENTIN 100 MG CAPSULE PO (20:15)
[2023-08-24] MEDS: diphenhydrAMINE 25 MG TABLET PO (21:08)
[2023-08-25] VITALS (13 sets, daily range): BP systolic 110–149; BP diastolic 55–74; PULSE 86–110; RESP 16–20; TEMP 36.4–38.4; O2SAT 88–96
[2023-08-25] MEDS: VANCOMYCIN 750 MG/150 ML PIGGYBACK 150 MG IV ×3 (00:38→17:28)
[2023-08-25] MEDS: CEFEPIME 2 GM in SODIUM CHLORIDE 0.9% 100 ML IV ×2 (02:17→15:51)
[2023-08-25] MEDS: LEVOTHYROXINE 100 MCG TABLET PO (05:53)
[2023-08-25] MEDS: DEXTROSE 5%-0.9% NS 1,000 ML 50 ML IV ×2 (05:57→22:38)
[2023-08-25 06:42] LABS: Blood Urea Nitrogen 6 mg/dL (7-17); Calcium 8.1 mg/dL (8.4-10.2); Carbon Dioxide 29 mmol/L (22-32); Chloride 104 mmol/L (98-107); Estimated Glomerular Filt Rate > 60 mL/min (>60); Glucose 134 mg/dL (80-110); HEMOLYSIS < 15 (0-50); Sodium 137 mmol/L (137-145)
[2023-08-25 06:47] LABS: Mean Corpuscular HGB Conc 33.4 % (30-36); Mean Corpuscular Hemoglobin 35.1 PG (26-34); Mean Corpuscular Volume 105.1 fL (80-100); Platelet Count 169 X10^3/uL (150-400); Red Blood Cell Count 1.98 X10^6/uL (4.0-5.2); White Blood Cell Count 3.1 X10^3/uL (4.5-11.0)
[2023-08-25 06:54] LABS: Add Manual Diff / Slide Review YES; Hematocrit 20.9 % (36-46)
--- NOTE | 2023-08-25 08:23 | PM.PN.1 ---
Subjective Subjective Interval history: Hgb down to 7 so 1 unit PRBC ordered. Intermittently nauseous today. ANC >1000 so granix not ordered. Exam Vital Signs (past 8 hours): - 08/25/23 03:00 08/25/23 04:00 Temperature 101.1 F H Pulse Rate 104 H Respiratory Rate 16 Blood Pressure 110/63 Pulse Oximetry 96 96 Oxygen Delivery Method Nasal Cannula Oxygen Flow Rate 2 0 Oxygen Delivery Method Nasal Cannula Oxygen Flow Rate 0 Narrative Exam Narrative: Alert oriented x3, normal speech, somewhat lethargic, no distress. Normocephalic skull, anicteric sclerae EOMI, symmetric pupils. Oropharynx is unremarkable, no droop. Neck is supple, midline trachea. No adenopathy. Lungs are clear with good air movement, normal rate and effort. Heart is regular without murmur. Abdomen is soft, non tender. Extremities are free of edema, good pedal pulses. Skin is free of rash or lesions, no petechiae. She moves arms and legs normally. Joints are not swollen or deformed. Objective Labs 08/25/23 05:10 08/25/23 05:10 Labs: Laboratory Results - last 24 hr 08/24/23 08/24/23 08/24/23 12:50 13:11 15:34 WBC 3.5 L RBC 2.24 L Hgb 7.8 L Hct 23.3 L MCV 103.9 H MCH 34.8 H MCHC 33.5 RDW 29.1 H Plt Count 193 Neut % (Auto) Not Reportable Lymph % (Auto) Not Reportable [place] % (Auto) Not Reportable Eos % (Auto) Not Reportable Baso % (Auto) Not Reportable Lymph # (Auto) Not Reportable [place] # (Auto) Not Reportable Baso # (Auto) Not Reportable Total Counted 100 Seg Neutrophils % 49.0 Band Neutrophils % 12.0 H Lymphocytes % (Manual) 22.0 L Monocytes % (Manual) 15.0 H Metamyelocytes % 2.0 H Neutrophils # (Manual) 2135 L RBC Morphology See below Anisocytosis 2+ H Macrocytosis 1+ H PT 20.5 H INR 1.8 H APTT 36 Sodium 135 L Potassium 2.8 L Chloride 98 Carbon Dioxide 28 BUN 7 Creatinine 0.45 L Estimated GFR > 60 BUN/Creatinine Ratio 15.6 Glucose 129 H Lactate 0.8 Calcium 8.6 Total Bilirubin 1.5 H AST 71 H ALT 82 H Alkaline Phosphatase 246 H Total Protein 7.9 Albumin 4.1 Globulin 3.8 Albumin/Globulin Ratio 1.1 Lipase 36 Procalcitonin 1.65 H Urine Color Yellow Urine Appearance Clear Urine pH 6.0 Ur Specific [place] 1.020 Urine Protein 2+ H Urine Glucose (UA) Negative Urine Ketones 3+ H Urine Occult Blood Trace-intact Urine Nitrate Positive H Urine Bilirubin Negative Urine Urobilinogen 1.0 Ur Leukocyte Esterase Negative Urine RBC 0-1/hpf Urine WBC 1-5/hpf Ur Squamous Epith Cells 0-1 /hpf Urine Bacteria Many (>30) H Ur Culture Indicated? Specimen cultured Vol Urine Centrifuged 10ml (spun) Chlamy pneumoniae PCR Not detected Adenovirus (PCR) Not detected B.parapertussis DNA PCR Not detected Coronavirus OC43 (PCR) Not detected Coronavirus HKU1 (PCR) Not detected Coronavirus 229E (PCR) Not detected SARS-CoV-2 (PCR) Not detected Coronavirus NL63 (PCR) Not detected Human Metapneumovir PCR Not detected Influenza Type A (PCR) Not detected Influenza Type B (PCR) Not detected M. pneumoniae (PCR) Not detected Parainfluenza 1 (PCR) Not detected Parainfluenza 2 (PCR) Not detected Parainfluenza 3 (PCR) Not detected Parainfluenza 4 (PCR) Not detected RSV (PCR) Not detected Entero/Rhino (PCR) Not detected Blood Type A Positive Antibody Screen Negative 08/25/23 05:10 WBC 3.1 L RBC 1.98 L Hgb 7.0 L Hct 20.9 L* MCV 105.1 H MCH 35.1 H MCHC 33.4 RDW 30.0 H Plt Count 169 Neut % (Auto) Not Reportable Lymph % (Auto) Not Reportable [place] % (Auto) Not Reportable Eos % (Auto) Not Reportable Baso % (Auto) Not Reportable Lymph # (Auto) Not Reportable [place] # (Auto) Not Reportable Baso # (Auto) Not Reportable Total Counted Seg Neutrophils % Band Neutrophils % Lymphocytes % (Manual) Monocytes % (Manual) Metamyelocytes % Neutrophils # (Manual) RBC Morphology Anisocytosis Macrocytosis PT INR APTT Sodium 137 Potassium 3.0 L Chloride 104 Carbon Dioxide 29 BUN 6 L Creatinine 0.43 L Estimated GFR > 60 BUN/Creatinine Ratio 14.0 Glucose 134 H Lactate Calcium 8.1 L Total Bilirubin AST ALT Alkaline Phosphatase Total Protein Albumin Globulin Albumin/Globulin Ratio Lipase Procalcitonin Urine Color Urine Appearance Urine pH Ur Specific [place] Urine Protein Urine Glucose (UA) Urine Ketones Urine Occult Blood Urine Nitrate Urine Bilirubin Urine Urobilinogen Ur Leukocyte Esterase Urine RBC Urine WBC Ur Squamous Epith Cells Urine Bacteria Ur Culture Indicated? Vol Urine Centrifuged Chlamy pneumoniae PCR Adenovirus (PCR) B.parapertussis DNA PCR Coronavirus OC43 (PCR) Coronavirus HKU1 (PCR) Coronavirus 229E (PCR) SARS-CoV-2 (PCR) Coronavirus NL63 (PCR) Human Metapneumovir PCR Influenza Type A (PCR) Influenza Type B (PCR) M. pneumoniae (PCR) Parainfluenza 1 (PCR) Parainfluenza 2 (PCR) Parainfluenza 3 (PCR) Parainfluenza 4 (PCR) RSV (PCR) Entero/Rhino (PCR) Blood Type Antibody Screen [facility] Medical History Trigger finger, right ring finger Post-COVID syndrome DVT (deep venous thrombosis) Eczematous dermatitis Overweight Osteopenia Family history of melanoma Personal history of malignant melanoma Family history of colon cancer BPPV (benign paroxysmal positional vertigo) Urinary incontinence Chronic insomnia Irritable bowel syndrome with diarrhea GERD without esophagitis Impaired fasting glucose Acquired hypothyroidism Mixed hyperlipidemia History of traumatic brain injury Actinic keratosis (~1999) Mumps Measles (~1953) Chicken pox (~1951) Tinnitus (~2007) Thyroid nodule (~1980) Skin cancer (~1999) Melanoma (~2019) Surgical History Anesthesia History of varicose vein stripping (~1985) History of thyroidectomy (~1975) History of hysterectomy (~2010) Family History Father Cancer Mother Cancer Brother Cancer Grandfather Diabetes mellitus Grandmother Cancer Social History details: (Juan), four daughters household members: spouse Smoking Status: Never smoker alcohol intake: current Assessment & Plan Assessment & Plan narrative: 1. Pneumonia (recent hospitalization), present on admission and active. 2. Anemia and leukopenia, present on admission and active. 3. History of deep vein thrombosis of the right lower extremity on Eliquis at home. present on admission and active. - DVT US in bilateral LE's without DVT but possible superficial medial R ankle clot. 4. Dyslipidemia, present on admission and active. Resume the home statin 5. Hypothyroidism, present on admission and active. Resume the home levothyroxine. TSH was recently normal. 6. CT raising concern for left hydronephrosis versus pelvocaliectasis. Denies any abdominal pain or dysuria or hematuria. Follow-up renal US without hydronephrosis 7. recent COVID infection. Repeat PCR panel negative. 8. UTI, with culture growing GNB. Plan: -Broad-spectrum antibiotics with cefepime and vancomycin, nasal MRSA swab. Likely will treat with extended course of levaquin until follow-up with oncology for BM biopsy. -IV fluids -Trend H&H, gave 1 unit PRBC on 08/25 for Hgb of 7. -Urine culture with GNB. -Wean oxygen as able. -replete potassium, chronic diarrhea. -No further workup for anemia as this is in progress with Hematology. -Her leukopenia likely does relate to her current acquisition pneumonia. -She is full resuscitation Her is her proxy decision maker. Dispo: Home in 1-2 days. Time Spent With Patient Time with patient: 30 to 49 minutes with 50% spent counseling/coordinating care Quality VTE Deep Vein Thrombosis/Pulmonary Embolism Present on Admission: No
[2023-08-25] MEDS: GABAPENTIN 100 MG CAPSULE PO ×2 (08:25→20:53)
[2023-08-25] MEDS: ACETAMINOPHEN 325 MG TABLET 650 MG PO ×2 (08:25→19:48)
[2023-08-25] MEDS: BENZONATATE 100 MG CAPSULE PO (09:21)
[2023-08-25 09:30] LABS: Magnesium 1.7 mg/dL (1.6-2.3)
[2023-08-25 09:36] LABS: MRSA (Nasal) PCR Not Detected (Not Detect)
--- NOTE | 2023-08-25 10:33 | CM.DANOTE ---
DCP: Case received, EMR reviewed and met with patient. Spouse, Federico, was at bedside. Introduced self and role. Was able to complete DCP assessment based upon information currently available. Patient is a 73 year old female who admitted yesterday afternoon to the care of the hospitalist team. PCP: Dr. Montoya. Payer: confirmed: [facility]. Patient came to the hospital via private vehicle secondary to having weakness and coughing for the last 2-3 days. Patient had been here recently and discharged on 08-15, for Leukopenia. Patient recently started seeing a foreign car mechanic. Patient was diagnosed with Pneumonia, and Uti. Patient is supposed to have a bone marrow biopsy next week in [place]. Met with patient and spouse, Federico, in the room. Confirmed that she and her spouse reside in [place]. Confirmed that she is independent at her baseline. She confirmed that she had an appointment with foreign car mechanic already, and the plan for the bone marrow biopsy. P: DCP to continue to follow. Plan is home when stable, hospitalist will be placing patient on some oral antibiotics, when ready for home. Griselda Norman RN/Stone Polisher Machine Discharge Planning/Care Management CM Discharge Assessment Start: 08/25/23 10:32 Freq: Status: Active Protocol: Document 08/25/23 10:32 (Rec: 08/25/23 10:33 [id number]) Discharge Planning Assessment Assigned Neuropsychiatric Aide Griselda Norman RN/Stone Polisher Machine Advance Directives? Yes Advance Directives on File No History Provided By Patient,Family Member,Medical Record Prior Living Arrangements House Household Members spouse Type of transporation used prior to Drives own vehicle admit Independent with ADL's Yes Is patient alert and oriented? Yes Caregiver for Another No Barriers to Discharge No Comment Has supportive spouse. Discharge Plan Home Transportation Arrangement Spouse Referrals Initiated None needed Whiteboard Updated in Patient Room with Yes name and ext. # of Neuropsychiatric Aide Review Status In Process Next Review Type Continued Stay Review
[2023-08-25 11:32] LABS: Anisocytosis 2+; Macrocytosis 1+; Neutrophils Absolute Manual 1736 /uL (3000-5900); Total Cells Counted 100
[2023-08-25] MEDS: POTASSIUM CHLORIDE 20 MEQ TAB 40 MEQ PO ×2 (11:41→17:29)
--- NOTE | 2023-08-25 13:24 | PT-IP ANOTE ---
PT eval received and EMR reviewed. pt with Hgb 7 and Hct 20.9. talked with nurse and confirmed that pt will be receiving transfusion. PT eval hold at this time. will f/u.
--- NOTE | 2023-08-25 15:24 | PT-IP ANOTE ---
checked on pt and pt just completed her transfusion and also prefers PT tomorrow. pt on hold for today. will f/u.
[2023-08-25] MEDS: ONDANSETRON 4 MG/2 ML INJ IV ×2 (15:51→19:42)
[2023-08-25] MEDS: MAGNESIUM SULFATE 2 GM/50 ML PIGGYBACK IV (15:51)
[2023-08-25 17:08] LABS: Vancomycin Trough 7.5 ug/mL (10-20)
[2023-08-25] MEDS: VANCOMYCIN PEAK 1 REQUEST MISC (19:42)
[2023-08-25] MEDS: SODIUM CHLORIDE 0.9% FLUSH 10 ML IV (19:48)
[2023-08-25 20:07] LABS: Vancomycin Peak 15.8 ug/mL (20-40)
[2023-08-25] MEDS: ATORVASTATIN 20 MG TABLET PO (20:52)
[2023-08-25] MEDS: diphenhydrAMINE 25 MG TABLET PO (21:21)
[2023-08-25] MEDS: BENZOCAINE/MENTHOL 1 LOZ PKT 1 EACH PO (21:21)
--- NOTE | 2023-08-25 22:24 | PC.NURSE ---
Patient is alert and oriented with flat affect. Breath sounds with coarse crackles in LML and LLL. Dry sounding, nonproductive cough but declines Tessalon stating it doesn't work. Requested Cepacol geovanna and notified and order received for it and patient provided with it. Is on oxygen at 2L/min with sat of 96%. HRR w/BP of 149/74. Did complain of nausea w/dry heaves at start of shift and was medicated with Zofran with resolution of nausea. BT present and reports having had BM earlier today. Denied dysuria with urination. Is able to move self in bed and provided SBA when out of bed related to weakness althought states improved from prior to admit. Did complain of headached at start of shift and medicated with Tylenol and pain to 09/15. Agreeable to having bilateral calf SCD's placed as has hx of DVT but tolerated them only for an hour stating she couldn't sleep with them on but states she would be agreeable to having them on during the day. Fall risk score is moderate but calls for assistance appropriately so alarm is not currently in use. Did request additional Benadryl for sleep and message sent to Dr. Perdue who has not yet responded.
[2023-08-25] MEDS: diphenhydrAMINE 25 MG TABLET 50 MG PO (23:13)
[2023-08-26] VITALS (13 sets, daily range): BP systolic 112–139; BP diastolic 56–73; PULSE 82–101; RESP 16–20; TEMP 36.4–38.2; O2SAT 91–96
[2023-08-26] MEDS: VANCOMYCIN 750 MG/150 ML PIGGYBACK 150 MG IV ×2 (00:45→09:55)
[2023-08-26] MEDS: CEFEPIME 2 GM in SODIUM CHLORIDE 0.9% 100 ML IV ×2 (03:00→15:33)
[2023-08-26] MEDS: ACETAMINOPHEN 325 MG TABLET 650 MG PO ×3 (03:45→23:47)
[2023-08-26] MEDS: BENZONATATE 100 MG CAPSULE PO (05:17)
[2023-08-26] MEDS: LEVOTHYROXINE 100 MCG TABLET PO (05:17)
[2023-08-26 10:24] LABS: Add Manual Diff / Slide Review YES; Hematocrit 26.2 % (36-46); Hemoglobin 8.9 g/dL (12.0-16.0); Mean Corpuscular HGB Conc 33.9 % (30-36); Mean Corpuscular Volume 100.4 fL (80-100); Platelet Count 175 X10^3/uL (150-400); Red Blood Cell Count 2.61 X10^6/uL (4.0-5.2); Red Cell Distribution Width 30.4 % (11.6-14.8); White Blood Cell Count 3.2 X10^3/uL (4.5-11.0)
[2023-08-26] MEDS: GABAPENTIN 100 MG CAPSULE PO ×2 (10:24→20:49)
[2023-08-26 10:31] LABS: BUN Creatinine Ratio 14.3 (6-22); Blood Urea Nitrogen 6 mg/dL (7-17); Calcium 8.6 mg/dL (8.4-10.2); Carbon Dioxide 29 mmol/L (22-32); Chloride 102 mmol/L (98-107); Estimated Glomerular Filt Rate > 60 mL/min (>60); Glucose 112 mg/dL (80-110); HEMOLYSIS < 15 (0-50); Potassium 3.4 mmol/L (3.4-5.1); Sodium 140 mmol/L (137-145)
--- NOTE | 2023-08-26 10:55 | CM.DPNOTE ---
Addendum entered by JAVON Lakhani 08/26/23 12:19: PT rec home with assistance. Per CM notes, pt has spouse support at home. 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 Per hospitalist in morning rounds, likely here another day or so. Pt remains on 2ltrs O2. Per chart review, PT unable to work with Pt yesterday due to low H&H. recent H&H trending up. No new CM needs identified at this time. Plan: home with spouse and adult children support when stable. f/u with PT recs post eval. CM team will continue to follow closely. JAVON Lakhani
--- NOTE | 2023-08-26 12:07 | PT.IIE ---
Current Diagnoses Pneumonia, unspecified organism (08/24/23) Surgical History (Last Reviewed 08/24/23 @ 14:57 by Kwan Moffett MD) Anesthesia History of hysterectomy (~2010) History of thyroidectomy (~1975) History of varicose vein stripping (~1985) Medical History (Last Reviewed 08/24/23 @ 14:57 by Kwan Moffett MD) Acquired hypothyroidism Actinic keratosis (~1999) BPPV (benign paroxysmal positional vertigo) Chicken pox (~1951) Chronic insomnia DVT (deep venous thrombosis) Eczematous dermatitis Family history of colon cancer Family history of melanoma GERD without esophagitis History of traumatic brain injury Impaired fasting glucose Irritable bowel syndrome with diarrhea Measles (~1953) Melanoma (~2018) Mixed hyperlipidemia Mumps Osteopenia Overweight Personal history of malignant melanoma Post-COVID syndrome Skin cancer (~1999) Thyroid nodule (~1980) Tinnitus (~2007) Trigger finger, right ring finger Urinary incontinence Physical Therapy Inpatient Evaluation/Re-Eval M1 PT/OT-IP Prior Functional Status Start: 08/26/23 11:59 Freq: NEEDED Status: Active Protocol: Document 08/26/23 11:45 MB (Rec: 08/26/23 12:06 MB [id number]) Medical Review Prior Functional Status Medical History Reviewed Yes Diet/Fluid Consistency Regular Communication WNLs Mobility and Gait I Activities of Daily Living and IADL's I Prior Functional Level (Other details) I Social History Household Members spouse Living Arrangements House Number of Floors (Floors) One Floor Number of Stairs To Enter/Railing? No steps to enter Home Environment Walk in Shower Home Equipment Straight Cane Employment Status Retired M2 PT-IP Current Condition Start: 08/26/23 11:59 Freq: NEEDED Status: Active Protocol: Document 08/26/23 11:45 MB (Rec: 08/26/23 12:06 MB [id number]) Physical Therapy Current Condition Current Condition Evaluation Date 08/26/23 Treatment Diagnosis PNA M3 PT-IP Subjective Start: 08/26/23 11:59 Freq: NEEDED Status: Active Protocol: Document 08/26/23 11:45 MB (Rec: 08/26/23 12:06 MB [id number]) Subjective Physical Therapy Visit Type Type Initial Evaluation Visit Start Time 11:45 Visit Stop Time 12:00 Number of [place] STUDIES PROFESSOR Visits 0 Physical Therapy Visit Comments Patient Comments To visit with family, to d/c home when ready Therapy Pain Assessment Pain When Pain Assessed At Rest Pain Present Pain Present Denied Pain M4 PT-IP Mobility and Gait Start: 08/26/23 11:59 Freq: NEEDED Status: Active Protocol: Document 08/26/23 11:45 MB (Rec: 08/26/23 12:06 MB [id number]) PT-Bed Mobility Assessment Rolling Level of Assist Standby Assistance Supine to Sit Supine to Sit Standby Assistance,1 Person Assistance,Head of Bed Elevated,Bedrails Sit to Supine Sit to Supine Standby Assistance,1 Person Assistance,Head of Bed Elevated,Bedrails Scooting Scooting to Edge of Bed Standby Assistance Scooting Up and Down in Bed Standby Assistance PT-Transfer Assessment Sit to and From Stand Sit to and from Stand Contact Guard Assistance,1 Person Assistance,Use of Upper Extremities Equipment Transfer Assistive Device None Orthotic/Prosthetic Devices or Brace: No Transfers Transfer Destination Toilet Transfer Technique Ambulating Transfer Ability Level of Assist Contact Guard Assistance,1 Person Assistance,Use of Upper Extremities Comments Mobility Comments Pt tends to put one hand on IV pole and PT provides CGA, she has short steps and decreased foot clearance Gait Assessment Gait Gait Assistance Required: Contact Guard Assist Distance (Feet) 20 Able to Maintain Weight Bearing Status Yes During Gait Assistive Devices Assistive Device None Orthotic/Prosthetic Devices or Brace: No Gait Deviations General Gait Pattern Decreased Stride Length, Decreased Feet Clearance Factors Limiting Gait Function Factors Limiting Gait Function Decreased Activity Tolerance, Poor Balance Comments Gait Comments See mobility comments above, 20'x1, 15'x1, 15'x1 for gait with pt pushing IV pole occ and PT CGA for pt and also assisting with IV pole PT-Balance Assessment Sitting Balance and Reactions Static Sitting Balance Ability Good Dynamic Sitting Balance Ability Good Standing Balance and Reactions Static Standing Balance Ability Good Dynamic Standing Balance Ability Fair Device Used Reaches for IV pole M5 PT-IP Objective Assessments Start: 08/26/23 11:59 Freq: NEEDED Status: Active Protocol: Document 08/26/23 11:45 MB (Rec: 08/26/23 12:06 MB [id number]) Orientation Orientation/Cognition Level of Alertness Alert Orientation Name,Age,Birthday,Month,Date, Year,Day of Week,Place, Situation Language Function Ability No Deficits Noted Safety Awareness Understands Safety Issues Memory Description No Deficits Noted Gross Range of Motion Upper Extremity ROM Assessment Within Functional Limits Lower Extremity ROM Assessment Within Functional Limits Strength Upper Extremity Strength Assessment Within Functional Limits Lower Extremity Strength Assessment Within Functional Limits M6 PT-IP Treatment Start: 08/26/23 11:59 Freq: NEEDED Status: Active Protocol: Document 08/26/23 11:45 MB (Rec: 08/26/23 12:06 MB [id number]) Physical Therapy Treatment Education Education Provided Safety M7 PT-IP Assessment and Plan Start: 08/26/23 11:59 Freq: NEEDED Status: Active Protocol: Document 08/26/23 11:45 MB (Rec: 08/26/23 12:06 MB [id number]) PT Summary Assessment and Plan Potential Rehabilitation Potential Good Status of Condition at Evaluation Evolving Summary Impairments Bed Mobility,Transfers,Gait, Activity Tolerance Progress Towards Goals Progressing Toward Goals Assessment Summary Pt is a pleasant 73 y/o female who had recent hospitalization and is awaiting bone biopsy. She is adm with PNA this adm and received blood transfusion last date. Her strength is functional with MMT and she has some imbalance with transfers and short gait today . She will benefit from up with assistance in room and in hallway with nsg and may benefit from another PT treatment in acute setting while she is here. She will d/ c home with partner and they have no steps to enter or in the home. She does not wish to use AD and so will assess gait for I. Goals Bed Mobility Goal Independent Transfer Goal Independent Gait Goal Independent Gait Distance 200 Days to Meet Goals 3 Frequency of Treatment Frequency Of Treatment Once a Day Treatment Plan Physical Therapy Treatment Plan Bed Mobility Training,Transfer Training,Gait Training, Therapeutic Exercise,Balance Retraining,Discharge Planning Precautions Other Precautions Imbalance/fall risk Weight Bearing Status Weight Bearing Status Weight Bear as Tolerated Recommendations To Nursing Amount of Assist Needed 1 Person Assist Discharge Recommendations PT Discharge Recommendations Home with Assistance Transportation Needs at Discharge Private Vehicle
[2023-08-26 12:15] LABS: Anisocytosis 2+; Macrocytosis 1+; Neutrophils Absolute Manual 1440 /uL (3000-5900); Total Cells Counted 100
[2023-08-26] MEDS: POTASSIUM CHLORIDE 20 MEQ TAB 40 MEQ PO (15:34)
--- NOTE | 2023-08-26 15:56 | PM.PN.1 ---
Subjective Subjective Interval history: Hgb improved to 8.9 today after 1 unit PRBC. Patient feels much better. O2 still at 2L at rest. Patient able to eat more today too. She thinks she'll be ready for home tomorrow. Exam Vital Signs (past 8 hours): - 08/26/23 08:20 08/26/23 08:20 08/26/23 08:26 Temperature 97.6 F Pulse Rate 82 Respiratory Rate 18 Blood Pressure 112/59 L Pulse Oximetry 94 94 Oxygen Delivery Method Nasal Cannula Nasal Cannula Oxygen Flow Rate 2 2 08/26/23 09:30 08/26/23 12:00 08/26/23 13:10 Temperature 99 F Pulse Rate 101 H Respiratory Rate 16 Blood Pressure 128/69 Pulse Oximetry 96 93 91 Oxygen Delivery Method Nasal Cannula Room Air Oxygen Flow Rate 2 2 Oxygen Delivery Method Room Air Oxygen Flow Rate 2 Narrative Exam Narrative: Alert oriented x3, normal speech, no distress. Normocephalic skull, anicteric sclerae EOMI, symmetric pupils. Oropharynx is unremarkable, no droop. Neck is supple, midline trachea. No adenopathy. Lungs are clear with good air movement, normal rate and effort. Heart is regular without murmur. Abdomen is soft, non tender. Extremities are free of edema, good pedal pulses. Skin is free of rash or lesions, no petechiae. She moves arms and legs normally. Joints are not swollen or deformed. Objective Labs 08/26/23 09:11 08/26/23 09:11 Labs: Laboratory Results - last 24 hr 08/24/23 08/25/23 08/25/23 12:50 16:24 19:38 WBC RBC Hgb Hct MCV MCH MCHC RDW Plt Count Neut % (Auto) Lymph % (Auto) [place] % (Auto) Eos % (Auto) Baso % (Auto) Lymph # (Auto) [place] # (Auto) Baso # (Auto) Total Counted Seg Neutrophils % Band Neutrophils % Lymphocytes % (Manual) Atypical Lymphs % Monocytes % (Manual) Eosinophils % (Manual) Metamyelocytes % Myelocytes % Promyelocytes % Neutrophils # (Manual) RBC Morphology Anisocytosis Macrocytosis Sodium Potassium Chloride Carbon Dioxide BUN Creatinine Estimated GFR BUN/Creatinine Ratio Glucose Calcium Vancomycin Peak 15.8 L Vancomycin Trough 7.5 L Crossmatch See Detail 08/26/23 09:11 WBC 3.2 L RBC 2.61 L Hgb 8.9 L Hct 26.2 L MCV 100.4 H D MCH 34.0 MCHC 33.9 RDW 30.4 H Plt Count 175 Neut % (Auto) Not Reportable Lymph % (Auto) Not Reportable [place] % (Auto) Not Reportable Eos % (Auto) Not Reportable Baso % (Auto) Not Reportable Lymph # (Auto) Not Reportable [place] # (Auto) Not Reportable Baso # (Auto) Not Reportable Total Counted 100 Seg Neutrophils % 42.0 Band Neutrophils % 3.0 Lymphocytes % (Manual) 30.0 Atypical Lymphs % 1.0 H Monocytes % (Manual) 9.0 Eosinophils % (Manual) 2.0 Metamyelocytes % 3.0 H Myelocytes % 9.0 H Promyelocytes % 1.0 H Neutrophils # (Manual) 1440 L RBC Morphology See below Anisocytosis 2+ H Macrocytosis 1+ H Sodium 140 Potassium 3.4 Chloride 102 Carbon Dioxide 29 BUN 6 L Creatinine 0.42 L Estimated GFR > 60 BUN/Creatinine Ratio 14.3 Glucose 112 H Calcium 8.6 Vancomycin Peak Vancomycin Trough Crossmatch [facility] Medical History Trigger finger, right ring finger Post-COVID syndrome DVT (deep venous thrombosis) Eczematous dermatitis Overweight Osteopenia Family history of melanoma Personal history of malignant melanoma Family history of colon cancer BPPV (benign paroxysmal positional vertigo) Urinary incontinence Chronic insomnia Irritable bowel syndrome with diarrhea GERD without esophagitis Impaired fasting glucose Acquired hypothyroidism Mixed hyperlipidemia History of traumatic brain injury Actinic keratosis (~1999) Mumps Measles (~1953) Chicken pox (~1951) Tinnitus (~2007) Thyroid nodule (~1980) Skin cancer (~1999) Melanoma (~2018) Surgical History Anesthesia History of varicose vein stripping (~1985) History of thyroidectomy (~1975) History of hysterectomy (~2010) Family History Father Cancer Mother Cancer Brother Cancer Grandfather Diabetes mellitus Grandmother Cancer Social History details: (Juan), four daughters household members: spouse Smoking Status: Never smoker alcohol intake: current Assessment & Plan Assessment & Plan narrative: 1. Pneumonia (recent hospitalization), present on admission and active. 2. Anemia and leukopenia, present on admission and active. 3. History of deep vein thrombosis of the right lower extremity on Eliquis at home. present on admission and active. - DVT US in bilateral LE's without DVT but possible superficial medial R ankle clot. 4. Dyslipidemia, present on admission and active. Resume the home statin 5. Hypothyroidism, present on admission and active. Resume the home levothyroxine. TSH was recently normal. 6. CT raising concern for left hydronephrosis versus pelvocaliectasis. Denies any abdominal pain or dysuria or hematuria. Follow-up renal US without hydronephrosis 7. recent COVID infection. Repeat PCR panel negative. 8. UTI, with culture growing GNB. Plan: -Broad-spectrum antibiotics with cefepime and vancomycin, nasal MRSA swab. Likely will treat with extended course (2 weeks) of levaquin until follow-up with oncology for BM biopsy. -IV fluids -Trend H&H, gave 1 unit PRBC on 08/25 for Hgb of 7. Hgb now 8.9. -Urine culture with GNB. Abx as above. -Wean oxygen as able. Still on 2L [place]. -replete potassium, chronic diarrhea. -No further workup for anemia as this is in progress with Hematology. -Her leukopenia likely does relate to her current acquisition pneumonia. -She is full resuscitation Her is her proxy decision maker. Dispo: Home on 08/27. May need home O2. Time Spent With Patient Time with patient: 30 to 49 minutes with 50% spent counseling/coordinating care Quality VTE Deep Vein Thrombosis/Pulmonary Embolism Present on Admission: No
[2023-08-26] MEDS: DEXTROSE 5%-0.9% NS 1,000 ML 50 ML IV (17:07)
[2023-08-26] MEDS: VANCOMYCIN 1,250 MG/250 ML PIGGYBACK 250 MG IV ×2 (17:11→23:48)
[2023-08-26] MEDS: diphenhydrAMINE 25 MG TABLET 50 MG PO (20:49)
[2023-08-26] MEDS: ATORVASTATIN 20 MG TABLET PO (20:49)
[2023-08-26] MEDS: SODIUM CHLORIDE 0.9% FLUSH 10 ML IV (23:03)
[2023-08-27] VITALS (8 sets, daily range): BP systolic 107–128; BP diastolic 55–66; PULSE 81–94; RESP 16–18; TEMP 36.4–36.8; O2SAT 84–92
[2023-08-27] MEDS: CEFEPIME 2 GM in SODIUM CHLORIDE 0.9% 100 ML IV (03:22)
[2023-08-27] MEDS: LEVOTHYROXINE 100 MCG TABLET PO (05:21)
[2023-08-27 05:51] LABS: BUN Creatinine Ratio 13.2 (6-22); Blood Urea Nitrogen 5 mg/dL (7-17); Calcium 8.2 mg/dL (8.4-10.2); Carbon Dioxide 27 mmol/L (22-32); Chloride 106 mmol/L (98-107); Estimated Glomerular Filt Rate > 60 mL/min (>60); Glucose 106 mg/dL (80-110); HEMOLYSIS < 15 (0-50); Hematocrit 23.3 % (36-46); Hemoglobin 7.9 g/dL (12.0-16.0); Mean Corpuscular Volume 99.9 fL (80-100); Platelet Count 145 X10^3/uL (150-400); Potassium 3.4 mmol/L (3.4-5.1); Red Blood Cell Count 2.33 X10^6/uL (4.0-5.2); Red Cell Distribution Width 30.6 % (11.6-14.8); Sodium 138 mmol/L (137-145); White Blood Cell Count 2.9 X10^3/uL (4.5-11.0)
[2023-08-27 05:52] LABS: Add Manual Diff / Slide Review YES
[2023-08-27 07:11] LABS: Anisocytosis 2+; Neutrophils Absolute Manual 638 /uL (3000-5900); Total Cells Counted 100
--- NOTE | 2023-08-27 10:15 | CM.DPNOTE ---
DCP Note BELTING CUTTER reviewed EMR. Per hospitalist in rounds, anticipate dc today home with family. BELTING CUTTER entered room and introduced self and role. pt resting in bed accompanied by spouse at bedside. Pt reports no CM needs. Pt reports hospitalist was looking into a different med for her and then she could dc home. Plan: anticipate home today with family support. No CM needs identified. CM team will follow as needed. JAVON Lakhani
[2023-08-27] MEDS: VANCOMYCIN 1,250 MG/250 ML PIGGYBACK 250 MG IV (10:18)
[2023-08-27] MEDS: POTASSIUM CHLORIDE 20 MEQ TAB 40 MEQ PO (10:18)
[2023-08-27] MEDS: SODIUM CHLORIDE 0.9% FLUSH 10 ML IV (10:19)
[2023-08-27] MEDS: GABAPENTIN 100 MG CAPSULE PO (10:19)
[2023-08-27] MEDS: DIPHENOXYLATE/ATROP 2.5/0.025 TABLET 1 EACH PO (10:19)
--- NOTE | 2023-08-27 14:15 | PM.DS.1 ---
History of Present Illness History of Present Illness Date Patient Seen: 08/27/23 Time Patient Seen: 14:51 Chief complaint: LETHARGIC, WEAKNESS Narrative: Per admitting provider, The patient is a 73-year-old female recently discharged from the hospital. She presents to the emergency department today with 2-3 day history of a dry cough, progressive weakness and fatigue. The patient was discharged on August 10 at which time she was admitted for dyspnea and fatigue and found to be profoundly anemic and leukopenic. She was transfused with 2 units of red cells and felt much better. She would extensive workup including peripheral smear, reticulocyte count, iron panel, [place], and Monospot which were all unremarkable. The etiology of her pancytopenia was unclear but was felt possible that this may be a post COVID bone marrow suppression. The patient is on Eliquis for DVT. There is no report of clinical evidence of GI bleeding. Notes from a GI consultation and August 16 reviewed. The indication was for worsening diarrhea. Notes do not indicate any discussion regarding her anemia. She primarily notes that she has felt poorly for 2-3 days with a cough, some dyspnea, fevers, and fatigue. No rigors. Her cough has not been productive. No specific pain. She is chronic diarrhea. She had a panel blood drawn by Hematology at [facility] 2 days ago which is all pending and the plan is to schedule a bone marrow biopsy for sometime in the next 1-2 weeks and [place]. She has had some nasal symptoms but has a negative respiratory PCR today. She denies any rectal bleeding. Discharge Providers Provider Date of admission: 08/24/23 14:17 Discharge Date: 08/27/23 Primary care physician: Grabiel Montoya MD Consults: 08/24/23 15:19 Consult to Occupational Therapy Evaluate & Treat Comment: Physician Instructions: Evaluate and treat Consult to Physical Therapy Evaluate & Treat Comment: Physician Instructions: Evaluate and Treat Discharge provider: Vasu Ferrer DO Summary Hospital Course Discharge Diagnosis: 1. Pneumonia (recent hospitalization), present on admission and active. 2. Anemia and leukopenia, present on admission and active. 3. History of deep vein thrombosis of the right lower extremity on Eliquis at home. present on admission and active. 4. Dyslipidemia, present on admission and active. 5. Hypothyroidism, present on admission and active. 7. recent COVID infection. Repeat PCR panel negative. 8. UTI Hospital Course: This is a 73 year old female with PMH of DVT, HLD, hypothyroid who was admitted with acute possible on chronic respiratory and admitted with a presumed recurrent pneumonia. She had slow improvement with antibiotics including MRSA coverage, but was unable to be weaned fully from supplemental oxygen. There is a question of chronic hypoxic respiratory failure, and patient was agreeable for discharge home with home oxygen. She was also anemia (recurrent issue) and given 1 U PRBC transfusion with improvement in Hg level. She will complete another 5 days of antibiotics at home with augmentin and doxycycline. UA was positive, with culture growing E. coli sensitive to augmentin. Time Spent with Patient Time spent: Greater than 30 minutes Exam Vital Signs (past 8 hours): - 08/27/23 07:00 08/27/23 07:41 08/27/23 08:00 Temperature 98.2 F Pulse Rate 91 H 94 H Respiratory Rate 16 Blood Pressure 128/62 Pulse Oximetry 92 90 L Oxygen Delivery Method Nasal Cannula Nasal Cannula Oxygen Flow Rate 2 2 Fraction of Inspired Oxygen 28 08/27/23 12:00 Temperature 98.2 F Pulse Rate 92 H Respiratory Rate Blood Pressure 121/66 Pulse Oximetry 84 L Oxygen Delivery Method Oxygen Flow Rate 0 Fraction of Inspired Oxygen Fraction of Inspired Oxygen 28 SaO2/FiO2 Ratio 328 Oxygen Delivery Method Nasal Cannula Oxygen Flow Rate 0 Narrative Exam Narrative: Alert oriented x3, normal speech, no distress. Normocephalic skull, anicteric sclerae EOMI, symmetric pupils. Oropharynx is unremarkable, no droop. Neck is supple, midline trachea. No adenopathy. Lungs are clear with good air movement, normal rate and effort. Heart is regular without murmur. Abdomen is soft, non tender. Extremities are free of edema, good pedal pulses. Skin is free of rash or lesions, no petechiae. She moves arms and legs normally. Joints are not swollen or deformed. Objective Labs 08/27/23 05:18 08/27/23 05:18 Labs: Laboratory Results - last 24 hr 08/27/23 05:18 WBC 2.9 L RBC 2.33 L Hgb 7.9 L Hct 23.3 L MCV 99.9 MCH 34.0 MCHC 34.0 RDW 30.6 H Plt Count 145 L Neut % (Auto) Not Reportable Lymph % (Auto) Not Reportable [place] % (Auto) Not Reportable Eos % (Auto) Not Reportable Baso % (Auto) Not Reportable Lymph # (Auto) Not Reportable [place] # (Auto) Not Reportable Baso # (Auto) Not Reportable Total Counted 100 Seg Neutrophils % 22.0 L Lymphocytes % (Manual) 48.0 H Atypical Lymphs % 8.0 H Monocytes % (Manual) 22.0 H Neutrophils # (Manual) 638 L RBC Morphology Not Reportable Anisocytosis 2+ H Sodium 138 Potassium 3.4 Chloride 106 Carbon Dioxide 27 BUN 5 L Creatinine 0.38 L Estimated GFR > 60 BUN/Creatinine Ratio 13.2 Glucose 106 Calcium 8.2 L PFSH Medical History Trigger finger, right ring finger Post-COVID syndrome DVT (deep venous thrombosis) Eczematous dermatitis Overweight Osteopenia Family history of melanoma Personal history of malignant melanoma Family history of colon cancer BPPV (benign paroxysmal positional vertigo) Urinary incontinence Chronic insomnia Irritable bowel syndrome with diarrhea GERD without esophagitis Impaired fasting glucose Acquired hypothyroidism Mixed hyperlipidemia History of traumatic brain injury Actinic keratosis (~1999) Mumps Measles (~1953) Chicken pox (~1951) Tinnitus (~2007) Thyroid nodule (~1980) Skin cancer (~1999) Melanoma (~2018) Surgical History Anesthesia History of varicose vein stripping (~1985) History of thyroidectomy (~1975) History of hysterectomy (~2010) Family History Father Cancer Mother Cancer Brother Cancer Grandfather Diabetes mellitus Grandmother Cancer Social History details: (Juan), four daughters household members: spouse Smoking Status: Never smoker alcohol intake: current Discharge Plan Discharge Plan Patient Disposition: Home Provider Discharge Comment: You were admitted to the hospital with trouble breathing and possible recurrent pneumonia. You improved with antibiotics. Please finish treatment at home, primary care follow up recommended for next week. You are still requiring supplemental oxygen, prescribed home O2 which hopefully may be able to be weaned over time. Discharge orders & Medications Prescriptions: New amoxicillin-pot clavulanate 875-125 mg tablet 1 tab PO BID 5 Days Qty: 10 0RF doxycycline hyclate 100 mg tablet 100 mg PO BID 5 Days Qty: 10 0RF Continued simvastatin 40 mg tablet 40 mg PO BEDTIME Qty: 90 3RF levothyroxine 100 mcg tablet 100 mcg PO DAILY Qty: 90 3RF gabapentin 100 mg capsule 100 mg PO BID Qty: 180 3RF clobetasol 0.05 % solution 1 applic topical QAM AND QPM Follow up/Referrals: Grabiel Montoya MD [Primary Care Provider] - 1 Week Diet/Activity/Treatments Diet: Diet as Tolerated and Regular Activity: As tolerated, no restrictions. Visit Report/Discharge Packet Stand Alone Forms: Patient Portal/API, Stroke Signs & Symptoms Discharge Data Primary Care Provider: Grabiel Montoya V Quality VTE Deep Vein Thrombosis/Pulmonary Embolism Present on Admission: No
--- NOTE | 2023-08-27 15:41 | PT.IPTN ---
Current Diagnoses Pneumonia, unspecified organism (08/24/23) Physical Therapy Treatment Note M2 PT-IP Current Condition Start: 08/26/23 11:59 Freq: NEEDED Status: Active Protocol: Document 08/26/23 11:45 MB (Rec: 08/26/23 12:06 MB [id number]) Physical Therapy Current Condition Current Condition Evaluation Date 08/26/23 Treatment Diagnosis PNA M3 PT-IP Subjective Start: 08/26/23 11:59 Freq: NEEDED Status: Active Protocol: Document 08/27/23 15:34 MB (Rec: 08/27/23 15:40 MB [id number]) Subjective Physical Therapy Visit Type Type Treatment Note Visit Start Time 15:05 Visit Stop Time 15:28 Number of LIFE SCIENCE TEACHER Visits 0 Physical Therapy Visit Comments Patient Comments Pt is agreeable to PT, RT arrives and so O2 sats on various levels of O2 checked throughout mobility Therapy Pain Assessment Pain When Pain Assessed At Rest Pain Present Pain Present Denied Pain M4 PT-IP Mobility and Gait Start: 08/26/23 11:59 Freq: NEEDED Status: Active Protocol: Document 08/27/23 15:34 MB (Rec: 08/27/23 15:40 MB [id number]) PT-Bed Mobility Assessment Supine to Sit Supine to Sit Standby Assistance,1 Person Assistance,Head of Bed Elevated,Bedrails Scooting Scooting to Edge of Bed Standby Assistance Scooting Up and Down in Bed Standby Assistance PT-Transfer Assessment Sit to and From Stand Sit to and from Stand Standby Assistance,Contact Guard Assistance,1 Person Assistance,Use of Upper Extremities Equipment Transfer Assistive Device None Orthotic/Prosthetic Devices or Brace: No Transfer Ability Level of Assist Contact Guard Assistance,1 Person Assistance,Use of Upper Extremities Comments Mobility Comments Pt with 2L O2 donned at start of gait and increased to 3L O2 with gait d/t desaturation. Pt with O2 sats dropping to 75 % on RA with coughing and O2 sats checked at 1, 1.5, 2 and 3L at rest and then 2L and 3L with gait. Pt's O2 sats drop out of the 90s on 2L with gait and remain in the low 90s on 3L with gait. 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 He will be with her at d/ c. Education about safety with O2 line, benefits of OPPT, nasal breathing and use of O2 (provided by RT) provided during treatment. Her gait is slow and mildly ataxic PT-Balance Assessment Standing Balance and Reactions Static Standing Balance Ability Good Dynamic Standing Balance Ability Fair M5 PT-IP Objective Assessments Start: 08/26/23 11:59 Freq: NEEDED Status: Active Protocol: Document 08/26/23 11:45 MB (Rec: 08/26/23 12:06 MB [id number]) Orientation Orientation/Cognition Level of Alertness Alert Orientation Name,Age,Birthday,Month,Date, Year,Day of Week,Place, Situation Language Function Ability No Deficits Noted Safety Awareness Understands Safety Issues Memory Description No Deficits Noted Gross Range of Motion Upper Extremity ROM Assessment Within Functional Limits Lower Extremity ROM Assessment Within Functional Limits Strength Upper Extremity Strength Assessment Within Functional Limits Lower Extremity Strength Assessment Within Functional Limits M6 PT-IP Treatment Start: 08/26/23 11:59 Freq: NEEDED Status: Active Protocol: Document 08/27/23 15:34 MB (Rec: 08/27/23 15:40 MB [id number]) Physical Therapy Treatment Education Education Provided Safety Other Treatments Other Treatment Performed See comments above as far as education, recommendations, breathing training M7 PT-IP Assessment and Plan Start: 08/26/23 11:59 Freq: NEEDED Status: Active Protocol: Document 08/27/23 15:34 MB (Rec: 08/27/23 15:40 MB [id number]) PT Summary Assessment and Plan Potential Rehabilitation Potential Fair Status of Condition at Evaluation Evolving Summary Impairments Bed Mobility,Transfers,Gait, Activity Tolerance Progress Towards Goals Progressing Toward Goals Assessment Summary Improved gait distance today and it is determined that pt will need O2 at home and up to 3L for mobility at least d/t desaturation. Her HR is high and in the low 100s when she is desating and with activity. Ed in importance of wearing O2 as long as it is prescribed to reduce any strain to her heart. Goals Bed Mobility Goal Independent Transfer Goal Independent Gait Goal Independent Gait Distance 200 Days to Meet Goals 3 Frequency of Treatment Frequency Of Treatment Once a Day Treatment Plan Physical Therapy Treatment Plan Bed Mobility Training,Transfer Training,Gait Training, Therapeutic Exercise,Balance Retraining,Discharge Planning Precautions Other Precautions O2, imbalance Weight Bearing Status Weight Bearing Status Weight Bear as Tolerated Recommendations To Nursing Amount of Assist Needed 1 Person Assist Discharge Recommendations PT Discharge Recommendations Home with Assistance, Outpatient PT Transportation Needs at Discharge Private Vehicle
--- NOTE | 2023-08-27 16:37 | PC.NURSE ---
Discharge Note Patient A&O, VSS, RA, no complaints of pain/discomfort. Discharge packet reviewed with patient, all questions/concerns addressed. PIV discontinued, patient able to dress self and pack all belongings. Teaching done with RT for home O2. 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 Patient taken down via wheelchair to POV.
== END 2023-08-27 16:15 | disposition home or self-care (01) | DRG 193 ==
LOC: ED 12:47 → AC 14:18
PROVIDERS: Student in an Organized Health Care Education/Training Program; Admitting Provider Hospitalist; Emergency Provider Emergency Medicine; PCP Internal Medicine; Referring Provider Emergency Medicine; Visit Provider Hospitalist
DX: J18.9 Pneumonia, unspecified organism (principal); J96.21 Acute and chronic respiratory failure with hypoxia; N13.30 Unspecified hydronephrosis; N39.0 Urinary tract infection, site not specified; D64.9 Anemia, unspecified; D72.819 Decreased white blood cell count, unspecified; E78.5 Hyperlipidemia, unspecified; E03.9 Hypothyroidism, unspecified; B96.20 Unspecified Escherichia coli [E. coli] as the cause of diseases classified elsewhere; Z79.01 Long term (current) use of anticoagulants; Z86.16 Personal history of COVID-19; Z86.718 Personal history of other venous thrombosis and embolism
CPT/HCPCS: 36415; 36430; 71045; 80048; 80053; 80202; 81001; 81003; 83605; 83690; 83735; 84145; 85007; 85025; 85610; 85730; 86850; 86900; 86901; 87040; 87077; 87086; 87186; 87633; 87797; 93005; 93010; 94618; 94760; 96365; 96375; 97116; 97161; 97530; 99284; 99285; P9016; J0692; J2405; J3475

== ENCOUNTER → 2024-02-18 14:36 | Outpatient (CLI) | payer MEDICARE, SELFPAY ==
[2023-08-29 15:19] VITALS: BMI 25.4
--- NOTE | 2024-02-18 14:38 | DI.US.S_ITS ---
PROCEDURE: US PERIP VENOUS LOW EXTREM RT INDICATIONS: EDEMA RT LOWER LEG / please evaluate for DVT TECHNIQUE: Real-time imaging, as well as color and pulse Doppler interrogation, were performed of the lower extremity deep veins from the inguinal ligament to the popliteal fossa, with documentation of the visualized calf veins. COMPARISON: [facility], [facility] VENOUS LOW EXTREM BI, 08/10/2023, 7:36. [facility], PERIP VENOUS LOW EXTREM RT, 04/27/2023, 9:30. FINDINGS: The femoral vein is occluded proximally to distally. Nonocclusive thrombus can be seen within the right popliteal vein. IMPRESSION: Extensive right lower extremity deep venous thrombosis can be seen. Note: Concordant preliminary findings given by the insurance advisor upon the completion of the examination to Dr. Johns at 3:30 p.m. on February 18, 2024. Dictated by: Misael Blake M.D. on 02/18/2024 at 15:03 Approved by: Misael Blake M.D. on 02/18/2024 at 15:05
== END ==
LOC: US 14:37
PROVIDERS: PCP Internal Medicine
DX: I82.411 Acute embolism and thrombosis of right femoral vein (principal); I82.431 Acute embolism and thrombosis of right popliteal vein; R60.0 Localized edema
CPT/HCPCS: 93971

== ENCOUNTER 2024-03-06 13:25 | Emergency (ER) | payer MEDICARE, SELFPAY ==
[2023-08-29 15:19] VITALS: BMI 25.4
[2024-03-06 13:30] VITALS: BP 107/68; PULSE 90; RESP 14; TEMP 36.2; O2SAT 95; BMI 25.0
--- NOTE | 2024-03-06 15:04 | ED.BACK ---
HPI - Back Pain/Injury General Chief Complaint: Back Pain/Injury Stated Complaint: back pain, poss blood clot in leg Time Seen by Provider: 03/06/24 15:00 Source: patient History of Present Illness HPI Narrative: Patient is a 73-year-old female history of leukemia current on chemotherapy and current DVT on Eliquis, chronic back pain with worsening right-sided pain. She reports that she has been having some back issues on the right side. She reports that she went to a chiropractor yesterday she had adjusted now her pain is even worse. She has numbness tingling radiating around to her right thigh. She has no weakness she has no changes in bowel or bladder habits. She took oxycodone without any relief. She has been taking Tylenol PM to try and sleep. She is gabapentin at home but no longer taking it. She is also currently already on prednisone 15 mg once a day. She has no spinal bony tenderness. Related Data Home Medications Medication Instructions Recorded Confirmed apixaban 5 mg tablet (Eliquis) 5 mg PO BID 09/03/23 02/14/24 doxycycline hyclate 100 mg tablet 100 mg PO BID 09/03/23 02/14/24 acyclovir 800 mg tablet 800 mg PO BID PRN 12/06/23 02/14/24 atovaquone 750 mg/5 mL oral 75 mg PO BID PRN 12/06/23 02/14/24 suspension levofloxacin 750 mg tablet 750 mg PO DAILY 12/06/23 02/14/24 omeprazole 20 mg capsule,delayed 20 mg PO DAILY 12/06/23 02/14/24 release ondansetron HCl 8 mg tablet 8 mg PO Q8-12H 12/06/23 02/14/24 oxycodone 5 mg tablet 5 mg PO BID PRN 12/06/23 02/14/24 potassium chloride 20 mEq 20 meq PO BID 12/06/23 02/14/24 tablet,extended release(part/cryst) pravastatin 80 mg tablet 80 mg PO DAILY 12/06/23 02/14/24 prednisone 20 mg tablet 60 mg PO DAILY 12/06/23 02/14/24 prochlorperazine maleate 10 mg 10 mg PO BID PRN 12/06/23 02/14/24 tablet voriconazole 50 mg tablet 100 mg PO DAILY 12/06/23 02/14/24 Previous Rx's Medication Instructions Recorded levothyroxine 100 mcg tablet 100 mcg PO DAILY #90 tabs 07/26/23 Disabled Parking Permit 1 ea Not Applicable DAILY #1 ea 12/06/23 lidocaine 5 % topical ointment 1 applic topical Q4HR PRN pain #50 03/06/24 grams Allergies Allergy/AdvReac Type Severity Reaction Status Date / Time bacitracin Allergy Mild Blister Verified 03/06/24 13:30 [From Polysporin(bacitracin base)] neomycin Allergy Mild Blister Verified 03/06/24 13:30 [From Neosporin ([id number])] polymyxin B Allergy Mild Blister Verified 03/06/24 13:30 [From Polysporin(bacitracin base)] sulfamethoxazole Allergy Verified 03/06/24 13:30 [From Bactrim] trimethoprim [From Bactrim] Allergy Verified 03/06/24 13:30 Patient History Medical History Urethral prolapse Pyoderma gangrenosum Drug-induced adrenocortical insufficiency Acute hypoxic respiratory failure Acute myelogenous leukemia Trigger finger, right ring finger Post-COVID syndrome DVT (deep venous thrombosis) Eczematous dermatitis Overweight Osteopenia Family history of melanoma Personal history of malignant melanoma Family history of colon cancer BPPV (benign paroxysmal positional vertigo) Urinary incontinence Chronic insomnia Irritable bowel syndrome with diarrhea GERD without esophagitis Impaired fasting glucose Acquired hypothyroidism Mixed hyperlipidemia History of traumatic brain injury Actinic keratosis (~1999) Mumps Measles (~1953) Chicken pox (~1951) Tinnitus (~2007) Thyroid nodule (~1980) Skin cancer (~1999) Melanoma (~2019) Surgical History Anesthesia History of varicose vein stripping (~1985) History of thyroidectomy (~1975) History of hysterectomy (~2010) Family History Father Cancer Mother Cancer Brother Cancer Grandfather Diabetes mellitus Grandmother Cancer Social History details: (Juan), four daughters household members: spouse Smoking Status: Never smoker alcohol intake: current Smoking Status: Never smoker alcohol intake frequency: 0-2 drinks per day Substance Use Type: does not use Exam Initial Vital Signs Initial Vital Signs: Vital Signs Temperature 97.1 F L 03/06/24 13:30 Pulse Rate 90 03/06/24 13:30 Respiratory Rate 14 03/06/24 13:30 Blood Pressure 107/68 03/06/24 13:30 Pulse Oximetry 95 03/06/24 13:30 Oxygen Delivery Method Room Air 03/06/24 13:30 GENERAL: Alert 73-year-old female appears to not feel well CARDIOVASCULAR: peripheral pulses in tact, cap refill <2 sec RESPIRATORY: No respiratory distress, speaks in full sentences without difficulty BACK: No vertebral tenderness no step-offs no iliac crest pain EXTREMITIES: Normal range of motion, no clubbing or edema. Neurovascularly intact NEUROLOGICAL: Cranial nerves II through XII grossly intact. Normal gait and speech. Lower extremity strength equal sensation equal SKIN: Warm, dry, no petechiae, no rashes or lesions. Course Orders Ordered: Discontinued Medications Hydromorphone HCl (Hydromorphone 1 Mg Inj) 1 mg SUBCUT NOW ONE Stop: 03/06/24 15:19 Last Admin: 03/06/24 15:30 Dose: 1 mg Documented By: JANES Vital Signs Vital signs: Vital Signs - 8 hr 03/06/24 13:30 03/06/24 15:50 Temperature 97.1 F L Pulse Rate 90 94 H Respiratory Rate 14 18 Blood Pressure 107/68 110/66 Pulse Oximetry 95 95 Oxygen Delivery Method Room Air Room Air MDM - Back Pain/Injury MDM Narrative Medical decision making narrative: Patient is a 73-year-old female who has current leukemia current DVT presenting today with worsening right-sided sciatic pain. She has had sciatic pain previously. She does not have any bony tenderness although I did discuss with both patient and possible need for x-ray however it sounds like they both do not really want an x-ray at this time. I have low suspicion for metastatic disease although still possible. We discussed pain management. No cauda equina red flag symptoms Discharge Plan Departure Patient Disposition: Home Clinical Impression: Sciatica Instructions: DI for Sciatica Activity Restrictions/Additional Instructions: *You have been diagnosed with sciatic pain *What to do: Ms. Time I recommend heat and light stretching. You can try CBD cream or arnica cream to rub on topically as well. You may require imaging such as an x-ray or CT scan to rule out any sort of further cancer issue *Continue to take medications as directed Tylenol 1000 mg every 6 hours for [id number] pain Oxycodone 5-10 mg every 6 hours for severe pain and at nighttime for sleep Gabapentin 300 mg at night Lidocaine patch for 12 hours at a time then removed *Follow up with your primary care provider in 2-3 days or call [phone] *Return to ER if you should have increasing leg weakness loss of urine loss of bowel or any new, worsening or concerning symptoms Prescriptions: New lidocaine 5 % ointment 1 applic topical Q4HR PRN (Reason: pain) Qty: 50 0RF No Action levothyroxine 100 mcg tablet 100 mcg PO DAILY Qty: 90 3RF Eliquis 5 mg tablet 5 mg PO BID doxycycline hyclate 100 mg tablet 100 mg PO BID potassium chloride 20 mEq tablet,ER particles/crystals 20 meq PO BID pravastatin 80 mg tablet 80 mg PO DAILY omeprazole 20 mg capsule,delayed release(DR/EC) 20 mg PO DAILY levofloxacin 750 mg tablet 750 mg PO DAILY acyclovir 800 mg tablet 800 mg PO BID PRN atovaquone 750 mg/5 mL suspension 75 mg PO BID PRN ondansetron HCl 8 mg tablet 8 mg PO Q8-12H oxycodone 5 mg tablet 5 mg PO BID PRN prochlorperazine maleate 10 mg tablet 10 mg PO BID PRN voriconazole 50 mg tablet 100 mg PO DAILY Disabled Parking Permit 1 ea Not Applicable DAILY Qty: 1 0RF prednisone 20 mg tablet 60 mg PO DAILY Referrals: Grabiel Montoya MD [Primary Care Provider] - Stand Alone Forms: Patient Portal/API
[2024-03-06] MEDS: HYDROMORPHONE 1 MG INJ SUBCUT (15:30)
[2024-03-06 15:50] VITALS: BP 110/66; PULSE 94; RESP 18; O2SAT 95
== END 2024-03-06 15:53 | disposition home or self-care (01) ==
PROVIDERS: Emergency Provider Emergency Medicine; PCP Internal Medicine
DX: M54.31 Sciatica, right side (principal); Z79.01 Long term (current) use of anticoagulants
CPT/HCPCS: J1170

== ENCOUNTER 2024-03-06 19:19 | Emergency (ER) | payer MEDICARE, SELFPAY ==
[2023-08-29 15:19] VITALS: BMI 25.4
[2024-03-06] VITALS (8 sets, daily range): BP systolic 120–134; BP diastolic 60–78; PULSE 67–102; RESP 12–18; TEMP 36.7–36.9; O2SAT 90–98; BMI 25.0
--- NOTE | 2024-03-06 19:47 | ED_ITS ---
HPI - Recheck/Abnormal Lab/Rx General Chief Complaint: Recheck/Abnormal Lab/Rx Stated Complaint: back pain, meds are not working Time Seen by Provider: 03/06/24 19:28 Source: patient Mode of arrival: Ambulatory History of Present Illness HPI narrative: Patient is a 73-year-old female. She was on anticoagulation secondary to a DVT. She has a history of leukemia (AML). She was currently receiving chemotherapy. Her last dose of chemotherapy was earlier this week. She thinks she has been sleeping wrong on her mattress and woke up earlier today with fairly extensive right lower back discomfort. No urinary symptoms. No change in bowel habits. No fevers. States she went to the chiropractor which made her symptoms worse. She does have oxycodone at home and this did not help her symptoms. She was currently on steroids for a lesion on her left lower leg. The steroids have not been helping. She came here to the emergency department earlier today. Received pain medications. Stated that it potentially help for short period of time but she continues to have discomfort that is uncontrolled. Related Data Home Medications Medication Instructions Recorded Confirmed apixaban 5 mg tablet (Eliquis) 5 mg PO BID 09/03/23 02/14/24 doxycycline hyclate 100 mg tablet 100 mg PO BID 09/03/23 02/14/24 acyclovir 800 mg tablet 800 mg PO BID PRN 12/06/23 02/14/24 atovaquone 750 mg/5 mL oral 75 mg PO BID PRN 12/06/23 02/14/24 suspension levofloxacin 750 mg tablet 750 mg PO DAILY 12/06/23 02/14/24 omeprazole 20 mg capsule,delayed 20 mg PO DAILY 12/06/23 02/14/24 release ondansetron HCl 8 mg tablet 8 mg PO Q8-12H 12/06/23 02/14/24 oxycodone 5 mg tablet 5 mg PO BID PRN 12/06/23 02/14/24 potassium chloride 20 mEq 20 meq PO BID 12/06/23 02/14/24 tablet,extended release(part/cryst) pravastatin 80 mg tablet 80 mg PO DAILY 12/06/23 02/14/24 prednisone 20 mg tablet 60 mg PO DAILY 12/06/23 02/14/24 prochlorperazine maleate 10 mg 10 mg PO BID PRN 12/06/23 02/14/24 tablet voriconazole 50 mg tablet 100 mg PO DAILY 12/06/23 02/14/24 Previous Rx's Medication Instructions Recorded levothyroxine 100 mcg tablet 100 mcg PO DAILY #90 tabs 07/26/23 Disabled Parking Permit 1 ea Not Applicable DAILY #1 ea 12/06/23 hydromorphone 2 mg tablet 2 mg PO Q6H PRN pain #14 tabs 03/06/24 (Dilaudid) lidocaine 5 % topical ointment 1 applic topical Q4HR PRN pain #50 03/06/24 grams Allergies Allergy/AdvReac Type Severity Reaction Status Date / Time bacitracin Allergy Mild Blister Verified 03/06/24 19:31 [From Polysporin(bacitracin base)] neomycin Allergy Mild Blister Verified 03/06/24 19:31 [From Neosporin ([id number])] polymyxin B Allergy Mild Blister Verified 03/06/24 19:31 [From Polysporin(bacitracin base)] sulfamethoxazole Allergy Verified 03/06/24 19:31 [From Bactrim] trimethoprim [From Bactrim] Allergy Verified 03/06/24 19:31 Review of Systems Review of Systems ROS Unobtainable: All systems reviewed & are unremarkable except as noted in HPI and below Patient History Medical History Urethral prolapse Pyoderma gangrenosum Drug-induced adrenocortical insufficiency Acute hypoxic respiratory failure Acute myelogenous leukemia Trigger finger, right ring finger Post-COVID syndrome DVT (deep venous thrombosis) Eczematous dermatitis Overweight Osteopenia Family history of melanoma Personal history of malignant melanoma Family history of colon cancer BPPV (benign paroxysmal positional vertigo) Urinary incontinence Chronic insomnia Irritable bowel syndrome with diarrhea GERD without esophagitis Impaired fasting glucose Acquired hypothyroidism Mixed hyperlipidemia History of traumatic brain injury Actinic keratosis (~1999) Mumps Measles (~1953) Chicken pox (~1951) Tinnitus (~2007) Thyroid nodule (~1980) Skin cancer (~1999) Melanoma (~2018) Surgical History Anesthesia History of varicose vein stripping (~1985) History of thyroidectomy (~1975) History of hysterectomy (~2010) Family History Father Cancer Mother Cancer Brother Cancer Grandfather Diabetes mellitus Grandmother Cancer Social History details: (Juan), four daughters household members: spouse Smoking Status: Never smoker alcohol intake: current Smoking Status: Never smoker alcohol intake frequency: 0-2 drinks per day Substance Use Type: does not use Exam Initial Vital Signs Initial Vital Signs: Vital Signs Temperature 98.0 F 03/06/24 19:28 Pulse Rate 102 H 03/06/24 19:28 Respiratory Rate 12 03/06/24 19:28 Blood Pressure 126/73 03/06/24 19:28 Pulse Oximetry 96 03/06/24 19:28 Oxygen Delivery Method Room Air 03/06/24 19:28 HENMT Head: normal to inspection Resp Effort & Inspection: normal respiratory effort Cardio Rate: regular rate Extrem Other: No gross deformities Course Orders Ordered: ED Orders 03/06/24 19:47 MR lumbar spine wo/w con Stat 03/06/24 20:45 Basic Metabolic Panel Stat Complete Blood Count AUTO DIFF Stat Discontinued Medications Hydromorphone HCl (Hydromorphone 1 Mg Inj) 1 mg IV NOW ONE Stop: 03/06/24 19:48 Last Admin: 03/06/24 20:01 Dose: 1 mg Documented By: Vital Signs Vital signs: Vital Signs - 8 hr 03/06/24 20:44 03/06/24 20:44 03/06/24 21:00 Temperature Pulse Rate 97 H 95 H Respiratory Rate Blood Pressure 134/70 Pulse Oximetry 90 L 90 L Oxygen Delivery Method Room Air 03/06/24 21:01 03/06/24 21:01 03/06/24 21:30 Temperature Pulse Rate 95 H 96 H Respiratory Rate Blood Pressure 128/66 Pulse Oximetry 90 L 93 Oxygen Delivery Method 03/06/24 21:30 03/06/24 22:00 03/06/24 22:00 Temperature Pulse Rate 96 H Respiratory Rate Blood Pressure 131/60 126/72 Pulse Oximetry 94 Oxygen Delivery Method 03/06/24 22:22 Temperature 98.4 F Pulse Rate 67 Respiratory Rate 18 Blood Pressure 120/78 Pulse Oximetry 98 Oxygen Delivery Method Room Air MDM - Recheck/Abnormal Lab/Rx Medical Records Attestation: I reviewed the patient's medical records. Lab Data Attestation: I reviewed the patient's lab results. 03/06/24 20:45 03/06/24 20:45 Labs: Lab Results 03/06/24 Range/Units 20:45 WBC 1.1 L* (4.5-11.0) X10^3/uL RBC 2.74 L (4.0-5.2) X10^6/uL Hgb 10.1 L (12.0-16.0) g/dL Hct 30.2 L (36-46) % MCV 110.3 H (80-100) fL MCH 37.0 H (26-34) PG MCHC 33.5 (30-36) % RDW 29.6 H (11.6-14.8) % Plt Count 206 (150-400) X10^3/uL Neut % (Auto) Not Reportable Lymph % (Auto) Not Reportable [place] % (Auto) Not Reportable Eos % (Auto) Not Reportable Baso % (Auto) Not Reportable Lymph # (Auto) Not Reportable [place] # (Auto) Not Reportable Baso # (Auto) Not Reportable Total Counted 50 Seg Neutrophils % 34.0 L (38-70) % Lymphocytes % (Manual) 52.0 H (25-45) % Atypical Lymphs % 6.0 H ( - 0) % Monocytes % (Manual) 6.0 (2-11) % Eosinophils % (Manual) 2.0 (2-4) % Neutrophils # (Manual) 374 L (1004-1254) /uL RBC Morphology See below Anisocytosis 3+ H Microcytosis 1+ H Macrocytosis 1+ H Sodium 134 L (137-145) mmol/L Potassium 4.7 (3.4-5.1) mmol/L Chloride 104 (98-107) mmol/L Carbon Dioxide 24 (22-32) mmol/L BUN 14 (7-17) mg/dL Creatinine 0.46 L (0.52-1.04) mg/dL Estimated GFR > 60 (>60) mL/min BUN/Creatinine Ratio 30.4 H (6-22) Glucose 107 (80-110) mg/dL Calcium 8.8 (8.4-10.2) mg/dL Imaging Data lumbar MRI: Radiologist's Impression: PROCEDURE: MR LUMBAR SPINE WO/W CON INDICATIONS: Leukemia on anticoagulation eval for hematoma TECHNIQUE: Noncontrast sagittal T1 spin echo and T2 fast spin echo, sagittal STIR, axial T1 and T2 fast spin echo through the lumbar spine. In cases with scoliosis, additional coronal T2 fast spin echo may be performed. After the administration of contrast, sagittal and axial T1 spin echo with fat saturation through the lumbar spine. COMPARISON: None. FINDINGS: Image quality: Excellent. Alignment and curvature: There is normal bony alignment. Marrow: Marrow is of normal overall signal. No acute vertebral body compression fractures. No suspicious marrow enhancement. Spinal cord: Conus medullaris terminates at the L1 level. Visualized spinal cord demonstrates normal signal, without suspicious enhancement. Paraspinous soft tissues: No paravertebral masses or abnormal enhancement. Partially visualized 4.6 centimeter right adnexal cystic lesion without perceived complexity (series 5, image 35). T12-L1: Normal appearance. L1-L2: Disc desiccation with trace joint effusions. L2-L3: Broad-based disc bulge with superimposed central to right subarticular extrusion, with superimposed extrusion in the right neural foramen (series 5, image 14) this sequestration contacts the exiting left L2 nerve root. Associated moderate spinal canal narrowing. Facet hypertrophy. L3-L4: Broad-based disc bulge, facet hypertrophy, ligamentum flavum hypertrophy. Mild spinal canal narrowing. Mild left neural foraminal narrowing. L4-L5: Broad-based disc bulge, facet hypertrophy, mild bilateral neural foraminal narrowing. L5-S1: Broad-based disc bulge, facet hypertrophy. IMPRESSION: Multilevel degenerative disc disease and facet arthrosis. Of note: Sequestration in the right neural foramen L2-3, contacting the exiting nerve root. Moderate spinal canal narrowing at L2-3. No intraspinal hematoma. Partially visualized right adnexal cystic lesion measuring 4.6 centimeters. Recommend nonurgent pelvic ultrasound for complete characterization. MDM Narrative Medical decision making narrative: After pain medications here in the ER today during this visit she states her symptoms are greatly improved. I had a long discussion with her regarding her lower back discomfort. She denied any specific trauma although her symptoms did get worse after going to a chiropractor. Given the fact that she was on anticoagulation, currently undergoing chemotherapy, has a history of leukemia, is on prednisone and symptoms worsened after chiropractic I do feel that an MRI is warranted to further evaluate for hematoma, abscess, fracture, metastasis. Patient agrees. Lumbar spine MRI is relatively unremarkable. No emergent condition found on the MRI. Given the fact that she was now much improved with her symptoms will discharge home. Will have her continue all of her home medications. We will give her a prescription for oral Dilaudid that she can use as needed if her symptoms worsen like with the like earlier today. She was given return precautions and follow-up instructions. She expressed understanding and agreement with the plan. Discharge Plan Departure Patient Disposition: Home Clinical Impression: Lower back pain Activity Restrictions/Additional Instructions: Continue to take all of your medications as directed. Return to the emergency department for new or worsening symptoms. Prescriptions: New hydromorphone [Dilaudid] 2 mg tablet 2 mg PO Q6H PRN (Reason: pain) Qty: 14 0RF No Action levothyroxine 100 mcg tablet 100 mcg PO DAILY Qty: 90 3RF Eliquis 5 mg tablet 5 mg PO BID doxycycline hyclate 100 mg tablet 100 mg PO BID potassium chloride 20 mEq tablet,ER particles/crystals 20 meq PO BID pravastatin 80 mg tablet 80 mg PO DAILY omeprazole 20 mg capsule,delayed release(DR/EC) 20 mg PO DAILY levofloxacin 750 mg tablet 750 mg PO DAILY acyclovir 800 mg tablet 800 mg PO BID PRN atovaquone 750 mg/5 mL suspension 75 mg PO BID PRN ondansetron HCl 8 mg tablet 8 mg PO Q8-12H oxycodone 5 mg tablet 5 mg PO BID PRN prochlorperazine maleate 10 mg tablet 10 mg PO BID PRN voriconazole 50 mg tablet 100 mg PO DAILY Disabled Parking Permit 1 ea Not Applicable DAILY Qty: 1 0RF prednisone 20 mg tablet 60 mg PO DAILY lidocaine 5 % ointment 1 applic topical Q4HR PRN (Reason: pain) Qty: 50 0RF Referrals: Grabiel Montoya MD [Primary Care Provider] - Stand Alone Forms: Patient Portal/API
[2024-03-06] MEDS: HYDROMORPHONE 1 MG INJ IV (20:01)
[2024-03-06 21:09] LABS: Hematocrit 30.2 % (36-46); Hemoglobin 10.1 g/dL (12.0-16.0); Mean Corpuscular HGB Conc 33.5 % (30-36); Mean Corpuscular Volume 110.3 fL (80-100); Platelet Count 206 X10^3/uL (150-400); Red Blood Cell Count 2.74 X10^6/uL (4.0-5.2); Red Cell Distribution Width 29.6 % (11.6-14.8)
[2024-03-06 21:12] LABS: Add Manual Diff / Slide Review YES; White Blood Cell Count 1.1 X10^3/uL (4.5-11.0)
[2024-03-06 21:15] LABS: BUN Creatinine Ratio 30.4 (6-22); Blood Urea Nitrogen 14 mg/dL (7-17); Calcium 8.8 mg/dL (8.4-10.2); Carbon Dioxide 24 mmol/L (22-32); Chloride 104 mmol/L (98-107); Estimated Glomerular Filt Rate > 60 mL/min (>60); Glucose 107 mg/dL (80-110); HEMOLYSIS < 15 (0-50); Potassium 4.7 mmol/L (3.4-5.1); Sodium 134 mmol/L (137-145)
[2024-03-06 21:42] LABS: Neutrophils Absolute Manual 374 /uL (3000-5900); Total Cells Counted 50
[2024-03-06 21:43] LABS: Anisocytosis 3+; Macrocytosis 1+; Microcytosis 1+
== END 2024-03-06 22:24 | disposition home or self-care (01) ==
PROVIDERS: Emergency Provider Emergency Medicine; PCP Internal Medicine
DX: M54.50 Low back pain, unspecified (principal); M54.31 Sciatica, right side; Z79.01 Long term (current) use of anticoagulants; C92.00 Acute myeloblastic leukemia, not having achieved remission
CPT/HCPCS: 36415; 72158; 80048; 85007; 85025; 96372; 96374; 99281; 99283; 99284; A9579; J1170

== ENCOUNTER → 2024-04-08 09:55 | Outpatient (CLI) | payer MEDICARE, SELFPAY ==
[2023-08-29 15:19] VITALS: BMI 25.4
--- NOTE | 2024-04-08 09:56 | DI.US.S_ITS ---
PROCEDURE: US PELVIC COMPLETE INDICATIONS: right adnexal mass TECHNIQUE: Real-time scanning was performed of the pelvic organs, with image documentation. Additional endovaginal scanning was necessary due to incomplete visualization of the adnexal and endometrial structures by transabdominal scanning. COMPARISON: None. FINDINGS: Uterus: Uterus is absent. There is a 6.4 x 4.2 x 5.5 cm focus of decreased echogenicity with what appears to be internal debris near the vaginal cuff. No priors. Ovaries: The ovaries are not visualized. Adnexal regions are unremarkable. Other: No pathologic free abdominal or pelvic fluid. IMPRESSION: Complex focus of echogenicity near the vaginal cuff status post hysterectomy. This could represent a seroma or other postoperative complex cyst. No priors are available for comparison. In addition, this also could represent a prominent ovarian/adnexal cyst. However, ovaries are not visualized. Further evaluation with short interval ultrasound follow-up or MRI with DAMPPROOFER protocol is recommended to definitively exclude malignancy. We strive to produce accurate, complete, and clear reports of imaging services. To assist us in improving patient care, this report was composed using standard report templates and voice recognition software. Therefore, it may contain abnormal punctuation, insertions and/or omissions. Occasional wrong-word or sound-alike substitutions may occur. Though we review the report and make efforts to correct it, we do recommend that the report be read carefully in proper context to recognize any text inaccuracies. Dictated by: Shoshana Her M.D. on 04/08/2024 at 17:30 Approved by: Shoshana Her M.D. on 04/08/2024 at 17:32
--- NOTE | 2024-04-08 09:56 | DI.MG.S_ITS ---
BILATERAL DIGITAL SCREENING MAMMOGRAM 3D/2D WITH CAD: 04/08/2024 CLINICAL: Routine screening. Family history of breast cancer. Comparison is made to exams dated: 09/07/2022 mammogram, 08/19/2021 mammogram, and 08/18/2020 mammogram - [facility]. The breasts are heterogeneously dense, which may obscure small masses (category c / 51-75% glandular tissue). Current study was also evaluated with a Computer Aided Detection (CAD) system. There are benign calcifications in both breasts. No significant masses, calcifications, or other findings are seen in either breast. There has been no significant interval change. IMPRESSION: BENIGN There is no mammographic evidence of malignancy. A 1 year screening mammogram is recommended. Based on the Tyrer Cuzick model (a risk assessment model) the patient's lifetime risk is 7.1% and her 10 year risk is 7.1%. According to the ACR, ACS, and NCCN guidelines, an annual breast MRI exam along with mammogram is recommended if the patient's lifetime risk is 20% or greater. This exam was interpreted at Station ID: [id number]. NOTE: For mammograms, a report in lay terms will be sent to the patient. Approximately 15% of breast malignancies will not be visualized mammographically. In the management of a palpable breast mass, a negative mammogram must not discourage biopsy of a clinically suspicious lesion. Electronically Signed By: Woody garza/ulysses:04/08/2024 12:29:42 letter sent: Normal Exam ACR BI-RADS Category 2: Benign
== END ==
PROVIDERS: PCP Internal Medicine; Referring Provider Internal Medicine; Visit Provider Internal Medicine
DX: Z12.31 Encounter for screening mammogram for malignant neoplasm of breast (principal); Z80.3 Family history of malignant neoplasm of breast; R92.333 Mammographic heterogeneous density, bilateral breasts; N94.89 Other specified conditions associated with female genital organs and menstrual cycle; Z90.710 Acquired absence of both cervix and uterus
CPT/HCPCS: 76856; 77063; 77067

== ENCOUNTER 2024-05-23 09:13 | Emergency (ER) | payer MEDICARE, SELFPAY ==
[2023-08-29 15:19] VITALS: BMI 25.4
[2024-05-23] VITALS (17 sets, daily range): BP systolic 108–168; BP diastolic 56–120; PULSE 99–112; RESP 19–26; TEMP 36.9; O2SAT 85–97; BMI 26.6
--- NOTE | 2024-05-23 09:36 | ED_ITS ---
HPI - Headache General Chief Complaint: Headache Stated Complaint: headache Time Seen by Provider: 05/23/24 09:24 Source: patient Mode of arrival: Ambulatory Limitations: no limitations History of Present Illness HPI Narrative: Patient is a 74-year-old female. Has a history of AML. Is currently undergoing treatment for this. Is here for evaluation of 7 days of a left-sided headache. She does not remember what he was doing when the headache 1st started. It has been persistent for the past 7 days. She states that Tylenol does seem to help her headache and it improves for several hours but then returns again. No fevers. Has had a runny nose. No sore throat. She saw her oncologist 2 days ago because of the headache. She stated that they evaluated her ears. Told her that everything was okay. I informed her that if the Tylenol was helping they would not recommend any further workup. She states that her symptoms have been persistent and so when she called them again this morning they were advised to come to the emergency department for further evaluation. Related Data Home Medications Medication Instructions Recorded Confirmed apixaban 5 mg tablet (Eliquis) 5 mg PO BID 09/03/23 05/07/24 doxycycline hyclate 100 mg tablet 100 mg PO BID 09/03/23 05/07/24 acyclovir 800 mg tablet 800 mg PO BID PRN 12/06/23 05/07/24 atovaquone 750 mg/5 mL oral 75 mg PO BID PRN 12/06/23 05/07/24 suspension levofloxacin 750 mg tablet 750 mg PO DAILY 12/06/23 05/07/24 omeprazole 20 mg capsule,delayed 20 mg PO DAILY 12/06/23 05/07/24 release ondansetron HCl 8 mg tablet 8 mg PO Q8-12H 12/06/23 05/07/24 oxycodone 5 mg tablet 5 mg PO BID PRN 12/06/23 05/07/24 potassium chloride 20 mEq 20 meq PO BID 12/06/23 05/07/24 tablet,extended release(part/cryst) pravastatin 80 mg tablet 80 mg PO DAILY 12/06/23 05/07/24 prochlorperazine maleate 10 mg 10 mg PO BID PRN 12/06/23 05/07/24 tablet voriconazole 50 mg tablet 100 mg PO DAILY 12/06/23 05/07/24 prednisone 20 mg tablet 10 mg PO DAILY 03/12/24 05/07/24 Previous Rx's Medication Instructions Recorded levothyroxine 100 mcg tablet 100 mcg PO DAILY #90 tabs 07/26/23 Disabled Parking Permit 1 ea Not Applicable DAILY #1 ea 12/06/23 lidocaine 5 % topical ointment 1 applic topical Q4HR PRN pain #50 03/06/24 grams gabapentin 300 mg capsule 300 mg PO TID #90 caps 03/12/24 hydromorphone 2 mg tablet 2 mg PO Q6H PRN pain #30 tabs 03/12/24 (Dilaudid) prednisone 10 mg tablet See Rx Instructions .Route 03/12/24 .COMPLEX #20 tabs hydromorphone 2 mg tablet 2 mg PO Q4H PRN pain #14 tabs 05/23/24 (Dilaudid) meclizine 25 mg tablet 25 mg PO BID PRN dizziness #20 tabs 05/23/24 ondansetron 4 mg disintegrating 4 mg PO Q6H PRN nausea and 05/23/24 tablet vomiting #14 tabs Allergies Allergy/AdvReac Type Severity Reaction Status Date / Time bacitracin Allergy Mild Blister Verified 05/07/24 16:16 [From Polysporin(bacitracin base)] neomycin Allergy Mild Blister Verified 05/07/24 16:16 [From Neosporin ([id number])] polymyxin B Allergy Mild Blister Verified 05/07/24 16:16 [From Polysporin(bacitracin base)] chlorhexidine Allergy Verified 05/23/24 09:24 sulfamethoxazole Allergy Verified 05/07/24 16:16 [From Bactrim] trimethoprim [From Bactrim] Allergy Verified 05/07/24 16:16 Review of Systems Review of Systems ROS Unobtainable: All systems reviewed & are unremarkable except as noted in HPI and below Patient History Medical History Adnexal mass Urethral prolapse Pyoderma gangrenosum Drug-induced adrenocortical insufficiency Acute hypoxic respiratory failure Acute myelogenous leukemia Trigger finger, right ring finger Post-COVID syndrome DVT (deep venous thrombosis) Eczematous dermatitis Osteopenia Family history of melanoma Personal history of malignant melanoma Family history of colon cancer BPPV (benign paroxysmal positional vertigo) Urinary incontinence Chronic insomnia Irritable bowel syndrome with diarrhea GERD without esophagitis Impaired fasting glucose Acquired hypothyroidism Mixed hyperlipidemia History of traumatic brain injury Actinic keratosis (~1999) Mumps Measles (~1953) Chicken pox (~1951) Tinnitus (~2007) Thyroid nodule (~1980) Skin cancer (~1999) Melanoma (~2018) Surgical History Anesthesia History of varicose vein stripping (~1985) History of thyroidectomy (~1975) History of hysterectomy (~2010) Family History Father Cancer Mother Cancer Brother Cancer Grandfather Diabetes mellitus Grandmother Cancer Social History details: (Juan), four daughters household members: spouse Smoking Status: Never smoker alcohol intake: current Smoking Status: Never smoker alcohol intake frequency: 0-2 drinks per day Substance Use Type: does not use Exam Initial Vital Signs Initial Vital Signs: Vital Signs Pulse Rate 108 H 05/23/24 09:20 Pulse Oximetry 92 05/23/24 09:20 Const General: cooperative and comfortable HENMT Head: normal to inspection and normocephalic Resp Effort & Inspection: normal respiratory effort Cardio Rate: regular rate GI Inspection: normal to inspection and non-distended Skin General: no rashes or lesions noted Neuro General: patient alert, patient awake and moves all extremities Extrem General: normal to inspection and capillary refill normal Course Orders Ordered: ED Orders 05/23/24 09:36 CT head/brain wo con Stat 05/23/24 09:50 Complete Blood Count AUTO DIFF Stat Comprehensive Metabolic Panel Stat Lipase Stat 05/23/24 13:20 MR stroke Stat Discontinued Medications Diphenhydramine HCl (Diphenhydramine 50 Mg/Ml Vial) 25 mg IV NOW ONE Stop: 05/23/24 09:37 Last Admin: 05/23/24 09:52 Dose: 25 mg Documented By: ARTHUR Hydromorphone HCl (Hydromorphone 0.5 Mg Inj) 0.5 mg IV NOW ONE Stop: 05/23/24 10:54 Last Admin: 05/23/24 10:57 Dose: 0.5 mg Documented By: ARTHUR Metoclopramide HCl (Metoclopramide 10 Mg/2 Ml Inj) 10 mg IV NOW ONE Stop: 05/23/24 09:37 Last Admin: 05/23/24 09:51 Dose: 10 mg Documented By: ARTHUR Vital Signs Vital signs: Vital Signs - 8 hr 05/23/24 09:20 05/23/24 09:24 05/23/24 09:30 Temperature 98.4 F Pulse Rate 108 H 109 H Respiratory Rate 19 Blood Pressure 145/73 H 130/68 Pulse Oximetry 92 93 Oxygen Delivery Method Room Air Oxygen Flow Rate 05/23/24 09:30 05/23/24 10:00 05/23/24 10:30 Temperature Pulse Rate 106 H 101 H 100 H Respiratory Rate Blood Pressure Pulse Oximetry 91 91 91 Oxygen Delivery Method Oxygen Flow Rate 05/23/24 11:00 05/23/24 11:30 05/23/24 11:36 Temperature Pulse Rate 101 H 99 H Respiratory Rate Blood Pressure 117/71 Pulse Oximetry 85 L 92 Oxygen Delivery Method Nasal Cannula Oxygen Flow Rate 2 05/23/24 11:36 05/23/24 12:00 05/23/24 12:00 Temperature Pulse Rate 100 H 99 H Respiratory Rate Blood Pressure 108/56 L Pulse Oximetry 96 95 Oxygen Delivery Method Nasal Cannula Oxygen Flow Rate 2 05/23/24 12:30 05/23/24 12:30 05/23/24 13:00 Temperature Pulse Rate 101 H Respiratory Rate Blood Pressure 119/58 L 121/60 Pulse Oximetry 97 Oxygen Delivery Method Oxygen Flow Rate 05/23/24 13:00 05/23/24 14:43 05/23/24 14:43 Temperature Pulse Rate 105 H 112 H Respiratory Rate Blood Pressure 149/69 H Pulse Oximetry 95 86 L Oxygen Delivery Method Oxygen Flow Rate 05/23/24 15:00 05/23/24 15:00 05/23/24 15:30 Temperature Pulse Rate 102 H Respiratory Rate 23 Blood Pressure 156/73 H 137/67 Pulse Oximetry 94 Oxygen Delivery Method Nasal Cannula Oxygen Flow Rate 2 05/23/24 15:30 05/23/24 16:00 05/23/24 16:00 Temperature Pulse Rate 105 H 107 H Respiratory Rate 23 20 Blood Pressure 156/77 H Pulse Oximetry 92 92 Oxygen Delivery Method Nasal Cannula Nasal Cannula Oxygen Flow Rate 2 2 MDM - Headache Medical Records Attestation: I reviewed the patient's medical records. Lab Data Attestation: I reviewed the patient's lab results. 05/23/24 09:50 05/23/24 09:50 Labs: Lab Results 05/23/24 Range/Units 09:50 WBC 0.9 L* (4.5-11.0) X10^3/uL RBC 2.65 L (4.0-5.2) X10^6/uL Hgb 10.1 L (12.0-16.0) g/dL Hct 30.4 L (36-46) % MCV 114.8 H (80-100) fL MCH 38.2 H (26-34) PG MCHC 33.3 (30-36) % RDW 20.7 H (11.6-14.8) % Plt Count 244 (150-400) X10^3/uL Neut % (Auto) Not Reportable Lymph % (Auto) Not Reportable [place] % (Auto) Not Reportable Eos % (Auto) Not Reportable Baso % (Auto) Not Reportable Lymph # (Auto) Not Reportable [place] # (Auto) Not Reportable Baso # (Auto) Not Reportable Total Counted 50 Seg Neutrophils % 36.0 L (38-70) % Band Neutrophils % 14.0 H (3-7) % Lymphocytes % (Manual) 36.0 (25-45) % Monocytes % (Manual) 14.0 H (2-11) % Neutrophils # (Manual) 450 L (7188-0676) /uL RBC Morphology See below Anisocytosis 1+ H Macrocytosis 1+ H Sodium 136 L (137-145) mmol/L Potassium 4.2 (3.4-5.1) mmol/L Chloride 107 (98-107) mmol/L Carbon Dioxide 22 (22-32) mmol/L BUN 10 (7-17) mg/dL Creatinine 0.42 L (0.52-1.04) mg/dL Estimated GFR > 60 (>60) mL/min BUN/Creatinine Ratio 23.8 H (6-22) Glucose 112 H (80-110) mg/dL Calcium 8.8 (8.4-10.2) mg/dL Total Bilirubin 0.4 (0.2-1.3) mg/dL AST 42 H (14-36) IU/L ALT 29 (<35) IU/L Alkaline Phosphatase 181 H (38-126) U/L Total Protein 6.7 (6.3-8.2) g/dL Albumin 3.8 (3.5-5.0) g/dL Globulin 2.9 (1.7-4.1) g/dL Albumin/Globulin Ratio 1.3 (1.0-2.8) Lipase 58 (23-300) U/L Imaging Data CT scan - head: Radiologist's Impression: PROCEDURE: CT HEAD/BRAIN WO CON INDICATIONS: Left-sided headache TECHNIQUE: Noncontrast 4.5 mm thick angled axial sections acquired from the foramen magnum to the vertex, with coronal and sagittal reformats. For radiation dose reduction, the following was used: automated exposure control, adjustment of mA and/or kV according to patient size. COMPARISON: None. FINDINGS: Image quality: Diagnostic. CSF spaces: Basal cisterns are patent. No extra-axial fluid collections. The ventricles are symmetric in size and shape. Brain: No intracranial bleeds or masses. There is cerebral volume loss for age, with resultant ventricular and sulcal prominence. There are periventricular and deep white matter chronic small vessel ischemic changes. Anterior bifrontal encephalomalacia is likely posttraumatic in nature. There is intracranial internal carotid artery atherosclerosis. Skull and face: Calvarium and visualized facial bones appear intact, without suspicious lesions. Sinuses: Minimal dependent fluid in the left maxillary sinus. IMPRESSION: 1. No acute intracranial process. 2. Age-related volume loss, small vessel ischemic change. 3. Bifrontal anterior encephalomalacia is likely posttraumatic in nature. 4. Mild left maxillary sinusitis. Brain MRI: Radiologist's Impression: PROCEDURE: MR STROKE Pre- and post-contrast brain MRI, non-contrast brain MR angiogram, pre- and postcontrast neck MR angiogram INDICATIONS: hx of AML with unrelenting headache TECHNIQUE: Brain: Noncontrast axial T1 spin echo, axial T2 fast spin echo, sagittal and axial FLAIR, coronal T2 fast spin echo, axial gradient echo, axial diffusion and ADC through the brain. After the administration of contrast, axial 3D VIBE of the cranial vasculature and brain. Brain MRA: Non-contrast 3-D time of flight MR angiogram, with multiple nahtnxf-vohodelhe-pkivnbhrwl (MIP) reformats performed. Neck MRA: Axial and sagittal TruFISP through the neck. Coronal dynamic MR angiogram during administration of contrast in the arterial and venous phases, with 3- dimenstional cprxuwd-voeejzpbe-mqjzwroekz (MIP) reformats constructed from subtraction images. COMPARISON: [facility], CT, CT HEAD/BRAIN WO CON, 05/23/2024, 10:42. FINDINGS: Image quality: Diagnostic, with note made of motion artifact. BRAIN: CSF spaces: Ventricles are normal in size and shape. Basal cisterns are patent. No extra-axial fluid collections. Brain: Significant volume loss can be seen involving the frontal lobes anteriorly. Adjacent gliotic change can be seen. Remote infarct can be seen involving the left lateral inferior cerebellar hemisphere. No intracranial bleeds or mass effects. Daniesl-white matter interface is normal. Diffusion weighted images show no acute infarct. Brainstem appears normal. Normal intravascular flow voids are present. No abnormal intracranial enhancement. Note is made of age-appropriate brain parenchymal volume loss and chronic small vessel ischemic changes. Skull and face: Calvarial marrow signal is normal. Orbits appear normal. Note is made of bilateral lens replacements. Incidental note is made of hyperostosis frontalis. This is not considered to be pathologic in a woman of this age. Sinuses: There is a mucous retention cyst seen involving the left maxillary sinus. Sinuses and mastoids are otherwise clear. BRAIN MR ANGIOGRAM: Anterior circulation: Intracranial internal carotid arteries are normal in size and enhancement. The flow within the paired anterior cerebral arteries is normal and symmetric. The flow within the middle cerebral arteries is normal and symmetric. The anterior communicating artery is seen. No stenoses, occlusions, or aneurysms. Posterior circulation: Visualized portions of the vertebral arteries demonstrate normal caliber, and join to form a normal appearing basilar artery. There is a prominent right posterior communicating artery seen, with an accompanying diminutive right P1 segment. This is attributed to a type origin of the right posterior cerebral artery, which is considered to be a normal developmental variant of typically no clinical consequence. The flow within the posterior cerebral arteries is normal and symmetric. No aneurysms are seen. NECK MR ANGIOGRAM: Carotids: Great vessels demonstrate a conventional anatomy as they arise from the aortic arch. The origins of the common carotid arteries appear patent. The calibers and courses of both common carotid arteries are normal. The bifurcation regions appear normal bilaterally. The internal carotid arteries demonstrate normal course and caliber. Posterior circulation: The origins of the vertebral arteries are not well seen. More superior portions of both vertebral arteries demonstrate normal course and caliber, and join to form a normal appearing basilar artery. Miscellaneous: Subclavian arteries appear patent. Pre-contrast images through the neck show no soft tissue abnormalities. IMPRESSION: BRAIN MRI: No findings of acute or subacute infarction can be seen. No masses or abnormal enhancement can be seen. Volume loss and encephalomalacia can be seen involving both frontal lobes. Please correlate with prior trauma. 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 BRAIN MR ANGIOGRAM: No significant intracranial arterial abnormality is seen. NECK MR ANGIOGRAM: Within the arteries of the neck, no hemodynamically significant stenosis can be seen. MDM Narrative Medical decision making narrative: Initial treatment for her headache provided only short term results an improvement for headache. I have low suspicion for meningitis. No trauma. Her head CT is unremarkable. I discussed the case with her oncology team at [facility]. They recommended an MRI. They recommended that the MRI was unremarkable that she can continue to take the Tylenol and pain medication and if her symptoms were still persistent at the end of next week that they could follow her up in clinic. Her subsequent MRI is unremarkable. No signs of stroke. No signs of bleed. No signs of masses. Will discharge home with instructions on how to take Tylenol so that she was not overdosing and also will refill her pain medication. She was given a copy of her MRI on a CD. Her MRI was also transmitted to the [facility] so her oncology team could look at the results of this. She was given return precautions. Both her and her expressed understanding and agreement with plan. Discharge Plan Departure Patient Disposition: Home Clinical Impression: Headache Instructions: DI for Headache Activity Restrictions/Additional Instructions: I recommend that you take the to 500 mg tablets of Tylenol every 6 hours. You can supplement this with pain medication in between. Continue the rest of your medications as directed. If you are still having symptoms at the beginning of next week contact your oncology department for follow-up. Return to the emergency department for new symptoms. There are 2 medications on this discharge they include meclizine and ondansetron. These were inadvertently sent to [facility]. Unfortunately I am not able to recall these medications once I have been transmitted. If they call you stating that your medications have been filled you can tell them that they were sent by mistake. You do not need to take these medications. A prescription for pain medication was sent to [facility] per your request. Prescriptions: New meclizine 25 mg tablet 25 mg PO BID PRN (Reason: dizziness) Qty: 20 0RF ondansetron 4 mg tablet,disintegrating 4 mg PO Q6H PRN (Reason: nausea and vomiting) Qty: 14 0RF hydromorphone [Dilaudid] 2 mg tablet 2 mg PO Q4H PRN (Reason: pain) Qty: 14 0RF No Action levothyroxine 100 mcg tablet 100 mcg PO DAILY Qty: 90 3RF Eliquis 5 mg tablet 5 mg PO BID doxycycline hyclate 100 mg tablet 100 mg PO BID potassium chloride 20 mEq tablet,ER particles/crystals 20 meq PO BID pravastatin 80 mg tablet 80 mg PO DAILY omeprazole 20 mg capsule,delayed release(DR/EC) 20 mg PO DAILY levofloxacin 750 mg tablet 750 mg PO DAILY acyclovir 800 mg tablet 800 mg PO BID PRN atovaquone 750 mg/5 mL suspension 75 mg PO BID PRN ondansetron HCl 8 mg tablet 8 mg PO Q8-12H oxycodone 5 mg tablet 5 mg PO BID PRN prochlorperazine maleate 10 mg tablet 10 mg PO BID PRN voriconazole 50 mg tablet 100 mg PO DAILY Disabled Parking Permit 1 ea Not Applicable DAILY Qty: 1 0RF prednisone 20 mg tablet 10 mg PO DAILY prednisone 10 mg tablet See Rx Instructions .Route .COMPLEX Qty: 20 2RF Rx Instructions: 4 tablets daily for 2 days, then 3 tablets daily for 2 days, then 2 tablets daily for 2 days, then 1 tablet daily for 2 days then stop; gabapentin 300 mg capsule 300 mg PO TID Qty: 90 1RF hydromorphone [Dilaudid] 2 mg tablet 2 mg PO Q6H PRN (Reason: pain) Qty: 30 0RF lidocaine 5 % ointment 1 applic topical Q4HR PRN (Reason: pain) Qty: 50 0RF Referrals: Adrian Eid MD [Physician] - Grabiel Montoya MD [Primary Care Provider] - Stand Alone Forms: Patient Portal/API/Survey
[2024-05-23] MEDS: METOCLOPRAMIDE 10 MG/2 ML INJ IV (09:51)
[2024-05-23] MEDS: diphenhydrAMINE 50 MG/ML VIAL 25 MG IV (09:52)
[2024-05-23 10:22] LABS: Hematocrit 30.4 % (36-46); Hemoglobin 10.1 g/dL (12.0-16.0); Mean Corpuscular HGB Conc 33.3 % (30-36); Mean Corpuscular Hemoglobin 38.2 PG (26-34); Mean Corpuscular Volume 114.8 fL (80-100); Platelet Count 244 X10^3/uL (150-400); Red Blood Cell Count 2.65 X10^6/uL (4.0-5.2); Red Cell Distribution Width 20.7 % (11.6-14.8)
[2024-05-23 10:23] LABS: Alanine Aminotransferase 29 IU/L (<35); Albumin 3.8 g/dL (3.5-5.0); Albumin Globulin Ratio 1.3 (1.0-2.8); Alkaline Phosphatase 181 U/L (38-126); Aspartate Aminotransferase 42 IU/L (14-36); BUN Creatinine Ratio 23.8 (6-22); Bilirubin Total 0.4 mg/dL (0.2-1.3); Blood Urea Nitrogen 10 mg/dL (7-17); Calcium 8.8 mg/dL (8.4-10.2); Carbon Dioxide 22 mmol/L (22-32); Chloride 107 mmol/L (98-107); Estimated Glomerular Filt Rate > 60 mL/min (>60); Globulin 2.9 g/dL (1.7-4.1); Glucose 112 mg/dL (80-110); HEMOLYSIS < 15 (0-50); Lipase 58 U/L (23-300); Potassium 4.2 mmol/L (3.4-5.1); Sodium 136 mmol/L (137-145); Total Protein 6.7 g/dL (6.3-8.2)
[2024-05-23 10:24] LABS: Add Manual Diff / Slide Review YES
[2024-05-23 10:26] LABS: White Blood Cell Count 0.9 X10^3/uL (4.5-11.0)
[2024-05-23 10:49] LABS: Neutrophils Absolute Manual 450 /uL (3000-5900); Total Cells Counted 50
[2024-05-23 10:53] LABS: Anisocytosis 1+; Macrocytosis 1+
[2024-05-23] MEDS: HYDROMORPHONE 0.5 MG INJ IV (10:57)
--- NOTE | 2024-05-23 11:17 | PC.NURSE ---
Patient received dilaudid, see MAR, oxygen saturation dropped to 85% on RA, placed patient on 2L NC, provider aware
--- NOTE | 2024-05-23 13:20 | DI.MRI.S_ITS ---
PROCEDURE: MR STROKE Pre- and post-contrast brain MRI, non-contrast brain MR angiogram, pre- and postcontrast neck MR angiogram INDICATIONS: hx of AML with unrelenting headache TECHNIQUE: Brain: Noncontrast axial T1 spin echo, axial T2 fast spin echo, sagittal and axial FLAIR, coronal T2 fast spin echo, axial gradient echo, axial diffusion and ADC through the brain. After the administration of contrast, axial 3D VIBE of the cranial vasculature and brain. Brain MRA: Non-contrast 3-D time of flight MR angiogram, with multiple acjlbza-nrcifkctj-ixsobsgsmv (MIP) reformats performed. Neck MRA: Axial and sagittal TruFISP through the neck. Coronal dynamic MR angiogram during administration of contrast in the arterial and venous phases, with 3-dimenstional tkmcpib-qfmwcekfd-xrdsjcontl (MIP) reformats constructed from subtraction images. COMPARISON: [facility], CT, CT HEAD/BRAIN WO CON, 05/23/2024, 10:42. FINDINGS: Image quality: Diagnostic, with note made of motion artifact. BRAIN: CSF spaces: Ventricles are normal in size and shape. Basal cisterns are patent. No extra-axial fluid collections. Brain: Significant volume loss can be seen involving the frontal lobes anteriorly. Adjacent gliotic change can be seen. Remote infarct can be seen involving the left lateral inferior cerebellar hemisphere. No intracranial bleeds or mass effects. Daniels-white matter interface is normal. Diffusion weighted images show no acute infarct. Brainstem appears normal. Normal intravascular flow voids are present. No abnormal intracranial enhancement. Note is made of age-appropriate brain parenchymal volume loss and chronic small vessel ischemic changes. Skull and face: Calvarial marrow signal is normal. Orbits appear normal. Note is made of bilateral lens replacements. Incidental note is made of hyperostosis frontalis. This is not considered to be pathologic in a woman of this age. Sinuses: There is a mucous retention cyst seen involving the left maxillary sinus. Sinuses and mastoids are otherwise clear. BRAIN MR ANGIOGRAM: Anterior circulation: Intracranial internal carotid arteries are normal in size and enhancement. The flow within the paired anterior cerebral arteries is normal and symmetric. The flow within the middle cerebral arteries is normal and symmetric. The anterior communicating artery is seen. No stenoses, occlusions, or aneurysms. Posterior circulation: Visualized portions of the vertebral arteries demonstrate normal caliber, and join to form a normal appearing basilar artery. There is a prominent right posterior communicating artery seen, with an accompanying diminutive right P1 segment. This is attributed to a type origin of the right posterior cerebral artery, which is considered to be a normal developmental variant of typically no clinical consequence. The flow within the posterior cerebral arteries is normal and symmetric. No aneurysms are seen. NECK MR ANGIOGRAM: Carotids: Great vessels demonstrate a conventional anatomy as they arise from the aortic arch. The origins of the common carotid arteries appear patent. The calibers and courses of both common carotid arteries are normal. The bifurcation regions appear normal bilaterally. The internal carotid arteries demonstrate normal course and caliber. Posterior circulation: The origins of the vertebral arteries are not well seen. More superior portions of both vertebral arteries demonstrate normal course and caliber, and join to form a normal appearing basilar artery. Miscellaneous: Subclavian arteries appear patent. Pre-contrast images through the neck show no soft tissue abnormalities. IMPRESSION: BRAIN MRI: No findings of acute or subacute infarction can be seen. No masses or abnormal enhancement can be seen. Volume loss and encephalomalacia can be seen involving both frontal lobes. Please correlate with prior trauma. 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 BRAIN MR ANGIOGRAM: No significant intracranial arterial abnormality is seen. NECK MR ANGIOGRAM: Within the arteries of the neck, no hemodynamically significant stenosis can be seen. Dictated by: Misael Blake M.D. on 05/23/2024 at 14:32 Approved by: Misael Blake M.D. on 05/23/2024 at 14:35
--- NOTE | 2024-05-23 14:54 | PC.NURSE ---
Patient is SOB after walking back from the bathroom, O2 sats at 86% when back on monitor and tachycardic, provider aware
== END 2024-05-23 15:28 | disposition home or self-care (01) ==
PROVIDERS: Emergency Provider Emergency Medicine; PCP Internal Medicine
DX: R51.9 Headache, unspecified (principal); Z79.01 Long term (current) use of anticoagulants; R79.89 Other specified abnormal findings of blood chemistry; C92.00 Acute myeloblastic leukemia, not having achieved remission
CPT/HCPCS: 70450; 70544; 70549; 70553; 80053; 83690; 85007; 85025; 99284; A9579; J1171; J1200; J2765

== ENCOUNTER 2024-05-23 20:55 | Inpatient (IN) | payer MEDICARE, SELFPAY ==
[2023-08-29 15:19] VITALS: BMI 25.4
[2024-05-23] VITALS (8 sets, daily range): BP systolic 125–152; BP diastolic 57–74; PULSE 104–123; RESP 15–32; TEMP 37.3–37.8; O2SAT 88–94; BMI 26.1
--- NOTE | 2024-05-23 21:04 | ED_ITS ---
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 Patient was actually seen earlier today in the emergency department for headache that she was had for the last month. She underwent multiple tests including MRI of the brain without etiology found. Patient was discharged home with her . Has been states that after leaving the hospital the patient began to feel fatigued and chilled. He took a digital temperature of 103.8? F. patient last had Tylenol around 1:00 p.m.. He decided to bring the patient back for evaluation. Patient noted to be hypoxic on room air, which was not present at the previous visit. Patient states that since her AML diagnosis she has felt short of breath constantly. She does not feel any more short of breath than usual. states that patient is on Dapsone for pyoderma lesion on LLE, as well as prophylactic voriconazole, levofloxacin, and acyclovir. Related Data Home Medications Medication Instructions Recorded Confirmed apixaban 5 mg tablet (Eliquis) 5 mg PO BID 09/03/23 05/07/24 doxycycline hyclate 100 mg tablet 100 mg PO BID 09/03/23 05/07/24 acyclovir 800 mg tablet 800 mg PO BID PRN 12/06/23 05/07/24 atovaquone 750 mg/5 mL oral 75 mg PO BID PRN 12/06/23 05/07/24 suspension levofloxacin 750 mg tablet 750 mg PO DAILY 12/06/23 05/07/24 omeprazole 20 mg capsule,delayed 20 mg PO DAILY 12/06/23 05/07/24 release ondansetron HCl 8 mg tablet 8 mg PO Q8-12H 12/06/23 05/07/24 oxycodone 5 mg tablet 5 mg PO BID PRN 12/06/23 05/07/24 potassium chloride 20 mEq 20 meq PO BID 12/06/23 05/07/24 tablet,extended release(part/cryst) pravastatin 80 mg tablet 80 mg PO DAILY 12/06/23 05/07/24 prochlorperazine maleate 10 mg 10 mg PO BID PRN 12/06/23 05/07/24 tablet voriconazole 50 mg tablet 100 mg PO DAILY 12/06/23 05/07/24 prednisone 20 mg tablet 10 mg PO DAILY 03/12/24 05/07/24 Previous Rx's Medication Instructions Recorded levothyroxine 100 mcg tablet 100 mcg PO DAILY #90 tabs 07/26/23 [address]ing Permit 1 ea Not Applicable DAILY #1 ea 12/06/23 lidocaine 5 % topical ointment 1 applic topical Q4HR PRN pain #50 03/06/24 grams gabapentin 300 mg capsule 300 mg PO TID #90 caps 03/12/24 hydromorphone 2 mg tablet 2 mg PO Q6H PRN pain #30 tabs 03/12/24 (Dilaudid) prednisone 10 mg tablet See Rx Instructions .Route 03/12/24 .COMPLEX #20 tabs hydromorphone 2 mg tablet 2 mg PO Q4H PRN pain #14 tabs 05/23/24 (Dilaudid) meclizine 25 mg tablet 25 mg PO BID PRN dizziness #20 tabs 05/23/24 ondansetron 4 mg disintegrating 4 mg PO Q6H PRN nausea and 05/23/24 tablet vomiting #14 tabs Allergies Allergy/AdvReac Type Severity Reaction Status Date / Time bacitracin Allergy Mild Blister Verified 05/07/24 16:16 [From Polysporin(bacitracin base)] neomycin Allergy Mild Blister Verified 05/07/24 16:16 [From Neosporin ([id number])] polymyxin B Allergy Mild Blister Verified 05/07/24 16:16 [From Polysporin(bacitracin base)] chlorhexidine Allergy Verified 05/23/24 09:24 sulfamethoxazole Allergy Verified 05/07/24 16:16 [From Bactrim] trimethoprim [From Bactrim] Allergy Verified 05/07/24 16:16 Patient History Medical History Adnexal mass Urethral prolapse Pyoderma gangrenosum Drug-induced adrenocortical insufficiency Acute hypoxic respiratory failure Acute myelogenous leukemia Trigger finger, right ring finger Post-COVID syndrome DVT (deep venous thrombosis) Eczematous dermatitis Osteopenia Family history of melanoma Personal history of malignant melanoma Family history of colon cancer BPPV (benign paroxysmal positional vertigo) Urinary incontinence Chronic insomnia Irritable bowel syndrome with diarrhea GERD without esophagitis Impaired fasting glucose Acquired hypothyroidism Mixed hyperlipidemia History of traumatic brain injury Actinic keratosis (~1999) Mumps Measles (~1953) Chicken pox (~1951) Tinnitus (~2007) Thyroid nodule (~1980) Skin cancer (~1999) Melanoma (~2018) Surgical History Anesthesia History of varicose vein stripping (~1985) History of thyroidectomy (~1975) History of hysterectomy (~2010) Family History Father Cancer Mother Cancer Brother Cancer Grandfather Diabetes mellitus Grandmother Cancer Social History details: (Juan), four daughters household members: spouse Smoking Status: Never smoker alcohol intake: current Smoking Status: Never smoker alcohol intake frequency: 0-2 drinks per day Substance Use Type: does not use Exam Initial Vital Signs Initial Vital Signs: Vital Signs Temperature 100.1 F H 05/23/24 21:05 Pulse Rate 123 H 05/23/24 21:05 Respiratory Rate 18 05/23/24 21:05 Blood Pressure 125/61 05/23/24 21:05 Pulse Oximetry 88 L 05/23/24 21:05 Oxygen Delivery Method Room Air 05/23/24 21:05 Const: Awake, alert, ill-appearing, debilitated, frail Cardiac: Tachycardia, regular rhythm RESP: unlabored, on supplemental oxygen, no wheezing GI: Soft, nontender, nondistended, no rebound, no guarding MSK: No deformity, full range of motion Skin: Warm, Dry, palm sized pyoderma lesion on outer left lower extremity Neuro: AO x3, CN II-XII grossly intact, moves all extremities Course Orders Ordered: ED Orders 05/23/24 21:06 Chest [XR chest 1V] Stat EKG-12 Lead Stat 05/23/24 21:23 CBC Auto Diff [Complete Blood Count AUTO DIFF] Stat CMP [Comprehensive Metabolic Panel] Stat Lactate (Lactic Acid) Stat Procalcitonin Stat Troponin & CK Cardiac Panel Stat 05/23/24 21:36 Blood Culture Stat 05/23/24 22:01 Respiratory Panel (Film Array) Stat Vancomycin HCl/Dextrose (Vancomycin) 1,500 mg in 300 mls @ 200 mls/hr IV NOW ONE Stop: 05/24/24 00:30 Discontinued Medications Acetaminophen (Acetaminophen 325 Mg Tablet) 975 mg PO NOW ONE Stop: 05/23/24 22:18 Last Admin: 05/23/24 22:20 Dose: 975 mg Documented By: JANES Sodium Chloride (Normal Saline 0.9%) 1,000 mls @ 1,000 mls/hr IV BOLUS ONE Stop: 05/23/24 22:05 Last Infusion: 05/23/24 22:31 Dose: Infused Documented By: Admin: 05/23/24 21:31 Dose: 1,000 mls/hr Documented By: JANES Cefepime HCl 2 gm/ Sodium (Chloride) 100 mls @ 200 mls/hr IV NOW ONE Stop: 05/23/24 21:44 Last Infusion: 05/23/24 22:30 Dose: Infused Documented By: Admin: 05/23/24 21:54 Dose: 200 mls/hr Documented By: JANES Vital Signs Vital signs: Vital Signs - 8 hr 05/23/24 21:05 05/23/24 21:58 05/23/24 22:00 Temperature 100.1 F H Pulse Rate 123 H 110 H Respiratory Rate 18 32 H Blood Pressure 125/61 139/65 Pulse Oximetry 88 L 93 Oxygen Delivery Method Room Air Nasal Cannula Oxygen Flow Rate 3 05/23/24 22:00 05/23/24 22:17 Temperature 99.1 F Pulse Rate 109 H Respiratory Rate 21 Blood Pressure Pulse Oximetry 93 Oxygen Delivery Method Nasal Cannula Oxygen Flow Rate 3 Medical Decision Making Lab Data 05/23/24 21:23 05/23/24 21:23 Labs: Lab Results 05/23/24 Range/Units 21:23 WBC 1.0 L* (4.5-11.0) X10^3/uL RBC 2.68 L (4.0-5.2) X10^6/uL Hgb 10.3 L (12.0-16.0) g/dL Hct 30.7 L (36-46) % MCV 114.3 H (80-100) fL MCH 38.3 H (26-34) PG MCHC 33.5 (30-36) % RDW 20.4 H (11.6-14.8) % Plt Count 244 (150-400) X10^3/uL Neut % (Auto) Not Reportable Lymph % (Auto) Not Reportable [place] % (Auto) Not Reportable Eos % (Auto) Not Reportable Baso % (Auto) Not Reportable Lymph # (Auto) Not Reportable [place] # (Auto) Not Reportable Baso # (Auto) Not Reportable Total Counted 100 Seg Neutrophils % 48.0 (38-70) % Band Neutrophils % 6.0 (3-7) % Lymphocytes % (Manual) 42.0 (25-45) % Monocytes % (Manual) 2.0 (2-11) % Basophils % (Manual) 1.0 (0-1) % Metamyelocytes % 1.0 H (-0) % Neutrophils # (Manual) 540 L (4180-6742) /uL RBC Morphology See below Anisocytosis 1+ H Sodium 133 L (137-145) mmol/L Potassium 4.0 (3.4-5.1) mmol/L Chloride 103 (98-107) mmol/L Carbon Dioxide 25 (22-32) mmol/L BUN 9 (7-17) mg/dL Creatinine 0.50 L (0.52-1.04) mg/dL Estimated GFR > 60 (>60) mL/min BUN/Creatinine Ratio 18.0 (6-22) Glucose 122 H (80-110) mg/dL Lactate 0.7 (0.7-2.1) mmol/L Calcium 8.9 (8.4-10.2) mg/dL Total Bilirubin 0.6 (0.2-1.3) mg/dL AST 52 H (14-36) IU/L ALT 35 H (<35) IU/L Alkaline Phosphatase 245 H (38-126) U/L Total Creatine Kinase 26 L (30-135) U/L Troponin I 0.012 (0.01-0.034) ng/mL Total Protein 7.1 (6.3-8.2) g/dL Albumin 3.7 (3.5-5.0) g/dL Globulin 3.4 (1.7-4.1) g/dL Albumin/Globulin Ratio 1.1 (1.0-2.8) Procalcitonin 0.460 (<0.5) ng/mL Imaging Data Chest x-ray: Radiologist's Impression: PROCEDURE: XR CHEST 1V INDICATIONS: fever, hypoxia, hx AML TECHNIQUE: One view of the chest was acquired. COMPARISON: [facility], CR, XR CHEST 1V, 08/24/2023, 13:01. [facility], CR, XR CHEST 2V, 08/09/2023, 15:45. FINDINGS: Surgical changes and devices: Right chest wall Port-A-Cath with tip projecting over the superior vena cava. Lungs and pleura: Mild left basilar atelectasis versus consolidation. No pleural effusions or pneumothorax. Mediastinum: Mediastinal contours appear normal. Heart size is normal. Bones and chest wall: No suspicious bony lesions. Overlying soft tissues appear unremarkable. IMPRESSION: Mild left basilar atelectasis versus consolidation. The lungs are otherwise clear. Dictated by: Michael Staton M.D. on 05/23/2024 at 21:28 Approved by: Michael Staton M.D. on 05/23/2024 at 21:29 MDM Narrative Medical decision making narrative: New fever and oxygen saturation in patient with AML, known to have low white blood cell count, however neutrophil count and percentages unable to be reported, so absolute neutrophil count unable to be calculated at this time. Patient was seen earlier today in the emergency department, however she had normal vitals at that time and was here for a headache that she had had for several preceding days. Respiratory therapy paged for assistance and patient was placed on supplemental nasal cannula. Repeat labs shows wbc count 1.0, unchanged from previous. procalcitonin 0.46, troponin 0.012, other labs unchanged from previous. CXR shows left atelecatsis vs pneumonia. With fever and low O2 saturations suspect pneumonia. Patient given cefepime and vancomycin. Admitted for further treatment. Discharge Plan Departure Patient Disposition: Admitted As Inpatient Clinical Impression: Pneumonia, AML (acute myeloblastic leukemia) Admit Date/Time: 05/23/24 23:02
--- NOTE | 2024-05-23 21:28 | EKG_ITS ---
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
[2024-05-23] MEDS: SODIUM CHLORIDE 0.9% 1,000 ML 1000 ML IV (21:31)
[2024-05-23 21:41] LABS: Hematocrit 30.7 % (36-46); Hemoglobin 10.3 g/dL (12.0-16.0); Mean Corpuscular HGB Conc 33.5 % (30-36); Mean Corpuscular Hemoglobin 38.3 PG (26-34); Mean Corpuscular Volume 114.3 fL (80-100); Platelet Count 244 X10^3/uL (150-400); Red Blood Cell Count 2.68 X10^6/uL (4.0-5.2); Red Cell Distribution Width 20.4 % (11.6-14.8)
[2024-05-23 21:45] LABS: Add Manual Diff / Slide Review YES; Alanine Aminotransferase 35 IU/L (<35); Albumin 3.7 g/dL (3.5-5.0); Albumin Globulin Ratio 1.1 (1.0-2.8); Alkaline Phosphatase 245 U/L (38-126); Aspartate Aminotransferase 52 IU/L (14-36); Bilirubin Total 0.6 mg/dL (0.2-1.3); Blood Urea Nitrogen 9 mg/dL (7-17); Calcium 8.9 mg/dL (8.4-10.2); Carbon Dioxide 25 mmol/L (22-32); Chloride 103 mmol/L (98-107); Creatine Kinase 26 U/L (30-135); Estimated Glomerular Filt Rate > 60 mL/min (>60); Globulin 3.4 g/dL (1.7-4.1); Glucose 122 mg/dL (80-110); HEMOLYSIS < 15 (0-50); Lactate (Lactic Acid) 0.7 mmol/L (0.7-2.1); Sodium 133 mmol/L (137-145); Total Protein 7.1 g/dL (6.3-8.2)
[2024-05-23] MEDS: CEFEPIME 2 GM in SODIUM CHLORIDE 0.9% 100 ML IV (21:54)
[2024-05-23 21:57] LABS: Troponin I 0.012 ng/mL (0.01-0.034)
[2024-05-23 22:08] LABS: Neutrophils Absolute Manual 540 /uL (3000-5900); Total Cells Counted 100
[2024-05-23 22:11] LABS: Anisocytosis 1+
[2024-05-23] MEDS: ACETAMINOPHEN 325 MG TABLET 975 MG PO (22:20)
[2024-05-23 22:52] LABS: Adenovirus Not Detected (Not Detect); B. parapertussis Not Detected (Not Detecte); Bordetella pertussis Not Detected (Not Detect); Chlamydophila pneumoniae Not Detected (Not Detect); Coronavirus 229E Not Detected (Not Detect); Coronavirus HKU1 Not Detected (Not Detect); Coronavirus NL 63 Not Detected (Not Detect); Coronavirus OC43 Not Detected (Not Detect); Human Metapneumovirus Not Detected (Not Detect); Human Rhinovirus/Enterovirus Not Detected (Not Detect); Influenza A Not Detected (Not Detect); Influenza B Not Detected (Not Detect); Mycoplasma pneumoniae Not Detected (Not Detect); Parainfluenza Virus 1 Not Detected (Not Detect); Parainfluenza Virus 2 Not Detected (Not Detect); Parainfluenza Virus 3 Not Detected (Not Detect); Parainfluenza Virus 4 Not Detected (Not Detect); Respiratory Syncytial Virus Not Detected (Not Detect); SARS- CoV-2 Not Detected (Not Detecte)
[2024-05-23] MEDS: VANCOMYCIN 1,500 MG/300 ML PIGGYBACK 200 MG IV (23:14)
[2024-05-24] VITALS (10 sets, daily range): BP systolic 113–127; BP diastolic 57–63; PULSE 102–120; RESP 14–18; TEMP 36.3–39.5; O2SAT 85–97; BMI 26.1
--- NOTE | 2024-05-24 03:00 | PM.HP.1 ---
History of Present Illness History of Present Illness Chief complaint: Returning; 104 Fever Narrative: 74 year-old female, with past medical history of AML on chemotherapy last treatment, two weeks ago, hypothyroidism, hyperlipidemia, and DVT on apixaban presents with fever. Of note, the patient was seen earlier today in our ER department. The patient was seen for a headache with negative work up including brain MRI. The patient was sent home with her . Per the report, after shortly being home, the patient developed a fever of 103.8F. The patient also has increased fatigue, but denies any nausea, vomiting, chest pain, down pain, coughing, or increasing shortness of breath. In our emergency room, the patient was stable with mild tachycardia. The patient was requiring 2L of oxygen per nasal cannula. Chest x-ray suggested focal pneumonia. The patient lab show neutropenia. Due to pneumonia and neutropenic fever our ER physician did cover the patient for Cefepine and vancomycin. Blood cultures were drawn. The patient however, was not septic. [facility] Medical History Adnexal mass Urethral prolapse Pyoderma gangrenosum Drug-induced adrenocortical insufficiency Acute hypoxic respiratory failure Acute myelogenous leukemia Trigger finger, right ring finger Post-COVID syndrome DVT (deep venous thrombosis) Eczematous dermatitis Osteopenia Family history of melanoma Personal history of malignant melanoma Family history of colon cancer BPPV (benign paroxysmal positional vertigo) Urinary incontinence Chronic insomnia Irritable bowel syndrome with diarrhea GERD without esophagitis Impaired fasting glucose Acquired hypothyroidism Mixed hyperlipidemia History of traumatic brain injury Actinic keratosis (~1999) Mumps Measles (~1953) Chicken pox (~1951) Tinnitus (~2007) Thyroid nodule (~1980) Skin cancer (~1999) Melanoma (~2019) Surgical History Anesthesia History of varicose vein stripping (~1985) History of thyroidectomy (~1975) History of hysterectomy (~2010) Family History Father Cancer Mother Cancer Brother Cancer Grandfather Diabetes mellitus Grandmother Cancer Social History details: (Juan), four daughters household members: spouse Smoking Status: Never smoker alcohol intake: current Meds Home Medications and Allergies Home Medications Medication Instructions Recorded Confirmed Type levothyroxine 100 mcg tablet 100 mcg PO DAILY #90 tabs 07/26/23 05/24/24 Rx apixaban 5 mg tablet (Eliquis) 5 mg PO BID 09/03/23 05/24/24 History Disabled Parking Permit 1 ea Not Applicable DAILY #1 ea 12/06/23 05/07/24 Rx acyclovir 800 mg tablet 800 mg PO BID 12/06/23 05/24/24 History levofloxacin 750 mg tablet 750 mg PO DAILY 12/06/23 05/24/24 History omeprazole 20 mg capsule,delayed 20 mg PO DAILY 12/06/23 05/24/24 History release potassium chloride 20 mEq 20 meq PO BID 12/06/23 05/24/24 History tablet,extended release(part/cryst) pravastatin 80 mg tablet 80 mg PO BEDTIME 12/06/23 05/24/24 History voriconazole 50 mg tablet 100 mg PO DAILY 12/06/23 05/24/24 History lidocaine 5 % topical ointment 1 applic topical Q4HR PRN pain #50 03/06/24 05/24/24 Rx grams hydromorphone 2 mg tablet 2 mg PO Q4H PRN pain #14 tabs 05/23/24 05/24/24 Rx (Dilaudid) calcium carbonate 500 mg PO BID PRN gerd 05/24/24 05/24/24 History dapsone 25 mg tablet 50 mg PO DAILY 05/24/24 05/24/24 History diphenhydramine HCl 50 mg capsule 75 mg PO BEDTIME 05/24/24 05/24/24 History gabapentin 300 mg capsule 300 mg PO DAILY 05/24/24 05/24/24 History gabapentin 600 mg tablet 600 mg PO BEDTIME 05/24/24 05/24/24 History trospium 20 mg tablet 20 mg PO BID 05/24/24 05/24/24 History Allergies Allergy/AdvReac Type Severity Reaction Status Date / Time bacitracin Allergy Mild Blister Verified 05/07/24 16:16 [From Polysporin(bacitracin base)] neomycin Allergy Mild Blister Verified 05/07/24 16:16 [From Neosporin ([id number])] polymyxin B Allergy Mild Blister Verified 05/07/24 16:16 [From Polysporin(bacitracin base)] chlorhexidine Allergy Verified 05/23/24 09:24 sulfamethoxazole Allergy Verified 05/07/24 16:16 [From Bactrim] trimethoprim [From Bactrim] Allergy Verified 05/07/24 16:16 Review of Systems Review of Systems ROS: Yes All systems reviewed with the patient and are negative except as otherwise documented Exam Vital Signs (past 8 hours): - 05/23/24 21:05 05/23/24 21:58 05/23/24 22:00 Temperature 100.1 F H Pulse Rate 123 H 110 H Respiratory Rate 18 32 H Blood Pressure 125/61 139/65 Pulse Oximetry 88 L 93 Oxygen Delivery Method Room Air Nasal Cannula Oxygen Flow Rate 3 Fraction of Inspired Oxygen 05/23/24 22:00 05/23/24 22:17 05/23/24 22:30 Temperature 99.1 F Pulse Rate 109 H 110 H Respiratory Rate 21 21 Blood Pressure Pulse Oximetry 93 94 Oxygen Delivery Method Nasal Cannula Oxygen Flow Rate 3 Fraction of Inspired Oxygen 05/23/24 22:30 05/23/24 23:00 05/23/24 23:01 Temperature Pulse Rate 109 H Respiratory Rate 16 Blood Pressure 152/74 H 140/57 L Pulse Oximetry 90 L Oxygen Delivery Method Oxygen Flow Rate Fraction of Inspired Oxygen 05/23/24 23:01 05/23/24 23:30 05/23/24 23:30 Temperature Pulse Rate 109 H 104 H Respiratory Rate 16 15 Blood Pressure 135/60 Pulse Oximetry 90 L 91 Oxygen Delivery Method Nasal Cannula Oxygen Flow Rate 3 Fraction of Inspired Oxygen 05/24/24 00:15 05/24/24 00:28 Temperature 98.8 F Pulse Rate 102 H Respiratory Rate 14 Blood Pressure 118/61 Pulse Oximetry 96 97 Oxygen Delivery Method Nasal Cannula Oxygen Flow Rate 3 3 Fraction of Inspired Oxygen 32 Fraction of Inspired Oxygen 32 SaO2/FiO2 Ratio 303 Oxygen Delivery Method Nasal Cannula Oxygen Flow Rate 3 Narrative Exam Narrative: Physical Exam: GENERAL: The patient is not in any acute distressed. Awake and alert. HEENT: Nonicteric sclerae, PERRLA, EOMI. Oropharynx clear. Moist mucous membranes. Conjunctivae appear well perfused. HEART: Regular rate and rhythm without murmurs. No lower extremities edema. LUNGS: Clear to auscultation bilaterally. No wheezing, crackles or rhonchi ABDOMEN: Soft, positive bowel sounds, nontender. SKIN: No rash, no excessive bruising, petechiae, or purpura. NEUROLOGIC: AxO x 3. Cranial nerves II-XII intact without motor/sensory deficit. Objective Labs 05/23/24 21:23 05/23/24 21:23 Labs: Laboratory Results - last 24 hr 05/23/24 05/23/24 21:23 22:01 WBC 1.0 L* RBC 2.68 L Hgb 10.3 L Hct 30.7 L MCV 114.3 H MCH 38.3 H MCHC 33.5 RDW 20.4 H Plt Count 244 Neut % (Auto) Not Reportable Lymph % (Auto) Not Reportable [place] % (Auto) Not Reportable Eos % (Auto) Not Reportable Baso % (Auto) Not Reportable Lymph # (Auto) Not Reportable [place] # (Auto) Not Reportable Baso # (Auto) Not Reportable Total Counted 100 Seg Neutrophils % 48.0 Band Neutrophils % 6.0 Lymphocytes % (Manual) 42.0 Monocytes % (Manual) 2.0 Basophils % (Manual) 1.0 Metamyelocytes % 1.0 H Neutrophils # (Manual) 540 L RBC Morphology See below Anisocytosis 1+ H Sodium 133 L Potassium 4.0 Chloride 103 Carbon Dioxide 25 BUN 9 Creatinine 0.50 L Estimated GFR > 60 BUN/Creatinine Ratio 18.0 Glucose 122 H Lactate 0.7 Calcium 8.9 Total Bilirubin 0.6 AST 52 H ALT 35 H Alkaline Phosphatase 245 H Total Creatine Kinase 26 L Troponin I 0.012 Total Protein 7.1 Albumin 3.7 Globulin 3.4 Albumin/Globulin Ratio 1.1 Procalcitonin 0.460 Chlamy pneumoniae PCR Not detected Adenovirus (PCR) Not detected B. pertussis DNA (PCR) Not detected B.parapertussis DNA PCR Not detected Coronavirus OC43 (PCR) Not detected Coronavirus HKU1 (PCR) Not detected Coronavirus 229E (PCR) Not detected SARS-CoV-2 (PCR) Not detected Coronavirus NL63 (PCR) Not detected Human Metapneumovir PCR Not detected Influenza Type A (PCR) Not detected Influenza Type B (PCR) Not detected M. pneumoniae (PCR) Not detected Parainfluenza 1 (PCR) Not detected Parainfluenza 2 (PCR) Not detected Parainfluenza 3 (PCR) Not detected Parainfluenza 4 (PCR) Not detected RSV (PCR) Not detected Entero/Rhino (PCR) Not detected Assessment & Plan Assessment & Plan narrative: Neutropenic fever in the setting of pneumonia. Admit patient to medical telemetry inpatient. Continue to treat with IV Cefepime and vancomycin. Will also resume home Levaquin. Monitor for sepsis. Mild acute respiratory failure with hypoxemia. Likely from above. Treat as above and monitor O2 for now. Mild transaminitis. Monitor LFTs for now. Hypothyroidism. Resume home Synthroid. Hyperlipidemia. Resume home statin. DVT. Resume Home Xarelto. Code status. Full code. Disposition likely home in 2 to 3 days. Time-Based Coding :: [TOTAL MINUTES] spent with patient and on the chart (including review of chart, obtaining history, exam, reviewing outside data, placing orders, documenting exam and treatment plan, and counseling patient) on [DATE]. Quality VTE Deep Vein Thrombosis/Pulmonary Embolism Present on Admission: No
[2024-05-24] MEDS: PANTOPRAZOLE DR 20 MG TABLET PO (05:32)
[2024-05-24] MEDS: LEVOTHYROXINE 100 MCG TABLET PO (05:32)
[2024-05-24 05:50] LABS: Hematocrit 28.6 % (36-46); Hemoglobin 9.5 g/dL (12.0-16.0); Mean Corpuscular HGB Conc 33.3 % (30-36); Mean Corpuscular Volume 114.1 fL (80-100); Platelet Count 223 X10^3/uL (150-400); Red Cell Distribution Width 20.2 % (11.6-14.8)
--- NOTE | 2024-05-24 05:52 | PC.NURSE ---
Admit/NOC Shift Note- Patient arrived to room via stretcher at 0015. Patient alert and oriented and able to make needs known to staff. Admit questions done, medications reviewed and updated, physical assessment done, an d skin check completed. Patient oriented to bed and bed controls, room, bathroom, lights, phonme, menu, and call tolentino/TV remote. Patient agrees to call for assistance. Safety measures in place. bed alarm activated. Call tolentino and phone within reach. Will continue to monitor.
[2024-05-24 05:56] LABS: Add Manual Diff / Slide Review YES
[2024-05-24 05:59] LABS: Alanine Aminotransferase 33 IU/L (<35); Albumin 3.3 g/dL (3.5-5.0); Albumin Globulin Ratio 1.1 (1.0-2.8); Alkaline Phosphatase 221 U/L (38-126); Aspartate Aminotransferase 40 IU/L (14-36); BUN Creatinine Ratio 21.7 (6-22); Bilirubin Total 0.5 mg/dL (0.2-1.3); Blood Urea Nitrogen 10 mg/dL (7-17); Calcium 8.5 mg/dL (8.4-10.2); Carbon Dioxide 24 mmol/L (22-32); Chloride 106 mmol/L (98-107); Estimated Glomerular Filt Rate > 60 mL/min (>60); Globulin 2.9 g/dL (1.7-4.1); Glucose 108 mg/dL (80-110); HEMOLYSIS < 15 (0-50); Potassium 3.8 mmol/L (3.4-5.1); Sodium 135 mmol/L (137-145); Total Protein 6.2 g/dL (6.3-8.2); White Blood Cell Count 1.1 X10^3/uL (4.5-11.0)
--- NOTE | 2024-05-24 07:40 | PM.PN.1 ---
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 Of note, the patient was seen earlier today in our ER department. The patient was seen for a headache with negative work up including brain MRI. The patient was sent home with her . Per the report, after shortly being home, the patient developed a fever of 103.8F. The patient also has increased fatigue, but denies any nausea, vomiting, chest pain, down pain, coughing, or increasing shortness of breath. In our emergency room, the patient was stable with mild tachycardia. The patient was requiring 2L of oxygen per nasal cannula. Chest x-ray suggested focal pneumonia. The patient lab show neutropenia. Due to pneumonia and neutropenic fever our ER physician did cover the patient for Cefepine and vancomycin. Blood cultures were drawn. The patient however, was not septic. Interval history: The patient reports persistent headache, mostly behind her left eye, without neck stiffness, improved to 3/10 after Tylenol. She is seen with her and daughter at bedside. She reports feeling better. Exam Vital Signs (past 8 hours): - 05/24/24 00:15 05/24/24 00:28 05/24/24 04:00 Temperature 98.8 F 99.0 F Pulse Rate 102 H 117 H Respiratory Rate 14 14 Blood Pressure 118/61 116/63 Pulse Oximetry 96 97 85 L Oxygen Delivery Method Nasal Cannula Oxygen Flow Rate 3 3 3 Fraction of Inspired Oxygen 32 05/24/24 05:13 Temperature Pulse Rate Respiratory Rate Blood Pressure Pulse Oximetry 92 Oxygen Delivery Method Oximask Oxygen Flow Rate 8 Fraction of Inspired Oxygen 40 Fraction of Inspired Oxygen 40 SaO2/FiO2 Ratio 230 Oxygen Delivery Method Oximask Oxygen Flow Rate 8 Narrative Exam Narrative: GENERAL: This is a well-nourished, well-developed patient, in no apparent distress. HEAD: Atraumatic. Normocephalic. No temporal or scalp tenderness. EYES: Pupils equal round and reactive. Extraocular motions intact. No scleral icterus. No injection or drainage. ENT: Mucous membranes pink and moist. NECK: Trachea midline. No JVD, bruits or lymphadenopathy. Supple, nontender, no meningeal signs. CARDIOVASCULAR: Regular rate and rhythm without murmurs, gallops, or rubs. RESPIRATORY: Decreased breath sounds left base. GASTROINTESTINAL: Abdomen soft, non-tender, nondistended. EXTREMITIES: No clubbing, cyanosis, or edema. BACK: Nontender without deformity or crepitance. No flank tenderness. NEUROLOGIC: Alert, oriented, speech fluent, full upper and lower motor strength, no focal deficits evident. DERMATOLOGIC: No rashes or skin lesions. Objective Labs 05/24/24 05:26 05/24/24 05:26 Labs: Laboratory Results - last 24 hr 05/23/24 05/23/24 05/24/24 21:23 22:01 05:26 WBC 1.0 L* 1.1 L* RBC 2.68 L 2.50 L Hgb 10.3 L 9.5 L Hct 30.7 L 28.6 L MCV 114.3 H 114.1 H MCH 38.3 H 38.0 H MCHC 33.5 33.3 RDW 20.4 H 20.2 H Plt Count 244 223 Neut % (Auto) Not Reportable Not Reportable Lymph % (Auto) Not Reportable Not Reportable [place] % (Auto) Not Reportable Not Reportable Eos % (Auto) Not Reportable Not Reportable Baso % (Auto) Not Reportable Not Reportable Lymph # (Auto) Not Reportable Not Reportable [place] # (Auto) Not Reportable Not Reportable Baso # (Auto) Not Reportable Not Reportable Total Counted 100 Seg Neutrophils % 48.0 Band Neutrophils % 6.0 Lymphocytes % (Manual) 42.0 Monocytes % (Manual) 2.0 Basophils % (Manual) 1.0 Metamyelocytes % 1.0 H Neutrophils # (Manual) 540 L Hypogranular Neuts Cancelled RBC Morphology See below Anisocytosis 1+ H Sodium 133 L 135 L Potassium 4.0 3.8 Chloride 103 106 Carbon Dioxide 25 24 BUN 9 10 Creatinine 0.50 L 0.46 L Estimated GFR > 60 > 60 BUN/Creatinine Ratio 18.0 21.7 Glucose 122 H 108 Lactate 0.7 Calcium 8.9 8.5 Total Bilirubin 0.6 0.5 AST 52 H 40 H ALT 35 H 33 Alkaline Phosphatase 245 H 221 H Total Creatine Kinase 26 L Troponin I 0.012 Total Protein 7.1 6.2 L Albumin 3.7 3.3 L Globulin 3.4 2.9 Albumin/Globulin Ratio 1.1 1.1 Procalcitonin 0.460 Chlamy pneumoniae PCR Not detected Adenovirus (PCR) Not detected B. pertussis DNA (PCR) Not detected B.parapertussis DNA PCR Not detected Coronavirus OC43 (PCR) Not detected Coronavirus HKU1 (PCR) Not detected Coronavirus 229E (PCR) Not detected SARS-CoV-2 (PCR) Not detected Coronavirus NL63 (PCR) Not detected Human Metapneumovir PCR Not detected Influenza Type A (PCR) Not detected Influenza Type B (PCR) Not detected M. pneumoniae (PCR) Not detected Parainfluenza 1 (PCR) Not detected Parainfluenza 2 (PCR) Not detected Parainfluenza 3 (PCR) Not detected Parainfluenza 4 (PCR) Not detected RSV (PCR) Not detected Entero/Rhino (PCR) Not detected PFSH Medical History Adnexal mass Urethral prolapse Pyoderma gangrenosum Drug-induced adrenocortical insufficiency Acute hypoxic respiratory failure Acute myelogenous leukemia Trigger finger, right ring finger Post-COVID syndrome DVT (deep venous thrombosis) Eczematous dermatitis Osteopenia Family history of melanoma Personal history of malignant melanoma Family history of colon cancer BPPV (benign paroxysmal positional vertigo) Urinary incontinence Chronic insomnia Irritable bowel syndrome with diarrhea GERD without esophagitis Impaired fasting glucose Acquired hypothyroidism Mixed hyperlipidemia History of traumatic brain injury Actinic keratosis (~1999) Mumps Measles (~1953) Chicken pox (~1951) Tinnitus (~2007) Thyroid nodule (~1980) Skin cancer (~1999) Melanoma (~2019) Surgical History Anesthesia History of varicose vein stripping (~1985) History of thyroidectomy (~1975) History of hysterectomy (~2010) Family History Father Cancer Mother Cancer Brother Cancer Grandfather Diabetes mellitus Grandmother Cancer Social History details: (Juan), four daughters household members: spouse Smoking Status: Never smoker alcohol intake: current Assessment & Plan Assessment & Plan narrative: 1. Neutropenic fever in the setting of pneumonia. Admit patient to medical telemetry inpatient. Continue to treat with IV Cefepime and vancomycin plus home Levaquin. Monitor for sepsis. 2. Mild acute respiratory failure with hypoxemia. Likely from above. Treat as above and monitor O2 for now. 3. Mild transaminitis. Monitor LFTs for now. 4. Headache, likely reactive. No evidence of LIGHTING DIRECTOR infection or metastatic disease. Treat symptomatically and monitor. 5. Hypothyroidism. Continue home Synthroid. 6. Hyperlipidemia. Continue home statin. 7. DVT. Continue home Xarelto. 8. Code status. Full code. Disposition likely home in 2 to 3 days. Quality VTE Deep Vein Thrombosis/Pulmonary Embolism Present on Admission: No PROFEE Charge codes Subsequent inpatient/observation care: [id number]
[2024-05-24 07:54] LABS: Anisocytosis 1+; Macrocytosis 1+; Neutrophils Absolute Manual 539 /uL (3000-5900); Total Cells Counted 100
--- NOTE | 2024-05-24 10:05 | PT.IIE ---
Current Diagnoses Pneumonia, unspecified organism (05/23/24) Surgical History (Last Reviewed 03/12/24 @ 07:04 by Grabiel Montoya MD) Anesthesia History of hysterectomy (~2010) History of thyroidectomy (~1975) History of varicose vein stripping (~1985) Medical History (Last Reviewed 05/23/24 @ 09:39 by Mingo Schuler DO) Acquired hypothyroidism Actinic keratosis (~1999) Acute hypoxic respiratory failure Acute myelogenous leukemia Adnexal mass BPPV (benign paroxysmal positional vertigo) Chicken pox (~1951) Chronic insomnia Drug-induced adrenocortical insufficiency DVT (deep venous thrombosis) Eczematous dermatitis Family history of colon cancer Family history of melanoma GERD without esophagitis History of traumatic brain injury Impaired fasting glucose Irritable bowel syndrome with diarrhea Measles (~1953) Melanoma (~2018) Mixed hyperlipidemia Mumps Osteopenia Personal history of malignant melanoma Post-COVID syndrome Pyoderma gangrenosum Skin cancer (~1999) Thyroid nodule (~1980) Tinnitus (~2007) Trigger finger, right ring finger Urethral prolapse Urinary incontinence Physical Therapy Inpatient Evaluation/Re-Eval M1 PT/OT-IP Prior Functional Status Start: 05/24/24 12:25 Freq: NEEDED Status: Active Protocol: Document 05/24/24 10:05 AB (Rec: 05/24/24 12:36 AB [id number]) Medical Review Prior Functional Status Medical History Reviewed Yes Communication able to make needs known Mobility and Gait pt stated that she was independent with all mobilities and ambulation without AD Social History Household Members spouse Living Arrangements House Number of Floors (Floors) One Floor Number of Stairs To Enter/Railing? no steps to enter Home Environment Standard Height Toilet,Walk in Shower Home Equipment Front Wheel Walker,Shower Seat with Backrest,Hand Held Shower Additional Social History Comment pt has an adjustable bed M2 PT-IP Current Condition Start: 05/24/24 12:25 Freq: NEEDED Status: Active Protocol: Document 05/24/24 10:05 AB (Rec: 05/24/24 12:36 AB [id number]) Physical Therapy Current Condition Current Condition Evaluation Date 05/24/24 Treatment Diagnosis PNA; AML; difficulty in walking Onset Date 05/23/24 M3 PT-IP Subjective Start: 05/24/24 12:25 Freq: NEEDED Status: Active Protocol: Document 05/24/24 10:05 AB (Rec: 05/24/24 12:36 AB [id number]) Subjective Physical Therapy Visit Type Type Initial Evaluation Visit Start Time 10:05 Visit Stop Time 10:30 Number of ENTERPRISE APPLICATION ARCHITECT Visits 0 Physical Therapy Visit Comments Patient Comments agreeable to do PT Therapy Pain Assessment Pain When Pain Assessed At Rest Location Head Intensity 3 Scale Used Numeric (0 - 10) Pain Management Techniques Distraction,Modification of Treatment M4 PT-IP Mobility and Gait Start: 05/24/24 12:25 Freq: NEEDED Status: Active Protocol: Document 05/24/24 10:05 AB (Rec: 05/24/24 12:36 AB [id number]) PT-Bed Mobility Assessment Supine to Sit Supine to Sit Standby Assistance Sit to Supine Sit to Supine Standby Assistance PT-Transfer Assessment Sit to and From Stand Sit to and from Stand Contact Guard Assistance,1 Person Assistance,Use of Upper Extremities Equipment Transfer Assistive Device Gait Belt,Front Wheeled Walker Orthotic/Prosthetic Devices or Brace: No Transfer Ability Level of Assist Contact Guard Assistance,1 Person Assistance,Use of Upper Extremities Comments Mobility Comments pt supine in bed and agreeable to do PT. O2 sat wtih 7L/min O2: 93-94%. Obtained PLOF and home set up. pt completed supine to sit SBA . able to sit on EOB SBA. completed sit to stand CGA and ambulated in room using FWW CGA ~ 60 ft and cues for safety. presents with slow unsteady gait with decrease LE elevation. pt requested to go back to bed and does not want to sit up on the chair. stated that she was not able to sleep last night. pt sat on EOB and completed bed mobility sit to supine SBA. positioned pt in bed. call light and table placed within reach. Gait Assessment Gait Gait Assistance Required: Contact Guard Assist Distance (Feet) 60 Able to Maintain Weight Bearing Status Yes During Gait Assistive Devices Assistive Device Gait Belt,Front Wheeled Walker Orthotic/Prosthetic Devices or Brace: No Gait Deviations General Gait Pattern Decreased Stride Length, Decreased Feet Clearance,Step- to Gait Factors Limiting Gait Function Factors Limiting Gait Function Decreased Activity Tolerance, Decreased Strength,Difficulty Following Directions,Limited Range of Motion,Pain,Poor Balance,Respiratory Distress PT-Balance Assessment Sitting Balance and Reactions Static Sitting Balance Ability Normal Dynamic Sitting Balance Ability Good Standing Balance and Reactions Static Standing Balance Ability Good Dynamic Standing Balance Ability Fair Device Used FWW M5 PT-IP Objective Assessments Start: 05/24/24 12:25 Freq: NEEDED Status: Active Protocol: Document 05/24/24 10:05 AB (Rec: 05/24/24 12:36 AB [id number]) Orientation Orientation/Cognition Level of Alertness Alert Orientation Name,Place,Situation Safety Awareness Understands Safety Issues Memory Description No Deficits Noted Gross Range of Motion Lower Extremity ROM Assessment Within Functional Limits Strength Lower Extremity Strength Assessment Within Functional Limits Muscle Tone Muscle Tone WNL Yes M6 PT-IP Treatment Start: 05/24/24 12:25 Freq: NEEDED Status: Active Protocol: Document 05/24/24 10:05 AB (Rec: 05/24/24 12:36 AB [id number]) Physical Therapy Treatment Education Education Provided Safety M7 PT-IP Assessment and Plan Start: 05/24/24 12:25 Freq: NEEDED Status: Active Protocol: Document 05/24/24 10:05 AB (Rec: 05/24/24 12:36 AB [id number]) PT Summary Assessment and Plan Potential Rehabilitation Potential Fair Status of Condition at Evaluation Evolving Summary Impairments Pain,ROM,Strength,Balance, Coordination,Sensation,Bed Mobility,Transfers,Gait, Activity Tolerance Assessment Summary pt is a 74 y/o F who presented to the ED with h/o and fever. pt admitted for PNA. pt also has dx of acute myeloblastic leukemia and is undergoing chemotherapy. pt requiring CGA with transfers and ambulation using FWW and needing O2 supplement at this time. pt has decrease activity tolerance affecting independence. will continue to assess progress. pt lives and spouse who will be able to assist pt. Goals Bed Mobility Goal Independent Transfer Goal Independent,Front Wheeled Walker Gait Goal Independent,Front Wheel Walker Gait Distance 200 Other Goals improve transfers and ambulation without AD mod I ~ 250 ft Days to Meet Goals 10 Frequency of Treatment Frequency Of Treatment Once a Day Treatment Plan Physical Therapy Treatment Plan Bed Mobility Training,Transfer Training,Gait Training, Therapeutic Exercise,Balance Retraining,Discharge Planning, Hot or Cold Pack,Neuromuscular Re-ed,Coordination Retraining Precautions Other Precautions contact precaution Recommendations To Nursing Amount of Assist Needed 1 Person Assist Discharge Recommendations PT Discharge Recommendations Home with Assistance,Home Health Transportation Needs at Discharge Private Vehicle
[2024-05-24] MEDS: GABAPENTIN 300 MG CAPSULE PO (10:54)
[2024-05-24] MEDS: levoFLOXacin 250 MG TABLET 750 MG PO (10:54)
[2024-05-24] MEDS: APIXABAN 5 MG TABLET PO ×2 (10:54→20:46)
[2024-05-24] MEDS: ACYCLOVIR 400 MG TABLET 800 MG PO ×2 (10:54→20:46)
[2024-05-24] MEDS: POTASSIUM CHLORIDE 20 MEQ TAB PO ×2 (10:54→20:46)
[2024-05-24] MEDS: ACETAMINOPHEN 325 MG TABLET 650 MG PO ×2 (10:55→17:55)
[2024-05-24] MEDS: CEFEPIME 2 GM in SODIUM CHLORIDE 0.9% 100 ML IV ×2 (10:55→22:43)
[2024-05-24] MEDS: VANCOMYCIN 1,250 MG/250 ML PIGGYBACK 250 MG IV ×2 (12:57→23:35)
[2024-05-24] MEDS: HYDROMORPHONE 2 MG TABLET PO (12:57)
--- NOTE | 2024-05-24 13:56 | CM.DANOTE ---
Patient is a 74 year old female who admitted INPT Status on 05/23/24 to the care of the hospitalist team. PCP: Dr. Montoya. Payer: confirmed: [facility]. Patient came to the hospital via private vehicle secondary to having weakness and coughing for the last 2-3 days. Pt with hx of AML with chemo tx currently every 2 weeks and admitted with Pneumonia and Neutorpenia. Patient established with a rock mason apprentice. Met with patient and adult Dtr Angy in the room. Confirmed that she and her spouse reside in [place]. Confirmed that she is independent at her baseline with ADLs and that spouse provides any assist needed as she has been going through her Chemo treatments. Dtr states that pt preference is to d/c home when stable and pt has hx of needing home oxygen in the past for a few weeks but does not use oxygen at baseline. Pt currently on 3LO2. They deny any hx of HH or SNF and do not anticipate any needs at d/c at this time and Dtr states she lives in [place] and can be available whenever needed as well. Dtr or spouse can provide transport at d/c. Plan: SW to follow closely for plan of discharge home with family support and any further identified discharge planning needs. JAVON Fitzpatrick Discharge Planning/Care Management CM Discharge Assessment Start: 05/24/24 13:54 Freq: Status: Active Protocol: Document 05/24/24 13:54 BF (Rec: 05/24/24 13:56 BF [id number]) Discharge Planning Assessment Assigned Registered Nurse Cardiac JAVON Zamora DPOA/Assigned Designee Name spouse Juan Contact Information [phone] Advance Directives? Yes Advance Directives on File No History Provided By Patient,Family Member,Medical Record Has Patient been admitted in last 30 No days? Comment last admit in Aug 2023 and discharged home with family Prior Living Arrangements House Household Members spouse Type of transporation used prior to Relies on Others admit Independent with ADL's Yes Is patient alert and oriented? Yes Needs Assistance With Meal Prep,Home Chores / Shopping Caregiver for Another No Barriers to Discharge No Comment Has supportive spouse and Dtr in [place] Discharge Plan Home Transportation Arrangement Spouse or Dtr Referrals Initiated None needed Whiteboard Updated in Patient Room with Yes name and ext. # of Registered Nurse Cardiac Review Status In Process Please Provide Date Initial DC 05/24/24 Assessment Was Performed Next Review Type Continued Stay Review
[2024-05-24] MEDS: DAPSONE 25 MG 50 EACH PO (14:29)
[2024-05-24] MEDS: ONDANSETRON 4 MG/2 ML INJ IV (15:17)
[2024-05-24] MEDS: HYDROMORPHONE 1 MG INJ IV ×2 (15:27→18:43)
[2024-05-24] MEDS: PRAVASTATIN 20 MG TABLET 80 MG PO (20:46)
[2024-05-24] MEDS: GABAPENTIN 600 MG TABLET PO (20:46)
[2024-05-24] MEDS: VORICONAZOLE 50 MG 3 EACH PO (20:47)
[2024-05-24] MEDS: diphenhydrAMINE 25 MG TABLET 75 MG PO (20:47)
[2024-05-24] MEDS: BUTALB/APAP/CAFFEINE 50/325/40 TABLET 1 EACH PO (22:43)
[2024-05-24] MEDS: SUMAtriptan 25 MG TABLET PO (22:44)
[2024-05-25] VITALS (15 sets, daily range): BP systolic 107–140; BP diastolic 54–96; PULSE 101–126; RESP 18–24; TEMP 36.8–39.6; O2SAT 90–97
[2024-05-25] MEDS: ACETAMINOPHEN 325 MG TABLET 650 MG PO ×2 (00:14→05:26)
[2024-05-25] MEDS: PANTOPRAZOLE DR 20 MG TABLET PO (05:16)
[2024-05-25] MEDS: LEVOTHYROXINE 100 MCG TABLET PO (05:16)
[2024-05-25 06:06] LABS: Add Manual Diff / Slide Review NO; Basophils Absolute Auto 0 /uL (0-100); Basophils Percent Auto 0.8 % (0-2); Eosinophils Absolute Auto 100 /uL (0-450); Hematocrit 30.2 % (36-46); Hemoglobin 9.9 g/dL (12.0-16.0); Lymphocytes Absolute Auto 300 /uL (1100-4500); Lymphocytes Percent Auto 25.6 % (25-40); Mean Corpuscular HGB Conc 32.8 % (30-36); Mean Corpuscular Hemoglobin 37.5 PG (26-34); Mean Corpuscular Volume 114.5 fL (80-100); Monocytes Absolute Auto 0 /uL (0-900); Monocytes Percent Auto 1.2 % (3-14); Neutrophils Absolute Auto 800 /uL (1500-7000); Neutrophils Percent Auto 66.4 % (50-75); Platelet Count 232 X10^3/uL (150-400); Red Blood Cell Count 2.64 X10^6/uL (4.0-5.2); Red Cell Distribution Width 19.8 % (11.6-14.8)
[2024-05-25 06:14] LABS: White Blood Cell Count 1.1 X10^3/uL (4.5-11.0)
[2024-05-25 06:32] LABS: BUN Creatinine Ratio 16.9 (6-22); Blood Urea Nitrogen 10 mg/dL (7-17); Calcium 9.2 mg/dL (8.4-10.2); Carbon Dioxide 23 mmol/L (22-32); Chloride 103 mmol/L (98-107); Estimated Glomerular Filt Rate > 60 mL/min (>60); Glucose 94 mg/dL (80-110); HEMOLYSIS < 15 (0-50); Potassium 4.1 mmol/L (3.4-5.1); Sodium 132 mmol/L (137-145)
[2024-05-25] MEDS: KETOROLAC 30 MG/ML VIAL 15 MG IV (07:07)
--- NOTE | 2024-05-25 07:17 | P.PN_ITS ---
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 Of note, the patient was seen earlier today in our ER department. The patient was seen for a headache with negative work up including brain MRI. The patient was sent home with her . Per the report, after shortly being home, the patient developed a fever of 103.8F. The patient also has increased fatigue, but denies any nausea, vomiting, chest pain, down pain, coughing, or increasing shortness of breath. In our emergency room, the patient was stable with mild tachycardia. The patient was requiring 2L of oxygen per nasal cannula. Chest x-ray suggested focal pneumonia. The patient lab show neutropenia. Due to pneumonia and neutropenic fever our ER physician did cover the patient for Cefepine and vancomycin. Blood cultures were drawn. The patient however, was not septic. Interval history: The patient was given Fioricet overnight good improvement in headache. She has had persistent fevers since yesterday afternoon to 102-103 degrees F range. She reports feeling better this morning but feels dehydrated. Exam Vital Signs (past 8 hours): - 05/25/24 00:14 05/25/24 00:18 05/25/24 01:05 Temperature 103 F H 103.0 F H 102.3 F H Pulse Rate 108 H Respiratory Rate 18 Blood Pressure 108/58 L Pulse Oximetry 91 Oxygen Flow Rate 5 05/25/24 04:30 05/25/24 05:26 05/25/24 06:30 Temperature 102.8 F H 103.2 F H 103.1 F H Pulse Rate 120 H Respiratory Rate 20 Blood Pressure 119/62 Pulse Oximetry 91 Oxygen Flow Rate 5 05/25/24 07:07 Temperature 103.1 F H Pulse Rate Respiratory Rate Blood Pressure Pulse Oximetry Oxygen Flow Rate Fraction of Inspired Oxygen 35 SaO2/FiO2 Ratio 268 Oxygen Delivery Method Nasal Cannula Oxygen Flow Rate 5 Narrative Exam Narrative: GENERAL: This is a well-nourished, well-developed patient, in no apparent distress. EYES: Pupils equal round and reactive. Extraocular motions intact. No scleral icterus. No injection or drainage. ENT: Mucous membranes pink and moist. NECK: Trachea midline. No JVD, bruits or lymphadenopathy. Supple, nontender, no meningeal signs. CARDIOVASCULAR: Regular rate and rhythm without murmurs, gallops, or rubs. RESPIRATORY: Decreased breath sounds left base. GASTROINTESTINAL: Abdomen soft, non-tender, nondistended. EXTREMITIES: No clubbing, cyanosis, or edema. NEUROLOGIC: Alert, oriented, speech fluent, full upper and lower motor strength, no focal deficits evident. DERMATOLOGIC: No rashes or skin lesions. Objective Imaging Chest x-ray: Radiologist's impression: Multifocal pulmonary infiltrate, increased from the prior Labs 05/25/24 05:27 05/25/24 05:27 Labs: Laboratory Results - last 24 hr 05/24/24 05/25/24 05:26 05:27 WBC 1.1 L* RBC 2.64 L Hgb 9.9 L Hct 30.2 L MCV 114.5 H MCH 37.5 H MCHC 32.8 RDW 19.8 H Plt Count 232 Neut % (Auto) 66.4 Lymph % (Auto) 25.6 [place] % (Auto) 1.2 L Eos % (Auto) 6.0 H Baso % (Auto) 0.8 Neut # (Auto) 800 L Lymph # (Auto) 300 L [place] # (Auto) 0 Eos # (Auto) 100 Baso # (Auto) 0 Total Counted 100 Seg Neutrophils % 40.0 Band Neutrophils % 9.0 H Lymphocytes % (Manual) 45.0 Monocytes % (Manual) 1.0 L Eosinophils % (Manual) 3.0 Basophils % (Manual) 1.0 Myelocytes % 1.0 H Neutrophils # (Manual) 539 L RBC Morphology See below Anisocytosis 1+ H Macrocytosis 1+ H Sodium 132 L Potassium 4.1 Chloride 103 Carbon Dioxide 23 BUN 10 Creatinine 0.59 Estimated GFR > 60 BUN/Creatinine Ratio 16.9 Glucose 94 Calcium 9.2 [facility] Medical History Adnexal mass Urethral prolapse Pyoderma gangrenosum Drug-induced adrenocortical insufficiency Acute hypoxic respiratory failure Acute myelogenous leukemia Trigger finger, right ring finger Post-COVID syndrome DVT (deep venous thrombosis) Eczematous dermatitis Osteopenia Family history of melanoma Personal history of malignant melanoma Family history of colon cancer BPPV (benign paroxysmal positional vertigo) Urinary incontinence Chronic insomnia Irritable bowel syndrome with diarrhea GERD without esophagitis Impaired fasting glucose Acquired hypothyroidism Mixed hyperlipidemia History of traumatic brain injury Actinic keratosis (~1999) Mumps Measles (~1953) Chicken pox (~1951) Tinnitus (~2007) Thyroid nodule (~1980) Skin cancer (~1999) Melanoma (~2018) Surgical History Anesthesia History of varicose vein stripping (~1985) History of thyroidectomy (~1975) History of hysterectomy (~2010) Family History Father Cancer Mother Cancer Brother Cancer Grandfather Diabetes mellitus Grandmother Cancer Social History details: (Juan), four daughters household members: spouse Smoking Status: Never smoker alcohol intake: current Assessment & Plan Assessment & Plan narrative: 1. Neutropenic fever in the setting of pneumonia/sepsis with fever and tachycardia. Admitted to medical telemetry inpatient. Persistent fevers with ANC 800 still < 48 hours into therapy, likely related to immune reconstitution. Continue to treat with IV Cefepime and vancomycin plus home Levaquin and Voriconazole. Check MRSA and DC vancomycin if negative. 2. Mild acute respiratory failure with incrased hypoxemia. Likely from above with immune reconstitution following chemotherapy. Treat as above and monitor O2 for now. 3. Mild transaminitis. Monitor LFTs for now. 4. Headache, likely reactive. No evidence of SAP SENIOR DEVELOPER infection or metastatic disease. Treat symptomatically and monitor. 5. Dehydration. Give 1 liter NS today, encourage oral intake. 6. Hypothyroidism. Continue home Synthroid. 7. Hyperlipidemia. Continue home statin. 8. DVT. Continue home Xarelto. 9. Code status. Full code. Disposition likely home in 2 days. Quality VTE Deep Vein Thrombosis/Pulmonary Embolism Present on Admission: No IH PROFEE Charge codes Subsequent inpatient/observation care: [id number]
[2024-05-25 07:21] LABS: Anisocytosis 1+; Macrocytosis 1+
--- NOTE | 2024-05-25 07:22 | DI.RAD.S_ITS ---
PROCEDURE: XR CHEST 1V INDICATIONS: fever TECHNIQUE: One view of the chest was acquired. COMPARISON: [facility], CR, XR CHEST 1V, 05/23/2024, 21:05. FINDINGS: Surgical changes and devices: Right-sided Port-A-Cath in place. Lungs and pleura: Multifocal right-sided pulmonary infiltrate associated with left basilar infiltrate as well. Mediastinum: Mediastinal contours appear normal. Heart size is normal. Bones and chest wall: No suspicious bony lesions. Overlying soft tissues appear unremarkable. IMPRESSION: Multifocal pulmonary infiltrate, increased from the prior Approved by: Jon Garcia M.D. on 05/25/2024 at 9:40
[2024-05-25 07:23] LABS: Polychromasia 1+
[2024-05-25] MEDS: APIXABAN 5 MG TABLET PO ×2 (09:43→20:13)
[2024-05-25] MEDS: ACYCLOVIR 400 MG TABLET 800 MG PO ×2 (09:43→20:13)
[2024-05-25] MEDS: DAPSONE 25 MG 50 EACH PO (09:44)
[2024-05-25] MEDS: VORICONAZOLE 50 MG 3 EACH PO ×2 (09:44→20:14)
[2024-05-25] MEDS: levoFLOXacin 250 MG TABLET 750 MG PO (09:44)
[2024-05-25] MEDS: GABAPENTIN 300 MG CAPSULE PO (09:44)
[2024-05-25] MEDS: POTASSIUM CHLORIDE 20 MEQ TAB PO ×2 (09:44→20:14)
[2024-05-25 11:13] LABS: MRSA (Nasal) PCR NOT DETECTED (Not Detect)
[2024-05-25] MEDS: LIDOCAINE 1% 20 ML 3 ML SUBCUT (11:30)
--- NOTE | 2024-05-25 11:51 | PC.NURSE ---
1130 - Patient states CHG will cause her skin to become extremely itchy, red, and irritated. Betadine used as substitute when accessing port. GINA Lindquist and provider made aware of CHG reaction with patient.
[2024-05-25] MEDS: SODIUM CHLORIDE 0.9% 1,000 ML 100 ML IV (12:00)
[2024-05-25] MEDS: CEFEPIME 2 GM in SODIUM CHLORIDE 0.9% 100 ML IV ×2 (12:00→22:28)
[2024-05-25] MEDS: SUMAtriptan 25 MG TABLET PO ×2 (12:11→17:19)
--- NOTE | 2024-05-25 13:24 | CM.DPC ---
DCP Cont. Reviewed EMR and team rounds for status updates. Per Hospitalist, pt will likely need 2-more days before being medically stable for d/c. Will continue to monitor for any further evolving needs.
[2024-05-25] MEDS: ACETAMINOPHEN IV 1,000 MG/100 ML VIAL 400 MG IV ×2 (13:26→20:12)
--- NOTE | 2024-05-25 14:55 | PT-IP ANOTE ---
PT reviews chart and checks on pt. Chest diagnostics reveal increased infiltrate. Pt resting in bed, use of 5L O2 and sats are 93% and HR is 107 BPM. Pt appears dyspneic at rest. Pt, family and PT agree to hold PT this afternoon.
[2024-05-25] MEDS: diphenhydrAMINE 25 MG TABLET 75 MG PO (20:13)
[2024-05-25] MEDS: PRAVASTATIN 20 MG TABLET 80 MG PO (20:13)
[2024-05-25] MEDS: GABAPENTIN 600 MG TABLET PO (20:14)
[2024-05-26] VITALS (11 sets, daily range): BP systolic 99–147; BP diastolic 47–68; PULSE 90–131; RESP 14–32; TEMP 36.2–38.1; O2SAT 90–96
[2024-05-26 05:06] LABS: Hematocrit 27.8 % (36-46); Hemoglobin 9.4 g/dL (12.0-16.0); Mean Corpuscular HGB Conc 33.8 % (30-36); Mean Corpuscular Hemoglobin 38.8 PG (26-34); Mean Corpuscular Volume 114.9 fL (80-100); Platelet Count 256 X10^3/uL (150-400); Red Blood Cell Count 2.42 X10^6/uL (4.0-5.2); Red Cell Distribution Width 19.7 % (11.6-14.8)
[2024-05-26] MEDS: ONDANSETRON 4 MG/2 ML INJ IV (05:10)
[2024-05-26] MEDS: ACETAMINOPHEN IV 1,000 MG/100 ML VIAL 400 MG IV (05:10)
[2024-05-26 05:12] LABS: Add Manual Diff / Slide Review YES; White Blood Cell Count 0.9 X10^3/uL (4.5-11.0)
[2024-05-26 05:16] LABS: Alanine Aminotransferase 46 IU/L (<35); Albumin 3.4 g/dL (3.5-5.0); Albumin Globulin Ratio 1.1 (1.0-2.8); Alkaline Phosphatase 366 U/L (38-126); Aspartate Aminotransferase 52 IU/L (14-36); BUN Creatinine Ratio 23.3 (6-22); Bilirubin Total 1.1 mg/dL (0.2-1.3); Blood Urea Nitrogen 14 mg/dL (7-17); Calcium 9.3 mg/dL (8.4-10.2); Carbon Dioxide 22 mmol/L (22-32); Chloride 105 mmol/L (98-107); Estimated Glomerular Filt Rate > 60 mL/min (>60); Globulin 3.2 g/dL (1.7-4.1); Glucose 104 mg/dL (80-110); HEMOLYSIS < 15 (0-50); Potassium 4.2 mmol/L (3.4-5.1); Sodium 134 mmol/L (137-145); Total Protein 6.6 g/dL (6.3-8.2)
[2024-05-26 06:00] LABS: Neutrophils Absolute Manual 495 /uL (3000-5900); Nucleated Red Blood Cells 2 #/Diff; Total Cells Counted 100
[2024-05-26 06:01] LABS: Anisocytosis 1+; Macrocytosis 1+; Platelet Estimate Adequate on smear
--- NOTE | 2024-05-26 06:54 | PC.NURSE ---
manager progressive care RN note pt fatigued, flat affect and forgetful at times, x2 assist to bedside commode, SOBOE, 8L oximask while sleeping due to open mouth breathing, c/o fever and nausea overnight, IV meds given with effect, bed alarm on and call tolentino within reach
[2024-05-26] MEDS: DAPSONE 25 MG 50 EACH PO (09:00)
[2024-05-26] MEDS: VORICONAZOLE 50 MG 3 EACH PO ×2 (09:00→21:25)
[2024-05-26] MEDS: APIXABAN 5 MG TABLET PO (09:01)
[2024-05-26] MEDS: POTASSIUM CHLORIDE 20 MEQ TAB PO ×2 (09:01→21:25)
[2024-05-26] MEDS: GABAPENTIN 300 MG CAPSULE PO (09:01)
[2024-05-26] MEDS: ACYCLOVIR 400 MG TABLET 800 MG PO ×2 (09:01→21:25)
[2024-05-26] MEDS: levoFLOXacin 250 MG TABLET 750 MG PO (09:01)
[2024-05-26] MEDS: LEVOTHYROXINE 100 MCG TABLET PO (09:03)
[2024-05-26] MEDS: PANTOPRAZOLE DR 20 MG TABLET PO (09:03)
[2024-05-26] MEDS: CEFEPIME 2 GM in SODIUM CHLORIDE 0.9% 100 ML IV ×2 (09:04→21:25)
[2024-05-26] MEDS: ACETAMINOPHEN 325 MG TABLET 650 MG PO ×3 (11:58→23:19)
[2024-05-26] MEDS: BENZONATATE 100 MG CAPSULE PO (15:04)
[2024-05-26] MEDS: BENZOCAINE/MENTHOL 1 LOZ PKT 1 EACH PO (15:04)
[2024-05-26] MEDS: METOCLOPRAMIDE 10 MG/2 ML INJ 5 MG IV (16:18)
--- NOTE | 2024-05-26 16:30 | PT-IP ANOTE ---
PT reviews chart and changing labs. Pt is supine in bed and expressing discomfort at this time, mild dyspnea with O2 face mask on. Hold PT this afternoon.
--- NOTE | 2024-05-26 17:04 | DI.CT.S_ITS ---
PROCEDURE: CT ANGIO CHEST PE PROTOCOL INDICATIONS: worsening hypoxia TECHNIQUE: After the administration of intravenous contrast, 2 mm thick sections acquired from the pulmonary apices to the posterior costophrenic angles. 3-dimensional maximum intensity projection (MIP) coronal and sagittal reformats were then acquired through the thorax. For radiation dose reduction, the following was used: automated exposure control, adjustment of mA and/or kV according to patient size. COMPARISON: [facility], CR, XR CHEST 1V, 05/25/2024, 8:14. [facility], CT, CT ANGIO CHEST PE PROTOCOL, 08/09/2023, 20:12. FINDINGS: Image quality: Diagnostic. Pulmonary arteries: There is suboptimal opacification of the pulmonary arteries. Multiple filling defects are seen in the pulmonary arteries consistent with pulmonary emboli. The largest is located in the right lower lobe pulmonary artery extending into the basilar segmental branches. Subsegmental pulmonary emboli are seen in the right middle and upper lobes and left lower lobe. Main pulmonary artery is borderline in size. No definite disproportionate right ventricular enlargement. No reflux of contrast material into the hepatic veins. Lower Neck: No enlarged lymph nodes. Thyroid: No thyroid nodules which require sonographic follow up, per consensus guidelines. Axillae: No enlarged lymph nodes. Chest Wall: Right chest Port-A-Cath Bones: Unremarkable. Lungs and Pleura: Diffuse bilateral peripheral nodular pulmonary opacities and interlobular septal thickening. Small bilateral pleural effusions with bibasilar atelectasis. Heart: Heart size is mildly enlarged. No pericardial effusion. Thoracic Vessels: No aortic aneurysm. Mediastinum and Juliet: Multiple enlarged mediastinal lymph nodes are seen, which have increased in size when compared to the CT from 08/09/2023. Esophagus: No wall thickening. Small hiatal hernia. Upper Abdomen: Possible left hydronephrosis versus parapelvic renal cysts, partially imaged. Visualized upper abdomen solid organs and bowel loops appear normal. IMPRESSION: 1. Multiple bilateral pulmonary emboli, involving the right lower lobe pulmonary artery and multiple bilateral segmental and subsegmental branches. No signs of significant right heart strain. 2. Diffuse peripheral nodular opacities in both lungs with septal line thickening. Findings are nonspecific and may be infectious or inflammatory in etiology although diffuse malignant involvement is not excluded. 3. Small bilateral pleural effusions. 4. Enlarged mediastinal lymph nodes have increased when compared to the CT from 08/09/2023. 5. Questionable left hydronephrosis versus peripelvic cysts, which are not completely imaged. If there is concern for hydronephrosis, consider renal ultrasound for further evaluation. Findings of pulmonary emboli were discussed with the referring provider, Dr. Ferrer, by telephone on 05/26/2024 6:38 PM. Approved by: Jimbo Rogel M.D. on 05/26/2024 at 18:39
--- NOTE | 2024-05-26 17:09 | PM.PN.1 ---
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 Of note, the patient was seen earlier today in our ER department. The patient was seen for a headache with negative work up including brain MRI. The patient was sent home with her . Per the report, after shortly being home, the patient developed a fever of 103.8F. The patient also has increased fatigue, but denies any nausea, vomiting, chest pain, down pain, coughing, or increasing shortness of breath. In our emergency room, the patient was stable with mild tachycardia. The patient was requiring 2L of oxygen per nasal cannula. Chest x-ray suggested focal pneumonia. The patient lab show neutropenia. Due to pneumonia and neutropenic fever our ER physician did cover the patient for Cefepine and vancomycin. Blood cultures were drawn. The patient however, was not septic. Interval history: Improving fever but worsening O2 requirements. Moved up to 7L, ordered for CTA this evening. Exam Vital Signs (past 8 hours): - 05/26/24 11:58 05/26/24 12:00 05/26/24 16:00 Temperature 100.2 F H 100.2 F H Pulse Rate 90 112 H Respiratory Rate 19 20 Blood Pressure 119/56 L Pulse Oximetry 95 93 Oxygen Flow Rate 7 Fraction of Inspired Oxygen 35 SaO2/FiO2 Ratio 268 Oxygen Delivery Method Oximask Oxygen Flow Rate 7 Narrative Exam Narrative: GENERAL: This is a well-nourished, well-developed patient, in no apparent distress. EYES: Pupils equal round and reactive. Extraocular motions intact. No scleral icterus. No injection or drainage. ENT: Mucous membranes pink and moist. NECK: Trachea midline. No JVD, bruits or lymphadenopathy. Supple, nontender, no meningeal signs. CARDIOVASCULAR: Regular rate and rhythm without murmurs, gallops, or rubs. RESPIRATORY: Decreased breath sounds left base. GASTROINTESTINAL: Abdomen soft, non-tender, nondistended. EXTREMITIES: No clubbing, cyanosis, or edema. NEUROLOGIC: Alert, oriented, speech fluent, full upper and lower motor strength, no focal deficits evident. DERMATOLOGIC: No rashes or skin lesions. Objective Labs 05/26/24 04:29 05/26/24 04:29 Labs: Laboratory Results - last 24 hr 05/26/24 04:29 WBC 0.9 L* RBC 2.42 L Hgb 9.4 L Hct 27.8 L MCV 114.9 H MCH 38.8 H MCHC 33.8 RDW 19.7 H Plt Count 256 Neut % (Auto) Not Reportable Lymph % (Auto) Not Reportable [place] % (Auto) Not Reportable Eos % (Auto) Not Reportable Baso % (Auto) Not Reportable Lymph # (Auto) Not Reportable [place] # (Auto) Not Reportable Baso # (Auto) Not Reportable Total Counted 100 Seg Neutrophils % 48.0 Band Neutrophils % 7.0 Lymphocytes % (Manual) 38.0 Monocytes % (Manual) 4.0 Blast Cells % 3.0 H Neutrophils # (Manual) 495 L Nucleated RBCs 2 H Hypogranular Neuts Cancelled Platelet Estimate Adequate on smear RBC Morphology See below Anisocytosis 1+ H Macrocytosis 1+ H Sodium 134 L Potassium 4.2 Chloride 105 Carbon Dioxide 22 BUN 14 Creatinine 0.60 Estimated GFR > 60 BUN/Creatinine Ratio 23.3 H Glucose 104 Calcium 9.3 Total Bilirubin 1.1 AST 52 H ALT 46 H Alkaline Phosphatase 366 H D Total Protein 6.6 Albumin 3.4 L Globulin 3.2 Albumin/Globulin Ratio 1.1 PFSH Medical History Adnexal mass Urethral prolapse Pyoderma gangrenosum Drug-induced adrenocortical insufficiency Acute hypoxic respiratory failure Acute myelogenous leukemia Trigger finger, right ring finger Post-COVID syndrome DVT (deep venous thrombosis) Eczematous dermatitis Osteopenia Family history of melanoma Personal history of malignant melanoma Family history of colon cancer BPPV (benign paroxysmal positional vertigo) Urinary incontinence Chronic insomnia Irritable bowel syndrome with diarrhea GERD without esophagitis Impaired fasting glucose Acquired hypothyroidism Mixed hyperlipidemia History of traumatic brain injury Actinic keratosis (~1999) Mumps Measles (~1953) Chicken pox (~1951) Tinnitus (~2007) Thyroid nodule (~1980) Skin cancer (~1999) Melanoma (~2019) Surgical History Anesthesia History of varicose vein stripping (~1985) History of thyroidectomy (~1975) History of hysterectomy (~2010) Family History Father Cancer Mother Cancer Brother Cancer Grandfather Diabetes mellitus Grandmother Cancer Social History details: (Juan), four daughters household members: spouse Smoking Status: Never smoker alcohol intake: current Assessment & Plan Assessment & Plan narrative: 1. Neutropenic fever vs bacterial pneumonia. - Continue cefepime plus home levaquin and voriconazole. - R sided pulmonary infiltrates, have previously been seen though worsening on recent CXR. Neutrophils at 495 on manual count today. - worsening O2 requirements today. Rule out PE and further assess with CTA noted below. 2. Acute respiratory failure with increased hypoxemia. - CTA ordered for today for further chest evaluation. - continue home eliquis. 3. Mild transaminitis. Monitor LFTs for now. 4. Headache, likely reactive. No evidence of BRASS MOLDER infection or metastatic disease. Treat symptomatically and monitor. 5. Dehydration. 6. Hypothyroidism. Continue home Synthroid. 7. Hyperlipidemia. Continue home statin. 8. DVT. Continue home apixaban 9. Code status. Full code. Dispo: likely in the hospital for at least 2 more days. Time-Based Coding :: [TOTAL MINUTES] spent with patient and on the chart (including review of chart, obtaining history, exam, reviewing outside data, placing orders, documenting exam and treatment plan, and counseling patient) on [DATE]. Quality VTE Deep Vein Thrombosis/Pulmonary Embolism Present on Admission: No
[2024-05-26 17:37] LABS: Appearance Urine UA CLEAR; Bilirubin Urine UA NEGATIVE (NEGATIVE); Color Urine UA YELLOW; Glucose Urine UA NEGATIVE (Negative); Ketones Urine UA TRACE (NEGATIVE); Leukocyte Esterase Urine UA NEGATIVE (NEGATIVE); Nitrite Urine UA NEGATIVE (Negative); Occult Blood Urine UA 1+ (Negative); Protein Urine UA 2+ (Negative); Specific Gravity Urine UA >=1.030 (1.000-1.035); Urobilinogen Urine UA 0.2 E.U./dL (0.2)
[2024-05-26 17:46] LABS: pH Urine UA 5.5 (4.5-8.0)
[2024-05-26 17:49] LABS: Bacteria Urine Occasional (0-1); Mucus Urine 3+ (Negative); RBC Urine 1-5/HPF (0-5/HPF); Squamous Epithelial Cell Urine 5-10 /HPF (0-5/HPF); Urine Volume 10mL (spun); WBC Urine 0-1/HPF (0-5/HPF)
[2024-05-26 17:50] LABS: Culture Indicated Urine Cult Not Indicated
--- NOTE | 2024-05-26 18:36 | PC.NURSE ---
Day shift: Patient continues to have fevers, is tachycardic. This afternoon, her oxygen needs increased from 5L NC to 8L mask. This RN called RT to come assess. Notified MD Ferrer who ordered RT consult and chest CT to rule out PE. Awaiting results of CT at this time. Pt continues to be weak and diaphoretic with little appetite and intermittent nausea. Will continue to monitor.
--- NOTE | 2024-05-26 19:16 | PM.CALLCOV.1 ---
Call Coverage Note Note Date of Patient Contact: 05/26/24 Narrative of Care Provided: CTA performed as patient developed worsening O2 requirements. Multiple subsegmental clots noted. Discussed with spouse, patient has actually been on 2.5 mg BID recently. Discussed options including heparin infusion, Lovenox, and increased apixaban dosing. Will proceed with 10 mg BID of apixaban for now. Will reach out to her oncologist tomorrow for ongoing recommendations. Will add proBNP tomorrow's labs. TTE ordered.
[2024-05-26] MEDS: APIXABAN 5 MG TABLET 10 MG PO (19:54)
[2024-05-26] MEDS: GABAPENTIN 600 MG TABLET PO (21:25)
[2024-05-26] MEDS: PRAVASTATIN 20 MG TABLET 80 MG PO (21:25)
[2024-05-26] MEDS: diphenhydrAMINE 25 MG TABLET 75 MG PO (21:25)
--- NOTE | 2024-05-26 22:38 | EKG_ITS ---
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
--- NOTE | 2024-05-26 23:33 | RT ---
2250 - pt noted with SpO2 desaturation into 88% while on 7L oxymask. Liter flow titrated to 11L and pt repositioned. Saturation and pt response assessed while on 11L. SpO2 sustaining at 91% while on 11L, also noting increased WOB and RR. Dr. Mcwilliams notified at 2305 and received order for heated high flow.
--- NOTE | 2024-05-26 23:36 | PC.NURSE ---
2235 Pt. C/O chest pain when breathing, reported pain level @ 3/10. Rt did an ECG, Dr. Mary Alice Mcwilliams notified. Doctor Poppy reviewed her ECG & he concluded that it's doesn't look ischemic & pain likely related to PE, via messaging. Heated high flow initiated per RT. Pain level is now down to 2/10, medicated with 650 mg, PO of scheduled Tylenol, will monitor.
[2024-05-27] VITALS (30 sets, daily range): BP systolic 85–137; BP diastolic 47–71; PULSE 99–124; RESP 12–32; TEMP 36–39.4; O2SAT 92–97
[2024-05-27 05:25] LABS: Hematocrit 27.3 % (36-46); Hemoglobin 9.1 g/dL (12.0-16.0); Mean Corpuscular HGB Conc 33.4 % (30-36); Mean Corpuscular Hemoglobin 38.1 PG (26-34); Mean Corpuscular Volume 114.1 fL (80-100); Platelet Count 269 X10^3/uL (150-400); Red Cell Distribution Width 19.8 % (11.6-14.8)
[2024-05-27] MEDS: ACETAMINOPHEN 325 MG TABLET 650 MG PO ×2 (05:29→15:52)
[2024-05-27] MEDS: PANTOPRAZOLE DR 20 MG TABLET PO (05:30)
[2024-05-27] MEDS: LEVOTHYROXINE 100 MCG TABLET PO (05:30)
[2024-05-27 05:34] LABS: Add Manual Diff / Slide Review YES; White Blood Cell Count 0.9 X10^3/uL (4.5-11.0)
[2024-05-27 05:45] LABS: NT-proBNP (BNP-Adult 18+) 1610 pg/mL (<450)
[2024-05-27 06:00] LABS: Neutrophils Absolute Manual 495 /uL (3000-5900); Total Cells Counted 100
[2024-05-27 06:01] LABS: Anisocytosis 1+; Macrocytosis 1+; Platelet Estimate Adequate on smear
[2024-05-27 06:13] LABS: Alanine Aminotransferase 71 IU/L (<35); Albumin 2.8 g/dL (3.5-5.0); Albumin Globulin Ratio 1.1 (1.0-2.8); Alkaline Phosphatase 501 U/L (38-126); Aspartate Aminotransferase 102 IU/L (14-36); BUN Creatinine Ratio 27.3 (6-22); Bilirubin Total 1.3 mg/dL (0.2-1.3); Blood Urea Nitrogen 15 mg/dL (7-17); Carbon Dioxide 23 mmol/L (22-32); Chloride 105 mmol/L (98-107); Estimated Glomerular Filt Rate > 60 mL/min (>60); Globulin 2.5 g/dL (1.7-4.1); Glucose 96 mg/dL (80-110); HEMOLYSIS 16 (0-50); Potassium 4.4 mmol/L (3.4-5.1); Sodium 134 mmol/L (137-145); Total Protein 5.3 g/dL (6.3-8.2)
--- NOTE | 2024-05-27 06:20 | DI.ECHO.S_ITS ---
[facility]+ [facility] : : [address] : : [place] : : [address] : : Phone: [phone] Echocardiogram Report + + :Name: KATE GANDHI Study Date: 05/27/2024 Height: 68 in : :[facility] ReadingLocation: Weight: 172 lb : : Gender: Female BSA: 1.9 m2 : :: 1950 Age: 74 yrs BP: 111/60 mmHg: :Reason For Study: Hypoxia : : Performed By: Yanni Menon : :Referring: JANELLE JEFFERS : + + Interpretation Summary The ejection fraction is estimated to be 40-45%. There is anterior and anterolateral hypokinesis from base to apical. The right ventricular systolic function is normal. Right ventricular systolic pressure is estimated to be 39 mmHg plus the clinically estimated CVP which cannot be estimated on this exam. No significant valvular abnormality. Procedure: A two-dimensional transthoracic echocardiogram with color flow and Doppler was performed. The study quality was technically adequate. There is no prior echocardiogram noted for this patient. The patient was in sinus tachycardia with heart rates between 112-118 bpm during the exam. Left Ventricle: The left ventricle is normal in size and wall thickness. The ejection fraction is estimated to be 40-45%. There is anterior and anterolateral hypokinesis from base to apical. Septal motion is consistent with conduction abnormality. Diastolic function could not be accurately assessed due to tachycardia. Right Ventricle: Borderline right ventricular enlargement. The right ventricular systolic function is normal. Atria: The left atrial size is normal. Right atrial size is normal. Doppler interrogation and injection of saline echo contrast shows no evidence for an interatrial shunt. Mitral Valve: The mitral valve is normal in structure and function. There is trace mitral regurgitation. Aortic Valve: The aortic valve is trileaflet. The aortic valve opens well. There is no aortic valve stenosis. No aortic regurgitation is present. Tricuspid Valve: The tricuspid valve is normal in structure and function. There is mild tricuspid regurgitation. Right ventricular systolic pressure is estimated to be 39 mmHg plus the clinically estimated CVP which cannot be estimated on this exam. Pulmonic Valve: The pulmonic valve leaflets are thin and pliable; valve motion is normal. There is trace pulmonic regurgitation. Great Vessels: The aortic root is normal size. The dimensions of the ascending aorta are normal. The IVC is of normal diameter and collapses greater than 50% with a sniff. This suggests a low right atrial pressure of 3 mm Hg. Pericardium/ Pleura There is a trivial pericardial effusion noted. There is no pleural effusion. MMode/2D Measurements & Calculations LVIDd: 5.5 cm LVOT diam: 2.2 cm LVIDs: 4.2 cm Ao root diam: 3.6 cm FS: 22.5 % asc Aorta Diam: 3.3 cm EPSS: 0.74 cm Ao Arch Diam (Prox Trans): 3.1 cm IVSd: 0.84 cm LVPWd: 0.67 cm LV moran. diameter/BSA (cm/m^2): 2.9 LV sys. diameter/BSA (cm/m^2): 2.2 LA A2 area: 19.2 cm2 RA long axis: 4.5 cm LA A4 area: 15.1 cm2 RA area: 11.8 cm2 LA length (vol): 4.7 cm RA vol: 26.1 ml LA vol: 52.8 ml RA : 13.6 ml/m2 LA vol index: 27.5 ml/m2 IVC diam: 1.2 cm RVD1 (basal): 4.1 cm TAPSE: 1.4 cm Doppler Measurements & Calculations Ao V2 max: 153.1 cm/sec LVOT Max Zev: 115.1 cm/sec Ao V2 mean: 105.7 cm/sec LV V1 max P.3 mmHg Ao max P.4 mmHg LV V1 VTI: 16.7 cm Ao mean P.0 mmHg NOAH(I,D): 2.8 cm2 Ao V2 VTI: 22.0 cm NOAH(V,D): 2.8 cm2 sev ratio: 0.76 NOAH indexed to BSA (cm^2/m^2): 1.5 MV E max zev: 75.9 cm/sec TR max zev: 301.1 cm/sec MV A max zev: 104.2 cm/sec TR max P.3 mmHg MV E/A: 0.73 PA V2 max: 119.3 cm/sec Med Peak E' Zev: 6.5 cm/sec PA V2 mean: 82.3 cm/sec E/E' med: 11.7 PA mean P.1 mmHg Lat Peak E' Zev: 10.1 cm/sec PA pr(Accel): 36.6 mmHg E/E' lat: 7.5 E/e' average: 9.6 MV dec time: 0.14 sec SVLVOT): 61.6 ml Reading Physician:ASHLEY
--- NOTE | 2024-05-27 06:53 | PC.NURSE ---
Temp. 103.0 Tylenol 650 mg. PO admin. rechecked 102.5, notified Dr. Mary Alice Mcwilliams & also notified WBC 0.9. Reordered Tylenol IV, Echo doppler done. Ice pack applied, will monitor &report to day RN
[2024-05-27] MEDS: ACYCLOVIR 400 MG TABLET 800 MG PO ×2 (09:34→20:27)
[2024-05-27] MEDS: DAPSONE 25 MG 50 EACH PO (09:34)
[2024-05-27] MEDS: GABAPENTIN 300 MG CAPSULE PO (09:34)
[2024-05-27] MEDS: APIXABAN 5 MG TABLET 10 MG PO ×2 (09:34→20:27)
[2024-05-27] MEDS: VORICONAZOLE 50 MG 3 EACH PO ×2 (09:35→20:20)
[2024-05-27] MEDS: levoFLOXacin 250 MG TABLET 750 MG PO (09:35)
[2024-05-27] MEDS: POTASSIUM CHLORIDE 20 MEQ TAB PO ×2 (09:35→20:28)
[2024-05-27] MEDS: CEFEPIME 2 GM in SODIUM CHLORIDE 0.9% 100 ML IV ×2 (10:44→18:36)
--- NOTE | 2024-05-27 10:45 | PT.IPTN ---
Current Diagnoses Pneumonia, unspecified organism (05/23/24) Physical Therapy Treatment Note M2 PT-IP Current Condition Start: 05/24/24 12:25 Freq: NEEDED Status: Active Protocol: Document 05/24/24 10:05 AB (Rec: 05/24/24 12:36 AB [id number]) Physical Therapy Current Condition Current Condition Evaluation Date 05/24/24 Treatment Diagnosis PNA; AML; difficulty in walking Onset Date 05/23/24 M3 PT-IP Subjective Start: 05/24/24 12:25 Freq: NEEDED Status: Active Protocol: Document 05/27/24 10:45 AB (Rec: 05/27/24 12:38 AB [id number]) Subjective Physical Therapy Visit Type Type Treatment Note Visit Start Time 10:45 Visit Stop Time 10:55 Number of BATTERY ASSEMBLER DRY CELL Visits 0 M4 PT-IP Mobility and Gait Start: 05/24/24 12:25 Freq: NEEDED Status: Active Protocol: Document 05/27/24 10:45 AB (Rec: 05/27/24 12:38 AB [id number]) PT-Transfer Assessment Sit to and From Stand Sit to and from Stand Moderate Assistance,2 Person Assistance,Use of Upper Extremities Equipment Transfer Assistive Device Gait Belt,Front Wheeled Walker Orthotic/Prosthetic Devices or Brace: No Transfers Transfer Destination Bedside Commode Transfer Technique Stand Step Pivot Transfer Ability Level of Assist Maximum Assistance,2 Person Assistance,Use of Upper Extremities Comments Mobility Comments checked with nurse and stated that pt is weak today but wants to get up and use the bedside commode and will need assist. PT checked on pt and NAC in room. pt sitting on EOB and bedside commode positioned next to pt. Pt with high flow O2 and O2 sat at 94 %. pt completed sit to stand mod A x 2 and max cues. step transfer to bedside commode max A x 2 and max cues using FWW. pt needed assistance with brief management. max A x 1-2 for controlled descent to the chair. O2 sat checked: 94%. Left pt on bedside commode with nurse and NAC. M5 PT-IP Objective Assessments Start: 05/24/24 12:25 Freq: NEEDED Status: Active Protocol: Document 05/24/24 10:05 AB (Rec: 05/24/24 12:36 AB [id number]) Orientation Orientation/Cognition Level of Alertness Alert Orientation Name,Place,Situation Safety Awareness Understands Safety Issues Memory Description No Deficits Noted Gross Range of Motion Lower Extremity ROM Assessment Within Functional Limits Strength Lower Extremity Strength Assessment Within Functional Limits Muscle Tone Muscle Tone WNL Yes M6 PT-IP Treatment Start: 05/24/24 12:25 Freq: NEEDED Status: Active Protocol: Document 05/27/24 10:45 AB (Rec: 05/27/24 12:38 AB [id number]) Physical Therapy Treatment Education Education Provided Safety M7 PT-IP Assessment and Plan Start: 05/24/24 12:25 Freq: NEEDED Status: Active Protocol: Document 05/27/24 10:45 AB (Rec: 05/27/24 12:38 AB [id number]) PT Summary Assessment and Plan Potential Rehabilitation Potential Fair Summary Impairments Pain,ROM,Strength,Balance, Coordination,Sensation,Tone, Cognition,Bed Mobility, Transfers,Gait,Activity Tolerance Progress Towards Goals Slow Progress due to Medical Issues,Slow Progress due to Activity Tolerance Assessment Summary pt declining in mobility and now needing mod A x 2 to max A x 2 for transfers using FWW. pt presents with weakenss and also using high flow O2. pt found to have multiple PEs. d /c plan dependeng on progress: SNF vs home 29/01 and HHPT. will continue to PT to prevent further deconditioning while here in the hospital. Goals Bed Mobility Goal Independent Transfer Goal Independent,Front Wheeled Walker Gait Goal Independent,Front Wheel Walker Gait Distance 200 Other Goals improve transfers and ambulation without AD mod I ~ 250 ft Days to Meet Goals 10 Frequency of Treatment Frequency Of Treatment Once a Day Treatment Plan Physical Therapy Treatment Plan Bed Mobility Training,Transfer Training,Gait Training, Therapeutic Exercise,Balance Retraining,Discharge Planning, Hot or Cold Pack,Neuromuscular Re-ed,Coordination Retraining Precautions Other Precautions contact precaution Recommendations To Nursing Amount of Assist Needed 2 Person Assist Discharge Recommendations PT Discharge Recommendations Home with 29/01 Assist Available,Home Health,SNF Rehab,Home vs SNF Transportation Needs at Discharge Private Vehicle,Wheelchair/ Cabulance
--- NOTE | 2024-05-27 11:35 | CM.DPNOTE ---
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 Per RN report, pt on heated high flow. Per provider in morning rounds, multiple PEs found on chest X Ray and pt had a 103 fever overnight. Likely here another few days. P: anticipate home with spouse support when medically stable and OP f/u with oncology. CM team will continue to follow closely for any additional CM needs or concerns that arise. JAVON Lakhani
[2024-05-27] MEDS: ONDANSETRON 4 MG/2 ML INJ IV (14:30)
--- NOTE | 2024-05-27 15:24 | PM.PN.1 ---
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 Of note, the patient was seen earlier today in our ER department. The patient was seen for a headache with negative work up including brain MRI. The patient was sent home with her . Per the report, after shortly being home, the patient developed a fever of 103.8F. The patient also has increased fatigue, but denies any nausea, vomiting, chest pain, down pain, coughing, or increasing shortness of breath. In our emergency room, the patient was stable with mild tachycardia. The patient was requiring 2L of oxygen per nasal cannula. Chest x-ray suggested focal pneumonia. The patient lab show neutropenia. Due to pneumonia and neutropenic fever our ER physician did cover the patient for Cefepine and vancomycin. Blood cultures were drawn. The patient however, was not septic. Interval history: Fever to 103 overnight, worsening dyspnea now on heated high flow. Discussed with her outpatient fruit thinner, recommended additional coverage for possible fungal infections, there is no oncology treatments for her at this time. Exam Vital Signs (past 8 hours): - 05/27/24 08:00 05/27/24 09:13 05/27/24 12:30 Temperature 96.8 F L Pulse Rate 106 H 112 H 121 H Respiratory Rate 20 22 18 Blood Pressure 105/56 L Pulse Oximetry 96 94 93 Oxygen Flow Rate 0 Fraction of Inspired Oxygen 50 SaO2/FiO2 Ratio 268 Oxygen Delivery Method Heated High Flow Oxygen Flow Rate 0 Narrative Exam Narrative: GENERAL: This is a well-nourished, well-developed patient, in no apparent distress. EYES: Pupils equal round and reactive. Extraocular motions intact. No scleral icterus. No injection or drainage. ENT: Mucous membranes pink and moist. NECK: Trachea midline. No JVD, bruits or lymphadenopathy. Supple, nontender, no meningeal signs. CARDIOVASCULAR: Regular rate and rhythm without murmurs, gallops, or rubs. RESPIRATORY: Decreased breath sounds left base. GASTROINTESTINAL: Abdomen soft, non-tender, nondistended. EXTREMITIES: No clubbing, cyanosis, or edema. NEUROLOGIC: Alert, oriented, speech fluent, full upper and lower motor strength, no focal deficits evident. DERMATOLOGIC: No rashes or skin lesions. Objective Labs 05/27/24 04:42 05/27/24 04:42 Labs: Laboratory Results - last 24 hr 05/26/24 05/27/24 17:15 04:42 WBC 0.9 L* RBC 2.40 L Hgb 9.1 L Hct 27.3 L MCV 114.1 H MCH 38.1 H MCHC 33.4 RDW 19.8 H Plt Count 269 Neut % (Auto) Not Reportable Lymph % (Auto) Not Reportable [place] % (Auto) Not Reportable Eos % (Auto) Not Reportable Baso % (Auto) Not Reportable Lymph # (Auto) Not Reportable [place] # (Auto) Not Reportable Baso # (Auto) Not Reportable Total Counted 100 Seg Neutrophils % 43.0 Band Neutrophils % 12.0 H Lymphocytes % (Manual) 34.0 Monocytes % (Manual) 4.0 Eosinophils % (Manual) 1.0 L Blast Cells % 6.0 H Neutrophils # (Manual) 495 L Hypogranular Neuts Cancelled Platelet Estimate Adequate on smear RBC Morphology See below Anisocytosis 1+ H Macrocytosis 1+ H Sodium 134 L Potassium 4.4 Chloride 105 Carbon Dioxide 23 BUN 15 Creatinine 0.55 Estimated GFR > 60 BUN/Creatinine Ratio 27.3 H Glucose 96 Calcium 9.0 Total Bilirubin 1.3 AST 102 H ALT 71 H Alkaline Phosphatase 501 H NT-Pro-B Natriuret Pep 1610 H Total Protein 5.3 L Albumin 2.8 L Globulin 2.5 Albumin/Globulin Ratio 1.1 Urine Color Yellow Urine Appearance Clear Urine pH 5.5 Ur Specific [place] >=1.030 H Urine Protein 2+ H Urine Glucose (UA) Negative Urine Ketones Trace H Urine Occult Blood 1+ H Urine Nitrate Negative Urine Bilirubin Negative Urine Urobilinogen 0.2 Ur Leukocyte Esterase Negative Urine RBC 1-5/hpf Urine WBC 0-1/hpf Ur Squamous Epith Cells 5-10 /hpf H Urine Bacteria Occasional (0-1) Urine Mucus 3+ H Ur Culture Indicated? Cult not indicated Vol Urine Centrifuged 10ml (spun) [facility] Medical History Adnexal mass Urethral prolapse Pyoderma gangrenosum Drug-induced adrenocortical insufficiency Acute hypoxic respiratory failure Acute myelogenous leukemia Trigger finger, right ring finger Post-COVID syndrome DVT (deep venous thrombosis) Eczematous dermatitis Osteopenia Family history of melanoma Personal history of malignant melanoma Family history of colon cancer BPPV (benign paroxysmal positional vertigo) Urinary incontinence Chronic insomnia Irritable bowel syndrome with diarrhea GERD without esophagitis Impaired fasting glucose Acquired hypothyroidism Mixed hyperlipidemia History of traumatic brain injury Actinic keratosis (~1999) Mumps Measles (~1953) Chicken pox (~1951) Tinnitus (~2007) Thyroid nodule (~1980) Skin cancer (~1999) Melanoma (~2018) Surgical History Anesthesia History of varicose vein stripping (~1985) History of thyroidectomy (~1975) History of hysterectomy (~2010) Family History Father Cancer Mother Cancer Brother Cancer Grandfather Diabetes mellitus Grandmother Cancer Social History details: (Juan), four daughters household members: spouse Smoking Status: Never smoker alcohol intake: current Assessment & Plan Assessment & Plan narrative: 1. Neutropenic fever vs bacterial and or fungal pneumonia. - Continue cefepime plus home levaquin and voriconazole. MRSA screen negative Will also add micafungin for double coverage with voraconazole given CTA appearance with peripheral nodular densities with lobular thickening despite voriconazole therapy. - R sided pulmonary infiltrates, have previously been seen though worsening on recent CXR. Neutrophils at 495 on manual count today. - worsening O2 requirements today still, CTA was positive for PE. She was only taking 2.5 mg of apixaban BID at home due to interaction with voraconazole. Discussed with patient and family different management options last night, risk of bleeding etc, and elected to proceed with 10 mg BID of apixaban therapy at this time for treatment of her PE> 2. Acute respiratory failure with increased hypoxemia, bilateral subsegmental PE, and possible fungal pneumonia. - CTA 05/26 with multiple pulmonary emboli - increased eliquis to 10 mg BID for active treatment for 1 week after discussion with family of various treatment options including temporary heparin infusion, Lovenox, Warfarin, and apixaban. - she is on heated high flow today - will double cover for fungal pneumonia with voriconazole and micafungin given CT findings which can be consistent with fungal infeciton. continue cefepime. Culture if sputum produced. - TTE ordered today, awaiting results, proBNP slightly elevated. - she is supposed to be on lifelong anticoagulation. 3. Mild transaminitis. Monitor LFTs for now. 4. Headache, improved. 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 Treat symptomatically and monitor. 5. Dehydration. 6. Hypothyroidism. Continue home Synthroid. 7. Hyperlipidemia. Continue home statin. 8. DVT. Continue home apixaban 9. Code status. Full code. Dispo: likely in the hospital for multiple days. If continued decline consider goals of care discussions. Discussed management today with family, and patient's outpatient oncologist at [facility] to formulate the above history, assessment and plan. Time-Based Coding :: [TOTAL MINUTES] spent with patient and on the chart (including review of chart, obtaining history, exam, reviewing outside data, placing orders, documenting exam and treatment plan, and counseling patient) on [DATE]. Quality VTE Deep Vein Thrombosis/Pulmonary Embolism Present on Admission: No
[2024-05-27] MEDS: SODIUM CHLORIDE 0.9% 1,000 ML 1000 ML IV (15:52)
[2024-05-27] MEDS: MICAFUNGIN 100 MG in SODIUM CHLORIDE 0.9% 100 ML IV (16:22)
--- NOTE | 2024-05-27 17:16 | P.DS_ITS ---
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 Of note, the patient was seen earlier today in our ER department. The patient was seen for a headache with negative work up including brain MRI. The patient was sent home with her . Per the report, after shortly being home, the patient developed a fever of 103.8F. The patient also has increased fatigue, but denies any nausea, vomiting, chest pain, down pain, coughing, or increasing shortness of breath. In our emergency room, the patient was stable with mild tachycardia. The patient was requiring 2L of oxygen per nasal cannula. Chest x-ray suggested focal pneumonia. The patient lab show neutropenia. Due to pneumonia and neutropenic fever our ER physician did cover the patient for Cefepine and vancomycin. Blood cultures were drawn. The patient however, was not septic. Discharge Providers Provider Date of admission: 05/23/24 23:02 Discharge Date: 05/27/24 Primary care physician: Grabiel Montoya MD Consults: 05/23/24 23:15 Consult to Physical Therapy Evaluate & Treat Comment: Physician Instructions: Evaluate and Treat Discharge provider: Vasu Ferrer DO Summary Hospital Course Discharge Diagnosis: Please see hospital course by problem list noted below. Hospital Course: 1. Neutropenic fever vs bacterial and/or fungal pneumonia in setting of known AML. - Initilally patient was improving while on cefepime/vanc intitially plus home voriconazole and acyclovir (chronic ppx for AML) with improving fever curve but still persistent fever to 100.6 on 05/25 overnight. MRSA screen was negative and with improving fever and negative culture growth vancomycin was discontinued shortly after admission on 05/25. On 05/26 patient was doing well in the morning, but started to develop worsening oxygen requirements up to 7L via NC. Then worse on 05/27 to heated high flow NC. - On 05/26, afternoon CTA performed which showed peripheral nodular densities with lobular thickening despite voriconazole therapy. Added micafungin in consultation with outside infectious disease provider on 05/27 given worsening fever and CT appearance. Also recommended LDH (previously baseline appears around 350 in outpatient labs). LDH has yet to be drawn. Also showed subsegmental PE without signs of R heart strain. TTE was performed, which is copied below (report not seen until after transfer acceptance). - Neutrophils at 495 on manual count today. She has chronic neutropenia. Last chemo was around 1 month ago. Discussed with Dr. Woods at [facility] today. Dr. Price inpatient onc attending at as well was agreeable for transfer. - blood cultures from admission are without growth. Initial urine dip was negative, as was a formal UA done on 05/26 (though after IV antibiotics). A CT of her chest showed possible L hydronephrosis, however this was seen on a previous CT study as well in 2023 and follow up with renal ultrasound showed no hydronephrosis. With a negative UA this etiology was deemed less likely and not further evaluated. Presumed source is pulmonary at this time. - chronically is on voriconazole 150 mg BID, along with Levofloxacin and acyclovir for prophylaxis as an outpatient. 2. Acute respiratory failure with increased hypoxemia, bilateral subsegmental PE, and possible fungal pneumonia. New diagnosis of possible acute heart failure with preserved/borderline EF (40-45%). - CTA 05/26 with multiple pulmonary emboli with worsening O2 requirements today still. She is supposed to be on lifelong anticoagulation with prior DVT and she was only taking 2.5 mg of apixaban BID at home due to interaction with voraconazole. - Discussed with patient and family different management options last night, risk of bleeding etc, and elected to proceed with 10 mg BID of apixaban therapy at this time for treatment of her PE rather than heparin infusion, Lovenox injections, or transition to coumadin therapy. - increased eliquis to 10 mg BID for active treatment for 1 week after above discussion. Consider changing antifungal medications possibly in consultation with infectious disease and/or pharmacists at accepting facility. - she is on heated high flow today, 40L at 50% FiO2. Discussed goals of care, patient clearly stated she wanted everything done if there was a chance she could improve. She also understands the seriousness of her uncurable AML at the same time along with the seriousness of her infection, and is realistic that she may not recover. This was also discussed with spouse, Juan, and daughter at bedside. She has two other daughter's whom Juan will call. - voriconazole and micafungin given CT findings which can be consistent with fungal infection in the setting of voriconazole ppx as an outpatient. continued cefepime as discussed above. Culture if sputum produced but none this far. [facility] attending, oncologist Dr. Price, and outside infectious disease with probable need for bronchoscopy which the patient has had previously (did not find any etiology at that time either for her pulmonary findings on previous imaging - this is summarized well in Dr. Woods's oncology note from earlier this month). - TTE ordered today for further evaluation after PE findings and hypoxia, showed an EF of 40-45% which appears new along with anterior and anterolateral hypokinesis from base to apex. She has normal RV systolic function. RVSP is est. to be 39 mmHg. No significant valvular abnoramlalities. At this time with fever, borderline hypotension and tachycardia will not diurese, but this can be considered at accepting MICU. 3. Mild transaminitis. Monitor LFTs for now. Has been slowly increasing since admission, with Tbili from 0.5 to 1.3, AST up to 102 and ALT up to 71. May be related to acute illness, hypoxia, drug induced, but etiology not entirely clear. On available abdominal imaging there is not an apparent gallbladder. 4. Headache, improved. No evidence of DEMO EVENT SPECIALIST infection or metastatic disease. Treat symptomatically and monitor. 5. Hypothyroidism. Continued home Synthroid. 6. Hyperlipidemia. Continued home statin. Consider cessation if LFTs increasing further. 7. chronic low back pain - continues on gabapentin at regular home dosing. 8. History of Sweet Syndrome / Pyoderma Gangrenosum - continues on dapsone therapy. With healing leg wound that does not appear to be infected on exam. 8. DVT. Apixaban 9. Code status. Full code. Discussed as noted above. [facility]po[facility] Accept[facility] attending in the MICU Dr. Torres I spent 60 minutes providing critical care management this patient. This excludes time spent in performing separately billed procedures. Time Spent with Patient Time spent: Greater than 30 minutes Exam Vital Signs (past 8 hours): - 05/27/24 12:30 05/27/24 15:57 05/27/24 16:25 Temperature 101.6 F H Pulse Rate 121 H 117 H 118 H Respiratory Rate 18 27 H 18 Blood Pressure 108/47 L Pulse Oximetry 93 92 92 Fraction of Inspired Oxygen 50 SaO2/FiO2 Ratio 268 Oxygen Delivery Method Heated High Flow Oxygen Flow Rate 0 Narrative Exam Narrative: GENERAL: This is a well-nourished, well-developed patient, in no apparent distress. EYES: Pupils equal round and reactive. Extraocular motions intact. No scleral icterus. No injection or drainage. ENT: Mucous membranes pink and moist. NECK: Trachea midline. No JVD, bruits or lymphadenopathy. Supple, nontender, no meningeal signs. CARDIOVASCULAR: Regular rate and rhythm without murmurs, gallops, or rubs. RESPIRATORY: Decreased breath sounds left base. GASTROINTESTINAL: Abdomen soft, non-tender, nondistended. EXTREMITIES: No clubbing, cyanosis, or edema. NEUROLOGIC: Alert, oriented, speech fluent, full upper and lower motor strength, no focal deficits evident. Objective Imaging Echo: Radiologist's impression: The ejection fraction is estimated to be 40-45%. There is anterior and anterolateral hypokinesis from base to apical. The right ventricular systolic function is normal. Right ventricular systolic pressure is estimated to be 39 mmHg plus the clinically estimated CVP which cannot be estimated on this exam. No significant valvular abnormality. Procedure: A two-dimensional transthoracic echocardiogram with color flow and Doppler was performed. The study quality was technically adequate. There is no prior echocardiogram noted for this patient. The patient was in sinus tachycardia with heart rates between 112-118 bpm during the exam. Left Ventricle: The left ventricle is normal in size and wall thickness. The ejection fraction is estimated to be 40-45%. There is anterior and anterolateral hypokinesis from base to apical. Septal motion is consistent with conduction abnormality. Diastolic function could not be accurately assessed due to tachycardia. Right Ventricle: Borderline right ventricular enlargement. The right ventricular systolic function is normal. Atria: The left atrial size is normal. Right atrial size is normal. Doppler interrogation and injection of saline echo contrast shows no evidence for an interatrial shunt. Mitral Valve: The mitral valve is normal in structure and function. There is trace mitral regurgitation. Aortic Valve: The aortic valve is trileaflet. The aortic valve opens well. There is no aortic valve stenosis. No aortic regurgitation is present. Tricuspid Valve: The tricuspid valve is normal in structure and function. There is mild tricuspid regurgitation. Right ventricular systolic pressure is estimated to be 39 mmHg plus the clinically estimated CVP which cannot be estimated on this exam. Pulmonic Valve: The pulmonic valve leaflets are thin and pliable; valve motion is normal. There is trace pulmonic regurgitation. Great Vessels: The aortic root is normal size. The dimensions of the ascending aorta are normal. The IVC is of normal diameter and collapses greater than 50% with a sniff. This suggests a low right atrial pressure of 3 mm Hg. Pericardium/ Pleura There is a trivial pericardial effusion noted. There is no pleural effusion. MMode/2D Measurements & Calculations LVIDd: 5.5 cm LVOT diam: 2.2 cm LVIDs: 4.2 cm Ao root diam: 3.6 cm FS: 22.5 % asc Aorta Diam: 3.3 cm EPSS: 0.74 cm Ao Arch Diam (Prox Trans): 3.1 cm IVSd: 0.84 cm LVPWd: 0.67 cm LV moran. diameter/BSA (cm/m^2): 2.9 LV sys. diameter/BSA (cm/m^2): 2.2 LA A2 area: 19.2 cm2 RA long axis: 4.5 cm LA A4 area: 15.1 cm2 RA area: 11.8 cm2 LA length (vol): 4.7 cm RA vol: 26.1 ml LA vol: 52.8 ml RA : 13.6 ml/m2 LA vol index: 27.5 ml/m2 IVC diam: 1.2 cm RVD1 (basal): 4.1 cm TAPSE: 1.4 cm Doppler Measurements & Calculations Ao V2 max: 153.1 cm/sec LVOT Max Zev: 115.1 cm/sec Ao V2 mean: 105.7 cm/sec LV V1 max P.3 mmHg Ao max P.4 mmHg LV V1 VTI: 16.7 cm Ao mean P.0 mmHg NOAH(I,D): 2.8 cm2 Ao V2 VTI: 22.0 cm NOAH(V,D): 2.8 cm2 sev ratio: 0.76 NOAH indexed to BSA (cm^2/m^2): 1.5 MV E max zev: 75.9 cm/sec TR max zev: 301.1 cm/sec MV A max zev: 104.2 cm/sec TR max P.3 mmHg MV E/A: 0.73 PA V2 max: 119.3 cm/sec Med Peak E' Zev: 6.5 cm/sec PA V2 mean: 82.3 cm/sec E/E' med: 11.7 PA mean P.1 mmHg Lat Peak E' Zev: 10.1 cm/sec PA pr(Accel): 36.6 mmHg E/E' lat: 7.5 E/e' average: 9.6 MV dec time: 0.14 sec SV(LVOT): 61.6 ml Reading Physician:AM Labs 05/27/24 04:42 05/27/24 04:42 Labs: Laboratory Results - last 24 hr 05/26/24 05/27/24 17:15 04:42 WBC 0.9 L* RBC 2.40 L Hgb 9.1 L Hct 27.3 L MCV 114.1 H MCH 38.1 H MCHC 33.4 RDW 19.8 H Plt Count 269 Neut % (Auto) Not Reportable Lymph % (Auto) Not Reportable [place] % (Auto) Not Reportable Eos % (Auto) Not Reportable Baso % (Auto) Not Reportable Lymph # (Auto) Not Reportable [place] # (Auto) Not Reportable Baso # (Auto) Not Reportable Total Counted 100 Seg Neutrophils % 43.0 Band Neutrophils % 12.0 H Lymphocytes % (Manual) 34.0 Monocytes % (Manual) 4.0 Eosinophils % (Manual) 1.0 L Blast Cells % 6.0 H Neutrophils # (Manual) 495 L Hypogranular Neuts Cancelled Platelet Estimate Adequate on smear RBC Morphology See below Anisocytosis 1+ H Macrocytosis 1+ H Sodium 134 L Potassium 4.4 Chloride 105 Carbon Dioxide 23 BUN 15 Creatinine 0.55 Estimated GFR > 60 BUN/Creatinine Ratio 27.3 H Glucose 96 Calcium 9.0 Total Bilirubin 1.3 AST 102 H ALT 71 H Alkaline Phosphatase 501 H NT-Pro-B Natriuret Pep 1610 H Total Protein 5.3 L Albumin 2.8 L Globulin 2.5 Albumin/Globulin Ratio 1.1 Urine Color Yellow Urine Appearance Clear Urine pH 5.5 Ur Specific [place] >=1.030 H Urine Protein 2+ H Urine Glucose (UA) Negative Urine Ketones Trace H Urine Occult Blood 1+ H Urine Nitrate Negative Urine Bilirubin Negative Urine Urobilinogen 0.2 Ur Leukocyte Esterase Negative Urine RBC 1-5/hpf Urine WBC 0-1/hpf Ur Squamous Epith Cells 5-10 /hpf H Urine Bacteria Occasional (0-1) Urine Mucus 3+ H Ur Culture Indicated? Cult not indicated Vol Urine Centrifuged 10ml (spun) [facility] Medical History Adnexal mass Urethral prolapse Pyoderma gangrenosum Drug-induced adrenocortical insufficiency Acute hypoxic respiratory failure Acute myelogenous leukemia Trigger finger, right ring finger Post-COVID syndrome DVT (deep venous thrombosis) Eczematous dermatitis Osteopenia Family history of melanoma Personal history of malignant melanoma Family history of colon cancer BPPV (benign paroxysmal positional vertigo) Urinary incontinence Chronic insomnia Irritable bowel syndrome with diarrhea GERD without esophagitis Impaired fasting glucose Acquired hypothyroidism Mixed hyperlipidemia History of traumatic brain injury Actinic keratosis (~1999) Mumps Measles (~1953) Chicken pox (~1951) Tinnitus (~2007) Thyroid nodule (~1980) Skin cancer (~1999) Melanoma (~2018) Surgical History Anesthesia History of varicose vein stripping (~1985) History of thyroidectomy (~1975) History of hysterectomy (~2010) Family History Father Cancer Mother Cancer Brother Cancer Grandfather Diabetes mellitus Grandmother Cancer Social History details: (Juan), four daughters household members: spouse Smoking Status: Never smoker alcohol intake: current Discharge Plan Discharge Plan Patient Disposition: [facility] Provider Discharge Comment: See discharge summary Discharge Health Status Precautions: [place] Diet/Activity/Treatments Diet: Diet as Tolerated and Regular Liquid consistency: Normal/Thin Food texture: Regular Activity: As tolerated Discharge Data Primary Care Provider: Grabiel Montoya VTE Deep Vein Thrombosis/Pulmonary Embolism Present on Admission: No
--- NOTE | 2024-05-27 18:43 | P.TELICUCN_ITS ---
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 05/23 blood cultures are NGTD. She is on broad-spectrum antimicrobials including acyclovir, cefepime, micafungin and levofloxacin. Code status is FULL CODE. 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 Trigger finger, right ring finger Post-COVID syndrome DVT (deep venous thrombosis) Eczematous dermatitis Osteopenia Family history of melanoma Personal history of malignant melanoma Family history of colon cancer BPPV (benign paroxysmal positional vertigo) Urinary incontinence Chronic insomnia Irritable bowel syndrome with diarrhea GERD without esophagitis Impaired fasting glucose Acquired hypothyroidism Mixed hyperlipidemia History of traumatic brain injury Actinic keratosis (~1999) Mumps Measles (~1953) Chicken pox (~1951) Tinnitus (~2007) Thyroid nodule (~1980) Skin cancer (~1999) Melanoma (~2018) Surgical History Anesthesia History of varicose vein stripping (~1985) History of thyroidectomy (~1975) History of hysterectomy (~2010) Family History Father Cancer Mother Cancer Brother Cancer Grandfather Diabetes mellitus Grandmother Cancer Social History details: (Juan), four daughters household members: spouse Smoking Status: Never smoker alcohol intake: current Current Medications Current Medications Medications: Home Medications levothyroxine 100 mcg tablet 100 mcg PO DAILY #90 tabs 07/26/23 [Rx Confirmed 05/24/24] apixaban 5 mg tablet (Eliquis) 2.5 mg PO BID 09/03/23 [History Confirmed 05/26/24] Disabled Parking Permit 1 ea Not Applicable DAILY #1 ea 12/06/23 [Rx Confirmed 05/24/24] acyclovir 800 mg tablet 800 mg PO BID 12/06/23 [History Confirmed 05/24/24] levofloxacin 750 mg tablet 750 mg PO DAILY 12/06/23 [History Confirmed 05/24/24] omeprazole 20 mg capsule,delayed release 20 mg PO DAILY 12/06/23 [History Confirmed 05/24/24] potassium chloride 20 mEq tablet,extended release(part/cryst) 20 meq PO BID 12/06/23 [History Confirmed 05/24/24] pravastatin 80 mg tablet 80 mg PO BEDTIME 12/06/23 [History Confirmed 05/24/24] voriconazole 50 mg tablet 150 mg PO BID 12/06/23 [History Confirmed 05/24/24] lidocaine 5 % topical ointment 1 applic topical Q4HR PRN pain #50 grams 03/06/24 [Rx Confirmed 05/24/24] hydromorphone 2 mg tablet (Dilaudid) 2 mg PO Q4H PRN pain #14 tabs 05/23/24 [Rx Confirmed 05/24/24] calcium carbonate 500 mg PO BID PRN gerd 05/24/24 [History Confirmed 05/24/24] dapsone 25 mg tablet 50 mg PO DAILY 05/24/24 [History Confirmed 05/24/24] diphenhydramine HCl 50 mg capsule 75 mg PO BEDTIME 05/24/24 [History Confirmed 05/24/24] gabapentin 300 mg capsule 300 mg PO DAILY 05/24/24 [History Confirmed 05/24/24] gabapentin 600 mg tablet 600 mg PO BEDTIME 05/24/24 [History Confirmed 05/24/24] trospium 20 mg tablet 20 mg PO BID 05/24/24 [History Confirmed 05/24/24] Visit Medications (administered) Generic Name Dose Route Start Last Admin Trade Name Freq PRN Reason Stop Dose Admin Acetaminophen 650 mg 05/27/24 13:55 05/27/24 15:52 Acetaminophen 325 Mg Tablet PO 650 mg Q6H PRN Administration Pain, Mild (1-3) Acyclovir 800 mg 05/24/24 09:00 05/27/24 09:34 Acyclovir 400 Mg Tablet PO 800 mg BID COY Administration Apixaban 10 mg 05/27/24 09:00 05/27/24 09:34 Apixaban 5 Mg Tablet PO 06/02/24 09:01 10 mg BID COY Administration Benzocaine 1 each 05/26/24 14:51 05/26/24 15:04 Benzocaine/Menthol 1 Thor Pkt PO 1 each Q1HR PRN Administration cough Benzonatate 100 mg 05/24/24 01:56 05/26/24 15:04 Benzonatate 100 Mg Capsule PO 100 mg TID PRN Administration Cough Diphenhydramine HCl 75 mg 05/24/24 21:00 05/26/24 21:25 Diphenhydramine 25 Mg Tablet PO 75 mg BEDTIME COY Administration Gabapentin 300 mg 05/24/24 09:00 05/27/24 09:34 Gabapentin 300 Mg Capsule PO 300 mg DAILY COY Administration Gabapentin 600 mg 05/24/24 21:00 05/26/24 21:25 Gabapentin 600 Mg Tablet PO 600 mg BEDTIME COY Administration Heparin Sodium (Porcine) 500 unit 05/25/24 11:51 05/27/24 18:11 Heparin 500 Unit/5 Ml Port Flush IV 500 unit PRN PRN Administration Flush Hydromorphone HCl 2 mg 05/24/24 01:57 05/24/24 12:57 Hydromorphone 2 Mg Tablet PO 2 mg Q4H PRN Administration pain Hydromorphone HCl 1 mg 05/24/24 18:20 05/24/24 18:43 Hydromorphone 1 Mg Inj IV 1 mg Q2H PRN Administration Pain, Moderate (4-6) Micafungin Sodium 100 mg/ 100 mls @ 100 mls/hr 05/27/24 16:00 05/27/24 16:22 Sodium Chloride IV 100 mls/hr Q24H COY Administration Cefepime HCl 2 gm/ Sodium 100 mls @ 200 mls/hr 05/27/24 18:30 05/27/24 18:36 Chloride IV 200 mls/hr Q8H COY Administration Levofloxacin 750 mg 05/24/24 09:00 05/27/24 09:35 Levofloxacin 250 Mg Tablet PO 750 mg DAILY OCY Administration Levothyroxine Sodium 100 mcg 05/24/24 06:00 05/27/24 05:30 Levothyroxine 100 Mcg Tablet PO 100 mcg 0600 COY Administration Metoclopramide HCl 5 mg 05/24/24 18:19 05/26/24 16:18 Metoclopramide 10 Mg/2 Ml Inj IV 5 mg Q6HR PRN Administration Nausea And Vomiting Non-Formulary Medication 50 mg 05/24/24 14:00 05/27/24 09:34 Dapsone PO 50 mg DAILY COY Administration Non-Formulary Medication 20 mg 05/24/24 21:00 05/27/24 09:35 Trospium PO 20 mg BID COY Administration Nf (Voriconazole 3 each 05/24/24 21:00 05/27/24 09:35 50mg Tabs) PO 3 each BID COY Administration Ondansetron HCl 4 mg 05/23/24 23:11 05/27/24 14:30 Ondansetron 4 Mg/2 Ml Inj IV 4 mg Q8HR PRN Administration Nausea And Vomiting Pantoprazole Sodium 20 mg 05/24/24 06:00 05/27/24 05:[address] 20 Mg Tablet PO 20 mg 0600 [facility] Administration Potassium Chloride 20 meq 05/24/24 09:00 05/27/24 09:35 Potassium Chloride 20 Meq Tab PO 20 meq BID COY Administration Pravastatin Sodium 80 mg 05/24/24 21:00 05/26/24 21:25 Pravastatin 20 Mg Tablet PO 80 mg BEDTIME COY Administration Sumatriptan Succinate 25 mg 05/24/24 22:20 05/25/24 17:19 Sumatriptan 25 Mg Tablet PO 25 mg Q2H PRN Administration Headache Exam Vital Signs (past 8 hours): - 05/27/24 12:30 05/27/24 15:57 05/27/24 16:25 Temperature 101.6 F H Pulse Rate 121 H 117 H 118 H Respiratory Rate 18 27 H 18 Blood Pressure 108/47 L Pulse Oximetry 93 92 92 05/27/24 17:34 Temperature 98.7 F Pulse Rate Respiratory Rate Blood Pressure Pulse Oximetry Fraction of Inspired Oxygen 50 SaO2/FiO2 Ratio 268 Oxygen Delivery Method Heated High Flow Oxygen Flow Rate 0 Const General: frail appearing Nutritional Appearance: thin Resp Effort & Inspection: normal respiratory effort Cardio Rhythm: regular rhythm Objective Labs 05/27/24 04:42 05/27/24 04:42 Labs: Laboratory Results - last 24 hr 05/27/24 04:42 WBC 0.9 L* RBC 2.40 L Hgb 9.1 L Hct 27.3 L MCV 114.1 H MCH 38.1 H MCHC 33.4 RDW 19.8 H Plt Count 269 Neut % (Auto) Not Reportable Lymph % (Auto) Not Reportable [place] % (Auto) Not Reportable Eos % (Auto) Not Reportable Baso % (Auto) Not Reportable Lymph # (Auto) Not Reportable [place] # (Auto) Not Reportable Baso # (Auto) Not Reportable Total Counted 100 Seg Neutrophils % 43.0 Band Neutrophils % 12.0 H Lymphocytes % (Manual) 34.0 Monocytes % (Manual) 4.0 Eosinophils % (Manual) 1.0 L Blast Cells % 6.0 H Neutrophils # (Manual) 495 L Hypogranular Neuts Cancelled Platelet Estimate Adequate on smear RBC Morphology See below Anisocytosis 1+ H Macrocytosis 1+ H Sodium 134 L Potassium 4.4 Chloride 105 Carbon Dioxide 23 BUN 15 Creatinine 0.55 Estimated GFR > 60 BUN/Creatinine Ratio 27.3 H Glucose 96 Calcium 9.0 Total Bilirubin 1.3 AST 102 H ALT 71 H Alkaline Phosphatase 501 H NT-Pro-B Natriuret Pep 1610 H Total Protein 5.3 L Albumin 2.8 L Globulin 2.5 Albumin/Globulin Ratio 1.1 Assessment & Plan Assessment and plan (1) Acquired hypothyroidism: Status: Acute Plan: -On chronic levothyroxine (2) Pyoderma gangrenosum: Status: Acute Plan: -On chronic dapsone (3) Acute hypoxic respiratory failure: Status: Acute Plan: -Continue antimicrobials as detailed in HPI -Continue HFNC -Patient is (+) 1.7 L and has borderline HFrEF --> Lasix 40 mg IV x 1 Time-Based Coding :: 35 minutes of aggregated critical care time excluding procedural time spent with patient and on the chart (including review of chart, obtaining history, exam, reviewing outside data, placing orders, documenting exam and treatment plan, and counseling patient) on 05/27/2024.
[2024-05-27] MEDS: GABAPENTIN 600 MG TABLET PO (20:27)
[2024-05-27] MEDS: PRAVASTATIN 20 MG TABLET 80 MG PO (20:27)
[2024-05-27] MEDS: HYDROMORPHONE 1 MG INJ IV (22:20)
--- NOTE | 2024-05-27 22:50 | PC.NURSE ---
pt A&O x4, c/o pain in lower back, dilaudid given with effect, lungs clear and decreased, O2 sats >90% on HHF NC 55% 40L, VSS, afebrile, ST 100s with BBB, abd soft, purewick in place for small lino urine, dsg to L posterior calf intact, R chest port patent and HL, at bedside, EMS left with pt in stable condition at 2240 to transfer to , report call to Guillermo FUENTES at [phone]
== END 2024-05-27 22:40 | disposition short-term general hospital (02) | DRG 193 ==
LOC: ED 22:43 → AC 23:04 → ICU 05-27 16:41
PROVIDERS: Internal Medicine; Admitting Provider Internal Medicine; Emergency Provider Emergency Medicine; PCP Internal Medicine; Referring Provider Emergency Medicine; Visit Provider Internal Medicine
DX: J15.9 Unspecified bacterial pneumonia (principal); I26.94 Multiple subsegmental thrombotic pulmonary emboli without acute cor pulmonale; J96.01 Acute respiratory failure with hypoxia; I50.31 Acute diastolic (congestive) heart failure; C92.00 Acute myeloblastic leukemia, not having achieved remission; L88 Pyoderma gangrenosum; J18.8 Other pneumonia, unspecified organism; R74.01 Elevation of levels of liver transaminase levels; E03.9 Hypothyroidism, unspecified; E78.2 Mixed hyperlipidemia; R50.81 Fever presenting with conditions classified elsewhere; R51.9 Headache, unspecified; E86.0 Dehydration; D70.9 Neutropenia, unspecified; G89.29 Other chronic pain; M54.50 Low back pain, unspecified; Z79.01 Long term (current) use of anticoagulants; Z86.718 Personal history of other venous thrombosis and embolism; R79.89 Other specified abnormal findings of blood chemistry
CPT/HCPCS: 36415; 36591; 70450; 70544; 70549; 70553; 71045; 71275; 80048; 80053; 81001; 82550; 83605; 83690; 83880; 84145; 84484; 85007; 85025; 87040; 87633; 87797; 93005; 93010; 93306; 94762; 96365; 96367; 96374; 96375; 97162; 97530; 99284; 99285; A9579; J0134; J0692; J1171; J1200; J1642; J1885; J2248; J2405; J2765; Q9967